=== PATIENT | male | born 1955 | race Caucasian/White ===

== ENCOUNTER → 2017-04-25 10:19 | Outpatient (CLI) | payer BC, SELFPAY ==
[2017-04-25 10:53] LABS: Blood Urea Nitrogen 18 mg/dL (7-18); Creatinine,Serum 0.83 mg/dL (0.70-1.30); Estimated Glomerular Filt Rate 95 ml/min (>60); GFR (African American) 114 ML/MIN (>60)
== END ==
PROVIDERS: PCP Otolaryngology; Visit Provider Otolaryngology
DX: R59.0 Localized enlarged lymph nodes (principal)
CPT/HCPCS: 36415; 82565; 84520

== ENCOUNTER → 2017-05-09 08:33 | Outpatient (CLI) | payer BC, SELFPAY ==
--- NOTE | 2017-05-09 08:41 | CT_ITS ---
CT soft tissue neck w con INDICATION: Neck swelling, difficulty with intubation with possible mass while intubating, enlarged lymph nodes ITS.REASON: neck swelling ORDERING PHYSICIAN: Brendan Stern MD PATIENT AGE: 61 years COMPARISON: None TECHNIQUE: Axial images are obtained with 75 mL's of Isovue-370 contrast. Sagittal and coronal reformatted images are reviewed as well. All CT scans at the facility use one or more dose reduction, viz: automated exposure control; ma/kV adjustment per patient size (including targeted exams where dose is matched to indication; i.e. head); or iterative reconstruction technique. FINDINGS: There is a 3.4 x 3.2 x 2.6 cm fatty mass within the hypopharynx. This is well-circumscribed with only some minimal slight increased density centrally. This is located below the level of the epiglottis and just superior to the vocal folds epicentered within the central and posterior aspect of the hypopharynx but with significant narrowing of the airway anteriorly. This is at the C4-C5 level. This is consistent with a lipoma. There is some slight increased density centrally. A low-grade liposarcoma would be included in the differential diagnosis. There are scattered small nodes within the neck. No dominant adenopathy.. The thyroid gland has an unremarkable appearance. There are few small nodes in the superior mediastinum. Lung apices are clear. There is mild degenerative disc disease at C6-C7. There is moderate mucosal thickening of the ethmoid sinuses with retention cyst in the sphenoid sinuses and bilateral maxillary sinuses measuring up to 2.6 cm in the right maxillary sinus. 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 Low-grade liposarcoma felt to be less likely but not totally excluded due to slight increased density within the central aspect of the lesion. No adenopathy or other significant anomalies.
[2017-05-09 08:51] LABS: Blood Urea Nitrogen 15 mg/dL (7-18); Creatinine,Serum 0.67 mg/dL (0.70-1.30); Estimated Glomerular Filt Rate 121 ml/min (>60); GFR (African American) 146 ML/MIN (>60)
== END ==
PROVIDERS: Family Provider Family Medicine; PCP Otolaryngology; Visit Provider Otolaryngology
DX: R59.0 Localized enlarged lymph nodes (principal)
CPT/HCPCS: 36415; 70491; 82565; 84520; Q9967

== ENCOUNTER 2022-11-21 08:28 | Emergency (ER) | payer BC, SELFPAY ==
[2022-11-21] VITALS (9 sets, daily range): BP systolic 116–162; BP diastolic 70–115; PULSE 57–83; RESP 16; TEMP 36.9; O2SAT 90–97; BMI 28.8
--- NOTE | 2022-11-21 08:43 | PC.NURSE ---
covid/flu sent to lab
[2022-11-21 08:45] LABS: Coronavirus 19, PCR Not Detected (NotDetected); Influenza A, PCR Not Detected (NotDetected); Influenza B, PCR Not Detected (NotDetected)
--- NOTE | 2022-11-21 08:47 | XR_ITS ---
FINAL REPORT CLINICAL HISTORY: fever, diarrhea, ronchi L>R FINDINGS: Two views of the chest were obtained. The heart size and pulmonary vascularity are within normal limits. The mediastinum is normal. There is a 7 cm right midlung mass most worrisome for neoplasm. Localized infection is also a possibility but less likely. There is no pneumothorax. The bony thorax is intact. IMPRESSION: Right mid lung mass worrisome for neoplasm. Chest CT with contrast is recommended for further evaluation. Reviewed, Interpreted and Dictated by Eduard Nye III, MD Transcribed by Tia Bangura Authenticated and [facility]
--- NOTE | 2022-11-21 08:55 | HMH.EDGENADL ---
Discharge Plan Disposition Patient Disposition: Still a Patient Condition: Good Prescriptions Prescriptions: New albuterol sulfate 90 mcg/actuation aerosol powdr breath activated 2 inh inhalation Q4H PRN (Reason: shortness of breath or wheezing) Qty: 1 0RF albuterol sulfate 2.5 mg/0.5 mL solution for nebulization 2.5 mg inhalation Q4H PRN (Reason: bronchospasm) Qty: 30 0RF No Action montelukast [Singulair] 10 mg tablet 10 mg PO QAM Qty: 90 2RF fluticasone propionate [Flonase Allergy Relief] 50 mcg/actuation spray,suspension 1 spray INTRANASAL ONCE Qty: 9.9 4RF Rx Instructions: administer into each nostril Referrals Follow up/Referrals: Shayla Grajeda MD [Staff Physician] - See instructions Jj Coates MD [Primary Care Provider] - See instructions Joie Patel MD [Physician] - See instructions Activity Restrictions/Add. Instructions Additional Instructions/Restrictions: You were evaluated in the emergency department today. Your x-ray and CT scan of your chest are highly concerning for cancer of your right lung. Given this, I recommend very quick outpatient follow-up with your primary care provider, oncology, and pulmonology. I have provided you with information for oncology and pulmonology. Dr. Grajeda's office is to call you with an appointment. If you do not hear from them, please contact them. Please also call Dr. Coates's office to schedule an appointment as soon as possible. Dr. Patel is the rodent exterminator, and he will be scheduling you for an appointment as well. Please return to the emergency department for new or worsening symptoms, such as difficulty breathing, significant lightheadedness, or other concerns. 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 Clinical Impressions Clinical Impression: Lung neoplasm Instructions Patient Instructions: DI for Lung Cancer Discharge ED Provider: Tasia López General Adult HPI General Chief complaint: Fever Stated complaint: fever Time Seen by Provider: 11/21/22 08:39 Mode of Arrival: Ambulatory Source of Information: Patient Limitations: No Limitations Description of Symptoms (Recalled from ER Triage Doc. by RN): Patient complaint of fever and no energy for 3 days. History of Present Illness HPI narrative: This patient is a 67-year-old male who denies significant past medical history presented to the emergency department for evaluation with concern for subjective fevers, lack of energy, and mild diarrhea for approximately 3 days. He denies any other concerns, such as sore throat, cough, congestion, abdominal pain, nausea, vomiting, hematochezia, melena, or other concerns. He denies any rashes, swelling, or wounds. He states that he just feels like he cannot go and has been listless. He does note smoking history. Related Data Previous Rx's Medication Instructions Recorded fluticasone propionate 50 1 spray intranasal ONCE #9.9 grams 04/25/17 mcg/actuation nasal spray,suspension (Flonase Allergy Relief) montelukast 10 mg tablet 10 mg PO QAM #90 tabs 04/25/17 (Singulair) albuterol sulfate 2.5 mg/0.5 mL 2.5 mg (0.5 mL) inhalation Q4H PRN 11/21/22 solution for nebulization bronchospasm #30 ea albuterol sulfate 90 mcg/actuation 2 inh inhalation Q4H PRN shortness 11/21/22 breath activated powder inhaler of breath or wheezing #1 ea Allergies Allergy/AdvReac Type Severity Reaction Status Date / Time No Known Allergies Allergy Verified 05/15/17 11:52 [facility] Disclaimer: The information contained in this section may have been updated after the patient was seen, as this information can be updated by other users. Medical History Dyspnea on exertion Hilar lymphadenopathy Lung mass Mediastinal lymphadenopathy Pneumonia Smoking greater than 30 pack years Social History (Updated 11/21/22 @ 14:04 by Joie Patel MD) Smoking Status: Current every day smoker tobacco type: cigarettes packs per da
[2022-11-21 09:44] LABS: Chloride 104 mmol/L (98-107); Potassium 3.9 mmoL/L (3.5-5.1); Sodium 135 mmol/L (136-145)
[2022-11-21 09:46] LABS: Basophils # 0.1 K/mm3 (0-0.2); Basophils % 1.2 % (0.1-2.0); Eosinophils # 0.3 K/mm3 (0.0-0.4); Eosinophils % 2.6 % (0.1-12.0); Hematocrit 45.3 % (42.0-52.0); Lymphocytes # 2.3 K/mm3 (0.7-4.5); Lymphocytes % 19.8 % (10-50); Mean Corpuscular Hemoglobin 28.8 pg (27.0-31.2); Mean Corpuscular Volume 87.3 fl (80-94); Mean Platelet Volume 9.1 fl (7.4-10.4); Monocytes # 0.7 K/mm3 (0.1-1.0); Monocytes % 6.2 % (1.7-9.3); Neutrophils # 7.9 K/mm3 (1.8-7.8); Neutrophils % 70.1 % (37.0-80.0); Platelet Count 288 K/mm3 (142-424); Red Blood Count 5.19 M/mm3 (4.60-6.20); Red Cell Distribution Width 12.9 % (11.5-17.5); White Blood Count 11.3 K/mm3 (4.8-10.8)
[2022-11-21 09:47] LABS: Alanine Aminotransferase 23 U/L (12-78); Albumin Level 4.1 g/dl (3.5-5.0); Alkaline Phosphatase 61 U/L (38-126); Anion Gap 14.9 mEq/L (5-15); Aspartate Amino Transferase 31 U/L (17-59); Bilirubin,Total 0.5 mg/dl (0.2-1.3); Blood Urea Nitrogen 26 mg/dl (9-20); Calcium 8.5 mg/dl (8.4-10.2); Carbon Dioxide 20 mmol/L (22.0-30.0); Creatinine Clearance Estimated 89 mL/min (50-200); Estimated Glomerular Filt Rate 75 ml/min (>60); GFR (African American) 90 ML/MIN (>60); Globulin 4.1 g/dL (1.3-3.2); Glucose 110 mg/dl (74-100); Total Protein,Serum 8.2 g/dl (6.3-8.2)
--- NOTE | 2022-11-21 10:06 | PC.NURSE ---
Rounded on pt no needs at this time,call light at bs
--- NOTE | 2022-11-21 10:26 | CT_ITS ---
FINAL REPORT CLINICAL HISTORY: Abnormal chest x-ray COMPARISON: Chest x-ray dated 11/21/2022 FINDINGS: Axial CT images of the chest were obtained with contrast. Coronal reformatted images were also obtained. This study was performed with techniques to keep radiation doses as low as reasonably achievable, (ALARA). Individualized dose reduction techniques using automated exposure control or adjustment of mA and/or KV according to the patient's size were employed. There is mediastinal adenopathy. There is a right paratracheal node measuring 5.2 x 4.0 cm. A subcarinal lymph node measures 6 x 3.4 cm. There multiple other enlarged mediastinal lymph nodes. There is mild emphysema. There is an 8.3 x 6.5 cm right hilar mass consistent with neoplasm. Limited images of the upper abdomen reveal moderate ascites. IMPRESSION: 8.3 x 6.5 cm right hilar mass consistent with neoplasm. Mediastinal adenopathy. Reviewed, Interpreted and Dictated by Eduard Nye III, MD Transcribed by Tia Bangura Authenticated and [facility]
--- NOTE | 2022-11-21 12:55 | PC.NURSE ---
spoke with oncologist office for referral for pt to be seen
--- NOTE | 2022-11-21 13:04 | PC.NURSE ---
Paged to speak with
--- NOTE | 2022-11-21 13:56 | EXP.PULM.CON ---
History of Present Illness History of present illness: Mr. Daniel is a 67-year-old male current smoker greater than [id number] smoking history presented to the ER complaining of febrile illness and lack of energy for the last 3 days. Upon evaluation in the ED patient had a CT scan performed that showed lung mass along with mediastinal hilar lymphadenopathy highly concerning for malignancy at this point of time and pulmonary was called for further evaluation and management [facility] Disclaimer: The information contained in this section may have been updated after the patient was seen, as this information can be updated by other users. Medical History Dyspnea on exertion Hilar lymphadenopathy Lung mass Mediastinal lymphadenopathy Pneumonia Smoking greater than 30 pack years Social History Smoking Status: Current every day smoker tobacco type: cigarettes packs per day: 1 alcohol intake: current substance use type: denies use current occupational status: employed Travel in the last 8 weeks: None Review of Systems Constitutional Constitutional: Reports anorexia, Reports body ache(s), Reports fatigue, Reports poor appetite and Reports lethargy Eyes Eyes: Denies eye discharge, Denies dry eyes, Denies irritation and Denies itchy eyes ENT Ears, Nose, Mouth, and Throat: Denies epistaxis, Denies facial pain, Denies lip swelling and Denies throat swelling *Cardiovascular Cardiovascular: Reports dyspnea and Reports dyspnea on exertion *Respiratory Respiratory: Reports chest congestion, Reports cough, Reports dyspnea, Reports dyspnea on exertion, Reports excessive phlegm production and Reports wheezing *Gastrointestinal Gastrointestinal: Denies abdominal pain, Denies belching and Denies cramping *Musculoskeletal Musculoskeletal: Reports back pain, Reports myalgias and Reports other (No small joint swelling or Pain) Psychiatric Psychiatric: Denies homicidal ideation and Denies suicidal ideation Endocrine Endocrine: Reports fatigue and Denies heat intolerance Hematologic/Lymphatic Hematologic/Lymphatic: Denies easy bleeding and Denies lymphadenopathy Allergic/Immunologic Allergic/Immunologic: Denies itchy eyes, Denies lip swelling, Denies throat swelling and Reports wheezing Pulmonology Exam Inpatient Vital signs and Labs for Last 24 Hours: Temp Pulse Resp BP Pulse Ox O2 Del Method 98.4 F 59 L 16 154/90 H 97 Room Air 11/21/22 08:30 11/21/22 13:00 11/21/22 08:30 11/21/22 13:00 11/21/22 13:00 11/21/22 08:30 Laboratory Results - last 24 hr 11/21/22 08:41: SARS-CoV-2 (PCR) Not detected, Influenza A Untype (PCR) Not detected, Influenza Type B (PCR) Not detected 11/21/22 09:00: WBC 11.3 H, RBC 5.19, Hgb 15.0, Hct 45.3, MCV 87.3, MCH 28.8, MCHC 33.0, RDW 12.9, Plt Count 288, MPV 9.1, Neut % (Auto) 70.1, Lymph % (Auto) 19.8, [place] % (Auto) 6.2, Eos % (Auto) 2.6, Baso % (Auto) 1.2, Neut # (Auto) 7.9 H, Lymph # (Auto) 2.3, [place] # (Auto) 0.7, Eos # (Auto) 0.3, Baso # (Auto) 0.1, Sodium 135 L, Potassium 3.9, Chloride 104, Carbon Dioxide 20 L, Anion Gap 14.9, BUN 26 H, Creatinine 1.00, Estimated Creat Clear 89, Estimated GFR 75, Est GFR ( Amer) 90, Glucose 110 H, Calcium 8.5, Total Bilirubin 0.5, AST 31, ALT 23, Alkaline Phosphatase 61, Total Protein 8.2, Albumin 4.1, Globulin 4.1 H, Albumin/Globulin Ratio 1.0 L I & O for Labs for Last 24 Hours: Intake & Output 11/18/22 11/19/22 11/20/22 11/21/22 23:59 23:59 23:59 23:59 Weight 190 lb Constitutional: Present moderate distress Head: Present normocephalic and atraumatic ENT: Present normal exam, normal oropharynx and mucous membranes moist Neck: Present normal inspection and full ROM Respiratory: Present wheezes, crackles, diminished air movement and able to speak in complete sentences Cardiac: Present S1/S2, Tachycardia and radial pulses present GI: Present soft and distention; Absent tenderness or guarding Skin: Pr
--- NOTE | 2022-11-21 14:14 | PC.NURSE ---
Ning from called with pt follow up appointment in office on Nov 26 @ 10:45 and His procedure was scheduled for Dec 02 @ 11:30 but to remind pt before any of this can happen he needs to bring in proof of insurance information, relayed message to pt and also gave him a post it note with appointment information for both days
--- NOTE | 2022-11-21 14:18 | SW/DCPLANNER ---
Patient information/order has been faxed to [facility] for a nebulizer machine. Patient does not have insurance information on him at this time and understands to provide information to [facility] once he returns home.
== END 2022-11-21 14:22 | disposition still patient (30) ==
PROVIDERS: Emergency Provider Emergency Medicine; PCP Family Medicine
DX: R91.8 Other nonspecific abnormal finding of lung field (principal); R59.0 Localized enlarged lymph nodes; F17.210 Nicotine dependence, cigarettes, uncomplicated; R06.09 Other forms of dyspnea; R53.83 Other fatigue
CPT/HCPCS: 71046; 71260; 80053; 85025; 87636; 99284

== ENCOUNTER 2022-12-02 09:50 | Day surgery (SDC) | payer BC, SELFPAY ==
[2022-11-29 13:35] VITALS: BMI 29.7
[2022-12-02] VITALS (9 sets, daily range): BP systolic 104–185; BP diastolic 60–98; PULSE 80–103; RESP 18–22; TEMP 36.1–36.4; O2SAT 92–96
[2022-12-02 10:52] LABS: Anion Gap 10.1 mEq/L (5-15); Blood Urea Nitrogen 19 mg/dl (9-20); Carbon Dioxide 29 mmol/L (22.0-30.0); Chloride 103 mmol/L (98-107); Creatinine Clearance Estimated 91 mL/min (50-200); Estimated Glomerular Filt Rate 97 ml/min (>60); GFR (African American) 117 ML/MIN (>60); Glucose 107 mg/dl (74-100); Potassium 4.1 mmoL/L (3.5-5.1); Sodium 138 mmol/L (136-145)
[2022-12-02 10:55] LABS: Basophils # 0.2 K/mm3 (0-0.2); Basophils % 1.5 % (0.1-2.0); Eosinophils # 0.3 K/mm3 (0.0-0.4); Hematocrit 44.2 % (42.0-52.0); Hemoglobin 15.3 g/dL (14.1-18.0); Lymphocytes # 2.2 K/mm3 (0.7-4.5); Lymphocytes % 22.7 % (10-50); Mean Corpuscular HGB Conc 34.7 g/dL (31.8-35.4); Mean Corpuscular Hemoglobin 30.4 pg (27.0-31.2); Mean Corpuscular Volume 87.6 fl (80-94); Mean Platelet Volume 8.8 fl (7.4-10.4); Monocytes # 0.6 K/mm3 (0.1-1.0); Monocytes % 5.8 % (1.7-9.3); Neutrophils # 6.6 K/mm3 (1.8-7.8); Platelet Count 270 K/mm3 (142-424); Red Blood Count 5.04 M/mm3 (4.60-6.20); Red Cell Distribution Width 12.7 % (11.5-17.5); White Blood Count 9.8 K/mm3 (4.8-10.8)
--- NOTE | 2022-12-02 11:55 | EXP.ANES.CKL ---
[facility] Disclaimer: The information contained in this section may have been updated after the patient was seen, as this information can be updated by other users. Medical History Dyspnea on exertion Hilar lymphadenopathy Lung mass Mediastinal lymphadenopathy Pneumonia Smoking greater than 30 pack years Surgical History History of appendectomy History of surgery on upper extremity History of throat surgery History of tonsillectomy Family History Other Diabetes Family history of cancer Hypertension Social History Smoking Status: Current every day smoker tobacco type: cigarettes packs per day: 1 alcohol intake: former substance use type: denies use current occupational status: employed Travel in the last 8 weeks: None [facility] Anesthesia Checklist Patient Identification Patient Identification: Arm Band, Family and Verbal (Name & ) Structural Data Admitted From: Home Planned Operative Procedure/s: BRONCH w/EBUS Consent for Planned Operative Procedure(s) Verified: Yes Verified Documents: Surgical Consent and History and Physical NPO Status Verified Time NPO: 00:00 Chart Verification Results Verified: CBC, BMP and Chest Xray Additional verifications Patient : No Anesthesia Reactions: No Hx Blood Transfusions: No Blood Transfusion Reaction: No Previous Colonoscopy: No Cardiovascular Assessment Heart Sounds: S1 & S2 Pulse Rhythm: Irregular Peripheral Edema: No Airway Assessment Mallampati Score:: Class III C-Spine Mobility Assessed: Yes TMJ Mobility Assessed: Yes Dentition: Poor Dentition (Many missing. Nothing loose per pt.) Neurological Assessment Level of Consciousness: Awake, Alert and Appropriate Hx Seizures: No Numbness or tingling in extremities: No Anesthesia Plan Anesthesia Risk discussed: Yes Anesthesia Plan: Verified ASA Class: III Anesthesia Type: General
--- NOTE | 2022-12-02 13:44 | XR_ITS ---
FINAL REPORT CLINICAL HISTORY: BRONCH IN OR 1.0 min fluoro time 26.77 mGy FINDINGS: FLUOROSCOPY LESS THAN 1 HOUR HISTORY: Fluoroscopy for bronchoscopic evaluation. FINDINGS: Fluoroscopy was performed for bronchoscopy. A single spot film was obtained. 60 seconds of fluoroscopy time was used. IMPRESSION: As above. Reviewed, Interpreted and Dictated by Eduard Nye III, MD Transcribed by Diya Hernandez Authenticated and [facility]
--- NOTE | 2022-12-02 13:55 | EXP.BRONCH.N ---
Procedure: Date: 12/02/22 Patient Date of :: 1955 Procedure Performed:: Bronchoscopy airway examination, transbronchial and endobronchial lung biopsy, bronchoalveolar lavage, endobronchial ultrasound-guided fine-needle aspiration of lymph node Indications:: Lung mass and lymphadenopathy Performing Provider:: Joie Patel MD Referring Provider:: Dr: Jj Coates MD Sedation:: General anesthesia Procedure:: Bronchoscopy airway examination, transbronchial and endobronchial lung biopsy, bronchoalveolar lavage, endobronchial ultrasound-guided fine-needle aspiration of lymph node: A clean EBUS bronchoscopy was advanced the ET tube and lymph node surveillance was performed. Patient recovered lymphadenopathy station 4 and station 7. Five passes were performed at each forementioned ode station and the respective FNA sample was sent in CytoLyt for cytopathologic examination. EBUS bronchoscopy was retracted and A clean DIAGNOSTIC bronchoscopy was advanced through the ET tube and airways were examined up to subsegmental bronchi. Airways appeared grossly normal except for the noted endobronchial lesion in the right lower lobe bronchus partially occluding the airway lumen. Copious amount of mucoid secretions were suctioned from the left lower lobe bronchus. No evidence of active bleeding/old blood clots noted. Bronchoalveolar lavage was performed in the RIGHT LOWER LOBE with instillation of 60 cc normal saline with return of 30 cc back. BAL fluid was sent for cell count and differential along with bacterial fungal and AFB stain and cultures. Transbronchial biopsy was performed in the RIGHT LOWER LOBE with a total of 5 biopsies performed and were sent in formalin for cytopathologic examination. Endobronchial biopsies were also performed the noted RIGHT LOWER LOBE endobronchial lesion were sent in formalin for cytopathologic examination Patient tolerated the procedure with no immediate acute complications. We will follow the patient in pulmonary clinic in 7 to 10 days. Findings:: Please see the procedure note Recommendations:: Postoperative bronchoscopy instructions. Follow in pulmonary clinic in 5 to 7 days postprocedure Complications:: No acute immediate complication Estimated blood obtained (mL): 15
--- NOTE | 2022-12-02 14:10 | XR_ITS ---
FINAL REPORT CLINICAL HISTORY: post op bronchoscopy COMPARISON: 11/21/2022 FINDINGS: A single portable view of the chest was obtained. The heart size and pulmonary vascularity are within normal limits. There is mediastinal widening worrisome for mediastinal adenopathy. Right mid lung mass again noted. No pneumothorax. The bony thorax is intact. IMPRESSION: No pneumothorax post bronchoscopy. Right mid lung mass again noted. Reviewed, Interpreted and Dictated by Eduard Nye III, MD Transcribed by Guerda Fulton Authenticated and [facility]
--- NOTE | 2022-12-03 13:12 | P.PNANES_ITS ---
[facility] Anesthesia Record Part II Anesthesia Record Part II Discharge Time: 14:24 Destination: Surgical Day Care (OP Surgery) PACU nurse assessment reviewed?: Yes Patient Condition:: Good Anesthesia Complications:: None Swallowing reflex intact?: Yes Airway Patency: Patent Cyanosis?: No Blood Pressure: 166/98 SaO2: 94 Respiratory Rate: 21 Pulse Rate: 90 Temperature: 97.5 F Mental Status: Alert & Oriented Pain level:: 0 Nausea and/or vomitting:: None Intake, IV Amount: 1,000 Hydration: Adequate
[2022-12-03 13:13] VITALS: BP 166/98; PULSE 90; RESP 21; TEMP 36.4; O2SAT 94
== END 2022-12-02 15:07 | disposition home or self-care (01) ==
PROVIDERS: PCP Family Medicine; Visit Provider Internal Medicine Pulmonary Disease
PROC: (CPT 31652; principal; 2022-12-02 11:30)
DX: R91.1 Solitary pulmonary nodule (principal); R91.8 Other nonspecific abnormal finding of lung field; R59.0 Localized enlarged lymph nodes; F17.210 Nicotine dependence, cigarettes, uncomplicated
CPT/HCPCS: 31652; 31624; 31628; 71045; 80048; 85025; 87070; 87102; 87116; 87186; 87205; 87206; J2710

== ENCOUNTER 2022-12-20 13:33 | Emergency (ER) | payer BC, SELFPAY ==
[2022-12-20 13:35] VITALS: BP 156/92; PULSE 96; RESP 16; TEMP 36.4; O2SAT 97; BMI 29.6
--- NOTE | 2022-12-20 13:58 | PC.NURSE ---
NIH score: 0. Bilateral pupils 3mm PERRLA
--- NOTE | 2022-12-20 14:25 | HMH.EDGENADL ---
Discharge Plan Disposition Patient Disposition: Home, Self-Care Condition: Good Prescriptions Prescriptions: No Action amoxicillin-pot clavulanate [Augmentin] 500-125 mg tablet 1 tab PO Q8H 7 Days Qty: 21 0RF ipratropium-albuterol 0.5 mg-3 mg(2.5 mg base)/3 mL solution for nebulization 3 ml inhalation Q8H 90 Days Qty: 540 3RF albuterol sulfate 90 mcg/actuation aerosol powdr breath activated 2 inh inhalation Q4H PRN (Reason: shortness of breath or wheezing) Qty: 1 0RF Referrals Follow up/Referrals: Jj Coates MD [Primary Care Provider] - See instructions Activity Restrictions/Add. Instructions Additional Instructions/Restrictions: You were evaluated in the emergency department today for concerns of double vision/blurry vision. Your vision is 20/70 in both eyes. You only have double vision out of your right eye in the right lower quadrant. This is reassuring against central nervous system causes. Your ultrasound of the eye was also reassuring. You are being referred to Dr. Isaac with ophthalmology for follow-up. Continue taking all home medications as prescribed. Make an appointment with your primary care physician for reevaluation in 2 to 3 days as well. Return to the emergency department with any new, worsening, or otherwise concerning symptoms as discussed. Appointment with Dr. Isaac: Friday 11AM [facility] at [address] [place] [address] Clinical Impressions Clinical Impression: Monocular diplopia of right eye Discharge ED Provider: Rae Ortega General Adult HPI General Chief complaint: Eye Problems Stated complaint: blurry vision Time Seen by Provider: 12/20/22 14:10 Mode of Arrival: Ambulatory Source of Information: Patient Limitations: No Limitations Description of Symptoms (Recalled from ER Triage Doc. by RN): Presents to ED with c/o double peripheral vision out of the right eye. Patient states he had a new lense prescription 4 months ago and has possible cataracts in the right eye. Visual acuity: 20/70 bilaterally. Denies loss of vision or blurred vision. PMH:COPD History of Present Illness HPI narrative: This 67-year-old male presents to the emergency department with concerns of double vision out of the right eye in the right lower quadrant of his vision. Patient states he had his last eye exam about 4 months ago and got new lenses at that time. 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 He states it was also blurry that direction. He states he has not had any additional episodes of this since that time but continues to have double vision in his right lower quadrant of his visual field. He has this whether he is wearing his glasses or not. He is otherwise completely asymptomatic. Related Data Previous Rx's Medication Instructions Recorded albuterol sulfate 90 mcg/actuation 2 inh inhalation Q4H PRN shortness 11/21/22 breath activated powder inhaler of breath or wheezing #1 ea amoxicillin 500 mg-potassium 1 tab PO Q8H 7 days #21 tabs 11/26/22 clavulanate 125 mg tablet (Augmentin) ipratropium 0.5 mg-albuterol 3 mg 3 ml inhalation Q8H 3 months #540 11/26/22 (2.5 mg base)/3 mL nebulization mL soln Allergies Allergy/AdvReac Type Severity Reaction Status Date / Time No Known Allergies Allergy Verified 12/06/22 10:42 [facility] Disclaimer: The information contained in this section may have been updated after the patient was seen, as this information can be updated by other users. Medical History Dyspnea on exertion Hilar lymphadenopathy Lung mass Mediastinal lymphadenopathy Pneumonia Smoking greater than 30 pack years Surgical History (Updated 12/06/22 @ 10:42 by Rashida Soto) History of appendectomy History of bronchoscopy History of surgery on upper extremity History of throat surgery History of tonsillectomy
[2022-12-20 15:27] VITALS: BP 130/87; PULSE 82; RESP 16; TEMP 36.4; O2SAT 98
== END 2022-12-20 15:34 | disposition home or self-care (01) ==
PROVIDERS: Emergency Provider Emergency Medicine; PCP Family Medicine
DX: H53.2 Diplopia (principal); F17.210 Nicotine dependence, cigarettes, uncomplicated
CPT/HCPCS: 99284

== ENCOUNTER → 2022-12-27 10:31 | Outpatient (CLI) | payer BC, SELFPAY ==
[2022-12-27 12:44] LABS: Blood Urea Nitrogen 19 mg/dl (9-20); Estimated Glomerular Filt Rate 97 ml/min (>60); GFR (African American) 117 ML/MIN (>60)
== END ==
PROVIDERS: PCP Family Medicine; Visit Provider Internal Medicine Medical Oncology
DX: C34.90 Malignant neoplasm of unspecified part of unspecified bronchus or lung (principal)
CPT/HCPCS: 36415; 82565; 84520

== ENCOUNTER → 2023-01-01 09:04 | Outpatient (CLI) | payer BC, SELFPAY | PROVIDERS: PCP Family Medicine; Visit Provider Internal Medicine Medical Oncology | DX: C34.90 Malignant neoplasm of unspecified part of unspecified bronchus or lung (principal) ==

== ENCOUNTER → 2023-01-03 06:40 | Outpatient (CLI) | payer BC, SELFPAY ==
--- NOTE | 2023-01-03 07:11 | CT_ITS ---
FINAL REPORT TECHNIQUE: Multiple axial CT sections were performed from the foramen magnum to the vertex. Coronal reformatted images were also obtained. Precontrast and postcontrast injection images were obtained. This study was performed with technique to keep radiation doses as low as reasonably achievable, (ALARA). Individualized dose reduction techniques using automated exposure control or adjustment of mA and/or kV according to the patient size were employed. 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 There is generalized decreased attenuation in the occipital lobes, left greater than right. Bilateral occipital masses are identified. Mass on the left measures 3.0 cm in diameter. Mass on the right is less well seen but appears to represent 2.0 cm. There is a small enhancing mass in the more superior right occipital lobe measuring 7 mm well seen on image 34 of series 7. The ventricles are normal in size. There is no evidence of hemorrhage. No extra-axial fluid collection is seen. There is lobular mucoperiosteal thickening in both maxillary sinuses. No osseous abnormality is seen on the bone window images. IMPRESSION: Masses in the occipital lobes bilaterally with surrounding vasogenic edema, probably due to metastases. If at all possible, pre and post MRI is highly recommended. Reviewed, Interpreted and Dictated by Kurt Tadeo MD Transcribed by Raysa Pablo Authenticated and [facility]
== END ==
PROVIDERS: PCP Family Medicine; Visit Provider Internal Medicine Medical Oncology
DX: C34.90 Malignant neoplasm of unspecified part of unspecified bronchus or lung (principal); Z72.0 Tobacco use
CPT/HCPCS: 70470; Q9967

== ENCOUNTER 2023-01-14 14:56 | Outpatient (CLI) | payer BC, SELFPAY ==
--- NOTE | 2023-01-14 15:31 | PC.NURSE ---
1500- labs drawn per MD Idania via butterfly needle in left ac. needle removed and coban applied. pt tolerated well.
== END 2023-01-14 15:13 | disposition home or self-care (01) ==
LOC: INF 14:58
PROVIDERS: PCP Family Medicine; Visit Provider Internal Medicine
DX: Z45.2 Encounter for adjustment and management of vascular access device; C34.91 Malignant neoplasm of unspecified part of right bronchus or lung
CPT/HCPCS: G0463

== ENCOUNTER 2023-01-29 11:33 | Outpatient (CLI) | payer BC, SELFPAY ==
[2023-01-29 11:37] VITALS: BMI 31.0
--- NOTE | 2023-01-29 11:50 | PC.NURSE ---
1145- cbc and cmp drawn per md order via butterfly needle in right ac, needle removed and coban applied. pt tolerated well.
[2023-01-29 11:58] LABS: Basophils # 0.1 K/mm3 (0-0.2); Basophils % 0.7 % (0.1-2.0); Eosinophils # 0.5 K/mm3 (0.0-0.4); Eosinophils % 3.3 % (0.1-12.0); Hematocrit 42.6 % (42.0-52.0); Lymphocytes % 7.1 % (10-50); Mean Corpuscular HGB Conc 32.8 g/dL (31.8-35.4); Mean Corpuscular Hemoglobin 29.3 pg (27.0-31.2); Mean Corpuscular Volume 89.3 fl (80-94); Mean Platelet Volume 8.8 fl (7.4-10.4); Monocytes # 0.3 K/mm3 (0.1-1.0); Monocytes % 2.3 % (1.7-9.3); Neutrophils # 11.7 K/mm3 (1.8-7.8); Neutrophils % 86.5 % (37.0-80.0); Platelet Count 222 K/mm3 (142-424); Red Blood Count 4.77 M/mm3 (4.60-6.20); Red Cell Distribution Width 13.8 % (11.5-17.5); White Blood Count 13.6 K/mm3 (4.8-10.8)
[2023-01-29 12:00] LABS: Chloride 104 mmol/L (98-107); Potassium 4.3 mmoL/L (3.5-5.1); Sodium 136 mmol/L (136-145)
[2023-01-29 12:03] LABS: Alanine Aminotransferase 35 U/L (12-78); Albumin Level 4.1 g/dl (3.5-5.0); Albumin/Globulin Ratio 1.3 (1.1-1.8); Alkaline Phosphatase 59 U/L (38-126); Anion Gap 11.3 mEq/L (5-15); Aspartate Amino Transferase 30 U/L (17-59); Bilirubin,Total 0.3 mg/dl (0.2-1.3); Blood Urea Nitrogen 29 mg/dl (9-20); Calcium 8.7 mg/dl (8.4-10.2); Carbon Dioxide 25 mmol/L (22.0-30.0); Creatinine Clearance Estimated 95 mL/min (50-200); Estimated Glomerular Filt Rate 97 ml/min (>60); GFR (African American) 117 ML/MIN (>60); Globulin 3.1 g/dL (1.3-3.2); Glucose 128 mg/dl (74-100); MANUAL DIFFERENTIAL MANUAL DIFFERENTIAL (MANUAL DIFF); Total Protein,Serum 7.2 g/dl (6.3-8.2)
[2023-01-29 12:26] LABS: Eosinophils % 3 % (0-3); Lymphocytes % 5 % (10-50); Monocytes % 1 % (2-9); Neutrophils % 91 % (42-76); Platelet Estimate Normal; RBC Morphology Normal; Total Cells Counted 100
== END 2023-01-29 11:49 | disposition home or self-care (01) ==
LOC: INF 11:33
PROVIDERS: Visit Provider Internal Medicine Medical Oncology
DX: C34.91 Malignant neoplasm of unspecified part of right bronchus or lung (principal); Z45.2 Encounter for adjustment and management of vascular access device
CPT/HCPCS: 36415; 80053; 85007; 85025

== ENCOUNTER → 2023-01-30 08:04 | Outpatient (CLI) | payer BC, SELFPAY ==
--- NOTE | 2023-01-30 08:12 | CT_ITS ---
FINAL REPORT TECHNIQUE: Routine axial images were obtained from the lung apices to below the diaphragm following IV contrast administration. Individualized dose reduction techniques using automated exposure control or adjustment of the mA and/or kV according to the patient size were employed. CLINICAL HISTORY: LUNG CANCER COMPARISON: 11/21/2022 FINDINGS: CT CHEST WITH CONTRAST: There are multiple large intrathoracic masses identified in this patient with lung cancer. There is a right paratracheal mass, which measures 6.3 x 4.8 cm in size, given differences in technique similar to the prior exam. There is a large right perihilar mass measuring 8 x 6.4 cm in size, similar to the prior exam. There is a subcarinal enlarged node, 5.4 x 3.3 cm in size, slightly decreased in size since the prior exam. There has been interval development of a right pleural effusion, which measures 2.5 cm in thickness. There are new prevascular nodes measuring 1.9 cm in size. Moderate ascites is identified in the upper abdomen. IMPRESSION: Multiple pulmonary masses identified, the largest in the right perihilar region as described, similar to the prior exam. There has been interval development of a right pleural effusion, and prevascular adenopathy measuring 1.9 cm in diameter. Moderate ascites is now present in the upper abdomen. Reviewed, Interpreted and Dictated by Kurt Tadeo MD Transcribed by Diya Hernandez Authenticated and [facility]
== END ==
PROVIDERS: PCP Family Medicine; Visit Provider Internal Medicine Medical Oncology
DX: C34.90 Malignant neoplasm of unspecified part of unspecified bronchus or lung (principal); Z72.0 Tobacco use
CPT/HCPCS: 71260; Q9967

== ENCOUNTER 2023-02-05 12:06 | Outpatient (CLI) | payer BC, SELFPAY ==
[2023-02-05 12:09] VITALS: BMI 30.9
--- NOTE | 2023-02-05 12:25 | PC.NURSE ---
1216-collected labs via venipuncture stick with butterfly needle in right ac;pt to d/c home and will be called with results
[2023-02-05 12:56] LABS: T4 (Thyroxine) 7.7 ug/dl (5.53-11.0)
[2023-02-05 13:10] LABS: Thyroid Stimulating Hormone 0.96 uIU/mL (0.465-4.68)
== END 2023-02-05 12:20 | disposition home or self-care (01) ==
LOC: INF 12:07
PROVIDERS: Internal Medicine Medical Oncology; PCP Family Medicine; Visit Provider Family Medicine
DX: C34.91 Malignant neoplasm of unspecified part of right bronchus or lung (principal)
CPT/HCPCS: 36415; 84436; 84443

== ENCOUNTER 2023-02-12 09:38 | Outpatient (CLI) | payer BC, SELFPAY ==
[2023-02-12] VITALS (7 sets, daily range): BP systolic 133–150; BP diastolic 70–99; PULSE 63–76; RESP 18; TEMP 36.7; O2SAT 95
[2023-02-12] MEDS: VITAMIN B-12 1,000 MCG 1ML VIAL 1000 MCG IM (10:15)
[2023-02-12] MEDS: PROCHLORPERAZINE 10MG TABLET 10 MG PO (10:15)
[2023-02-12] MEDS: SODIUM CHLORIDE 0.9% 100ML BAG 100 ML IV (10:15)
[2023-02-12] MEDS: CARBOPLATIN IV (10:50)
[2023-02-12] MEDS: SODIUM CHLORIDE 0.9% IV ×2 (10:50→12:08)
[2023-02-12] MEDS: PEMBROLIZUMAB 200 MG in 0.9 % SODIUM CHLORIDE 50 ML 116 MG IV (11:31)
[2023-02-12] MEDS: PEMETREXED DISODIUM IV (12:08)
[2023-02-12] MEDS: SODIUM CHLORIDE 0.9% 10ML FLUSH SYRINGE 10 ML IV (12:09)
== END 2023-02-12 12:45 | disposition home or self-care (01) ==
LOC: INF 09:38
PROVIDERS: PCP Family Medicine; Visit Provider Internal Medicine Medical Oncology
DX: Z51.11 Encounter for antineoplastic chemotherapy (principal); C34.31 Malignant neoplasm of lower lobe, right bronchus or lung; Z79.899 Other long term (current) drug therapy; Z72.0 Tobacco use
CPT/HCPCS: 96411; 96413; 96415; 96417; J9045; J9271; J9305

== ENCOUNTER 2023-03-27 09:46 | Outpatient (CLI) | payer MEDICARE, SELFPAY ==
[2023-03-27] VITALS (7 sets, daily range): BP systolic 134–156; BP diastolic 74–93; PULSE 63–74; RESP 16–19; O2SAT 97; BMI 30.9
[2023-03-27 10:26] LABS: Basophils # 0.1 K/mm3 (0-0.2); Basophils % 0.9 % (0.1-2.0); Eosinophils # 0.3 K/mm3 (0.0-0.4); Eosinophils % 3.8 % (0.1-12.0); Hematocrit 41.9 % (42.0-52.0); Hemoglobin 14.1 g/dL (14.1-18.0); Lymphocytes # 1.7 K/mm3 (0.7-4.5); Lymphocytes % 19.4 % (10-50); Mean Corpuscular HGB Conc 33.6 g/dL (31.8-35.4); Mean Corpuscular Hemoglobin 29.7 pg (27.0-31.2); Mean Corpuscular Volume 88.6 fl (80-94); Mean Platelet Volume 8.3 fl (7.4-10.4); Monocytes # 0.6 K/mm3 (0.1-1.0); Monocytes % 7.2 % (1.7-9.3); Neutrophils # 6.1 K/mm3 (1.8-7.8); Neutrophils % 68.8 % (37.0-80.0); Platelet Count 230 K/mm3 (142-424); Red Blood Count 4.73 M/mm3 (4.60-6.20); Red Cell Distribution Width 15.8 % (11.5-17.5); White Blood Count 8.8 K/mm3 (4.8-10.8)
[2023-03-27 10:36] LABS: Chloride 105 mmol/L (98-107); Potassium 4.4 mmoL/L (3.5-5.1); Sodium 137 mmol/L (136-145)
[2023-03-27 10:38] LABS: Alanine Aminotransferase 22 U/L (12-78); Alkaline Phosphatase 63 U/L (38-126); Aspartate Amino Transferase 29 U/L (17-59); Bilirubin,Total 0.2 mg/dl (0.2-1.3); Blood Urea Nitrogen 25 mg/dl (9-20); Creatinine Clearance Estimated 95 mL/min (50-200); Estimated Glomerular Filt Rate 97 ml/min (>60); GFR (African American) 117 ML/MIN (>60)
[2023-03-27 10:39] LABS: Albumin Level 3.9 g/dl (3.5-5.0); Albumin/Globulin Ratio 1.1 (1.1-1.8); Anion Gap 8.4 mEq/L (5-15); Calcium 8.9 mg/dl (8.4-10.2); Carbon Dioxide 28 mmol/L (22.0-30.0); Globulin 3.4 g/dL (1.3-3.2); Glucose 94 mg/dl (74-100); Total Protein,Serum 7.3 g/dl (6.3-8.2)
[2023-03-27] MEDS: 0.9 % SODIUM CHLORIDE 100 ML IV (11:03)
[2023-03-27] MEDS: SODIUM CHLORIDE 0.9% 10ML FLUSH SYRINGE 10 ML IV (11:03)
[2023-03-27] MEDS: PROCHLORPERAZINE 10MG TABLET 10 MG PO (11:03)
[2023-03-27 11:09] LABS: Thyroid Stimulating Hormone 1.77 uIU/mL (0.465-4.68)
[2023-03-27] MEDS: CARBOPLATIN IV (11:38)
[2023-03-27] MEDS: SODIUM CHLORIDE 0.9% IV ×2 (11:38→12:21)
[2023-03-27] MEDS: PEMETREXED DISODIUM IV (12:21)
[2023-03-27] MEDS: PEMBROLIZUMAB 200 MG in 0.9 % SODIUM CHLORIDE 50 ML 116 MG IV (12:34)
[2023-03-28 14:16] LABS: Adrenocorticotropic Hormone 39.5 pg/mL (7.2-63.3)
== END 2023-03-27 13:40 | disposition home or self-care (01) ==
LOC: INF 09:47
PROVIDERS: PCP Family Medicine; Visit Provider Internal Medicine Medical Oncology
DX: D49.1 Neoplasm of unspecified behavior of respiratory system (principal); Z79.899 Other long term (current) drug therapy; C34.91 Malignant neoplasm of unspecified part of right bronchus or lung; Z51.11 Encounter for antineoplastic chemotherapy
CPT/HCPCS: 80053; 82024; 82533; 84443; 85025; 96411; 96413; 96417; J9045; J9271; J9305

== ENCOUNTER 2023-04-17 09:22 | Outpatient (CLI) | payer MEDICARE, SELFPAY ==
[2023-04-17] VITALS (8 sets, daily range): BP systolic 141–168; BP diastolic 72–86; PULSE 64–77; RESP 16–17; TEMP 36.7; O2SAT 98; BMI 30.9
[2023-04-17 09:58] LABS: Basophils # 0.1 K/mm3 (0-0.2); Basophils % 1.2 % (0.1-2.0); Eosinophils % 0.5 % (0.1-12.0); Hematocrit 40.2 % (42.0-52.0); Hemoglobin 13.2 g/dL (14.1-18.0); Lymphocytes # 1.2 K/mm3 (0.7-4.5); Lymphocytes % 20.2 % (10-50); Mean Corpuscular HGB Conc 32.8 g/dL (31.8-35.4); Mean Corpuscular Volume 94.5 fl (80-94); Mean Platelet Volume 9.1 fl (7.4-10.4); Monocytes # 0.4 K/mm3 (0.1-1.0); Monocytes % 5.9 % (1.7-9.3); Neutrophils # 4.4 K/mm3 (1.8-7.8); Neutrophils % 72.1 % (37.0-80.0); Platelet Count 392 K/mm3 (142-424); Red Blood Count 4.26 M/mm3 (4.60-6.20); Red Cell Distribution Width 16.6 % (11.5-17.5); White Blood Count 6.1 K/mm3 (4.8-10.8)
[2023-04-17 10:12] LABS: Alanine Aminotransferase 31 U/L (12-78); Albumin Level 4.2 g/dl (3.5-5.0); Albumin/Globulin Ratio 1.2 (1.1-1.8); Alkaline Phosphatase 68 U/L (38-126); Anion Gap 11.1 mEq/L (5-15); Aspartate Amino Transferase 32 U/L (17-59); Bilirubin,Total 0.3 mg/dl (0.2-1.3); Blood Urea Nitrogen 31 mg/dl (9-20); Calcium 9.2 mg/dl (8.4-10.2); Carbon Dioxide 27 mmol/L (22.0-30.0); Chloride 104 mmol/L (98-107); Creatinine Clearance Estimated 95 mL/min (50-200); Estimated Glomerular Filt Rate 75 ml/min (>60); GFR (African American) 90 ML/MIN (>60); Globulin 3.5 g/dL (1.3-3.2); Glucose 123 mg/dl (74-100); Potassium 4.1 mmoL/L (3.5-5.1); Sodium 138 mmol/L (136-145); Total Protein,Serum 7.7 g/dl (6.3-8.2)
[2023-04-17] MEDS: 0.9 % SODIUM CHLORIDE 50 ML 100 ML IV (10:36)
[2023-04-17] MEDS: VITAMIN B-12 1,000 MCG 1ML VIAL 1000 MCG (10:36)
[2023-04-17] MEDS: CARBOPLATIN IV (11:13)
[2023-04-17] MEDS: SODIUM CHLORIDE 0.9% IV ×2 (11:13→11:54)
[2023-04-17] MEDS: PEMETREXED DISODIUM IV (11:54)
[2023-04-17] MEDS: PEMBROLIZUMAB 200 MG in 0.9 % SODIUM CHLORIDE 50 ML 100 MG IV (12:14)
== END 2023-04-17 13:20 | disposition home or self-care (01) ==
LOC: INF 09:24
PROVIDERS: PCP Family Medicine; Visit Provider Internal Medicine Medical Oncology
DX: C34.90 Malignant neoplasm of unspecified part of unspecified bronchus or lung (principal); C34.91 Malignant neoplasm of unspecified part of right bronchus or lung; R06.09 Other forms of dyspnea; F17.210 Nicotine dependence, cigarettes, uncomplicated; Z79.899 Other long term (current) drug therapy
CPT/HCPCS: 80053; 85025; 96411; 96413; 96417; J9045; J9271; J9305

== ENCOUNTER 2023-05-06 12:23 | Outpatient (CLI) | payer MEDICARE, SELFPAY ==
[2023-05-06 12:49] VITALS: BMI 29.3
--- NOTE | 2023-05-06 12:54 | CT_ITS ---
FINAL REPORT CLINICAL HISTORY: LUNG CANCER COMPARISON: 01/30/2023 FINDINGS: Axial CT images of the chest were obtained with contrast. Coronal and sagittal reformatted images were also obtained. This study was performed with techniques to keep radiation doses as low as reasonably achievable, (ALARA). Individualized dose reduction techniques using automated exposure control or adjustment of mA and/or KV according to the patient's size were employed. There is improved right paratracheal increased density when compared to the prior exam, on today's exam measuring 31 x 21 mm in size, was previously 63 x 48 mm in size. The subcarinal adenopathy measures 23 mm on today's exam, was previously 54 mm. The right hilar mass has markedly decreased in size, measuring 38 mm in size, was previously 80 mm in size. Other areas of mediastinal and hilar adenopathy are similarly improved. No axillary mass or adenopathy is identified. 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 There is improvement in the size of the right pleural effusion. Limited images of the upper abdomen reveal small to moderate ascites, showing partial but significant improvement. IMPRESSION: Marked improvement in the right paratracheal, subcarinal, and right hilar masses when compared to the prior CT of January 2023. 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 Decrease in size of the right pleural effusion, and small to moderate ascites. Reviewed, Interpreted and Dictated by Eduard Nye III, MD Transcribed by Diya Hernandez Authenticated and [facility]
--- NOTE | 2023-05-06 12:54 | CT_ITS ---
FINAL REPORT TECHNIQUE: Multiple axial CT sections were performed from the foramen magnum to the vertex. Coronal and sagittal reformatted images were also obtained. Precontrast and postcontrast injection images were obtained. This study was performed with technique to keep radiation doses as low as reasonably achievable, (ALARA). Individualized dose reduction techniques using automated exposure control or adjustment of mA and/or kV according to the patient size were employed. CLINICAL HISTORY: LUNG CANCER COMPARISON: 01/03/2023 FINDINGS: CT HEAD WITH AND WITHOUT CONTRAST: The patient has a known history of lung carcinoma. There is improvement in the size of the left occipital mass since the prior CT of December. On today's exam the left occipital mass has decreased to 22 mm in size, was previously 33 mm. There is also decreased enhancement in the adjacent encephalomalacia/edema. In addition, the right occipital mass seen on the prior exam is not seen on today's exam. The right sided parenchymal encephalomalacia is stable. No new mass or focus of contrast-enhancement is seen. No mass effect or midline shift is noted. Left parietal encephalomalacia is again noted. There is mucosal thickening in the paranasal sinuses, and there is worsening opacification of some mastoid air cells. IMPRESSION: Improvement in left occipital mass as described above, with decreased enhancement as well. Right occipital mass is not seen on today's exam. Reviewed, Interpreted and Dictated by Eduard Nye III, MD Transcribed by Diya Hernandez Authenticated and [facility]
[2023-05-06 13:11] LABS: Alanine Aminotransferase 59 U/L (12-78); Albumin Level 4.2 g/dl (3.5-5.0); Albumin/Globulin Ratio 1.3 (1.1-1.8); Alkaline Phosphatase 55 U/L (38-126); Anion Gap 14.9 mEq/L (5-15); Aspartate Amino Transferase 58 U/L (17-59); Bilirubin,Total 0.2 mg/dl (0.2-1.3); Blood Urea Nitrogen 29 mg/dl (9-20); Calcium 8.8 mg/dl (8.4-10.2); Carbon Dioxide 23 mmol/L (22.0-30.0); Chloride 102 mmol/L (98-107); Creatinine Clearance Estimated 90 mL/min (50-200); Estimated Glomerular Filt Rate 75 ml/min (>60); GFR (African American) 90 ML/MIN (>60); Globulin 3.2 g/dL (1.3-3.2); Glucose 132 mg/dl (74-100); Potassium 3.9 mmoL/L (3.5-5.1); Sodium 136 mmol/L (136-145); Total Protein,Serum 7.4 g/dl (6.3-8.2)
[2023-05-06] MEDS: IOPAMIDOL-370 (76%);100ML BOTTLE 75 ML IV (13:44)
== END 2023-05-06 23:59 ==
LOC: RAD 12:24
PROVIDERS: PCP Family Medicine; Visit Provider Internal Medicine Medical Oncology
DX: C34.90 Malignant neoplasm of unspecified part of unspecified bronchus or lung (principal)
CPT/HCPCS: 36415; 70470; 71260; 80053; Q9967

== ENCOUNTER 2023-05-08 10:09 | Outpatient (CLI) | payer MEDICARE, SELFPAY ==
[2023-05-08] VITALS (8 sets, daily range): BP systolic 119–146; BP diastolic 74–94; PULSE 66–72; RESP 16–17; TEMP 36.9; O2SAT 97–99; BMI 30.5
[2023-05-08] MEDS: SODIUM CHLORIDE 0.9% 10ML FLUSH SYRINGE 10 ML IV (10:25)
[2023-05-08 10:40] LABS: Basophils # 0.1 K/mm3 (0-0.2); Basophils % 1.2 % (0.1-2.0); Eosinophils # 0.1 K/mm3 (0.0-0.4); Eosinophils % 1.2 % (0.1-12.0); Hematocrit 36.2 % (42.0-52.0); Hemoglobin 11.8 g/dL (14.1-18.0); Lymphocytes # 2.3 K/mm3 (0.7-4.5); Lymphocytes % 25.5 % (10-50); Mean Corpuscular HGB Conc 32.7 g/dL (31.8-35.4); Mean Corpuscular Hemoglobin 33.1 pg (27.0-31.2); Mean Corpuscular Volume 101.3 fl (80-94); Mean Platelet Volume 8.8 fl (7.4-10.4); Monocytes # 0.7 K/mm3 (0.1-1.0); Monocytes % 8.1 % (1.7-9.3); Neutrophils # 5.7 K/mm3 (1.8-7.8); Platelet Count 242 K/mm3 (142-424); Red Blood Count 3.57 M/mm3 (4.60-6.20); Red Cell Distribution Width 18.5 % (11.5-17.5)
[2023-05-08] MEDS: 0.9 % SODIUM CHLORIDE 100 ML 999 ML IV (10:54)
--- NOTE | 2023-05-08 10:59 | PC.NURSE ---
1055-PT TOOK COMPAZINE 10MG PO FROM OWN MEDS AROUND 1 HR AGO SO HE REFUSED COMPAZINE 10MG PREMED.
[2023-05-08] MEDS: SODIUM CHLORIDE 0.9% IV ×2 (11:26→12:42)
[2023-05-08] MEDS: CARBOPLATIN IV (11:26)
[2023-05-08] MEDS: PEMBROLIZUMAB 200 MG in 0.9 % SODIUM CHLORIDE 50 ML 116 MG IV (12:05)
[2023-05-08] MEDS: PEMETREXED DISODIUM IV (12:42)
== END 2023-05-08 13:20 | disposition home or self-care (01) ==
LOC: INF 10:10
PROVIDERS: Visit Provider Internal Medicine Medical Oncology
DX: C34.90 Malignant neoplasm of unspecified part of unspecified bronchus or lung (principal); C34.91 Malignant neoplasm of unspecified part of right bronchus or lung; R06.09 Other forms of dyspnea; Z79.899 Other long term (current) drug therapy; Z72.0 Tobacco use
CPT/HCPCS: 85025; 96411; 96413; 96417; J9045; J9271; J9305

== ENCOUNTER 2023-05-29 10:43 | Outpatient (CLI) | payer MEDICARE, SELFPAY ==
[2023-05-29 10:45] VITALS: BMI 30.1
[2023-05-29 11:28] LABS: Basophils % 0.5 % (0.1-2.0); Eosinophils # 0.1 K/mm3 (0.0-0.4); Eosinophils % 0.9 % (0.1-12.0); Hematocrit 34.5 % (42.0-52.0); Hemoglobin 11.6 g/dL (14.1-18.0); Lymphocytes # 1.3 K/mm3 (0.7-4.5); Lymphocytes % 18.3 % (10-50); Mean Corpuscular HGB Conc 33.7 g/dL (31.8-35.4); Mean Corpuscular Hemoglobin 35.2 pg (27.0-31.2); Mean Corpuscular Volume 104.4 fl (80-94); Mean Platelet Volume 8.5 fl (7.4-10.4); Monocytes # 0.5 K/mm3 (0.1-1.0); Monocytes % 7.4 % (1.7-9.3); Neutrophils # 5.3 K/mm3 (1.8-7.8); Neutrophils % 72.9 % (37.0-80.0); Platelet Count 200 K/mm3 (142-424); Red Cell Distribution Width 18.5 % (11.5-17.5); White Blood Count 7.2 K/mm3 (4.8-10.8)
[2023-05-29 11:32] LABS: Chloride 105 mmol/L (98-107); Sodium 136 mmol/L (136-145)
[2023-05-29 11:33] LABS: Potassium 4.1 mmoL/L (3.5-5.1)
[2023-05-29 11:35] LABS: Alanine Aminotransferase 34 U/L (12-78); Albumin Level 3.9 g/dl (3.5-5.0); Albumin/Globulin Ratio 1.4 (1.1-1.8); Alkaline Phosphatase 53 U/L (38-126); Anion Gap 8.1 mEq/L (5-15); Aspartate Amino Transferase 35 U/L (17-59); Bilirubin,Total 0.3 mg/dl (0.2-1.3); Blood Urea Nitrogen 33 mg/dl (9-20); Carbon Dioxide 27 mmol/L (22.0-30.0); Creatinine Clearance Estimated 92 mL/min (50-200); Estimated Glomerular Filt Rate 75 ml/min (>60); GFR (African American) 90 ML/MIN (>60); Globulin 2.8 g/dL (1.3-3.2); Total Protein,Serum 6.7 g/dl (6.3-8.2)
[2023-05-29 11:36] LABS: Calcium 9.4 mg/dl (8.4-10.2); Glucose 120 mg/dl (74-100)
[2023-05-29 12:00] VITALS: BP 159/81; PULSE 59; RESP 18; TEMP 36.4; O2SAT 97
[2023-05-29] MEDS: 0.9 % SODIUM CHLORIDE 100 ML 25 ML IV (12:01)
[2023-05-29] MEDS: SODIUM CHLORIDE 0.9% 10ML FLUSH SYRINGE 10 ML IV (12:16)
[2023-05-29 12:50] VITALS: BP 133/68; PULSE 60; RESP 18; O2SAT 97
[2023-05-29] MEDS: PEMBROLIZUMAB 200 MG in 0.9 % SODIUM CHLORIDE 50 ML 116 MG IV (12:50)
[2023-05-29 13:07] LABS: Thyroid Stimulating Hormone 1.05 uIU/mL (0.465-4.68)
[2023-05-29 13:38] VITALS: BP 140/68; PULSE 62; RESP 18; O2SAT 97
[2023-05-29] MEDS: PEMETREXED DISODIUM IV (13:38)
[2023-05-29] MEDS: SODIUM CHLORIDE 0.9% IV (13:38)
[2023-05-29 14:08] VITALS: BP 142/75; PULSE 67; RESP 18; O2SAT 97
[2023-05-30 13:37] LABS: Adrenocorticotropic Hormone <1.5 pg/mL (7.2-63.3)
== END 2023-05-29 14:10 | disposition home or self-care (01) ==
LOC: INF 10:44
PROVIDERS: PCP Family Medicine; Visit Provider Internal Medicine Medical Oncology
DX: C34.90 Malignant neoplasm of unspecified part of unspecified bronchus or lung (principal); Z79.899 Other long term (current) drug therapy
CPT/HCPCS: 80053; 82024; 82533; 84443; 85025; 96411; 96413; J9271; J9305

== ENCOUNTER 2023-06-19 10:11 | Outpatient (CLI) | payer MEDICARE, SELFPAY ==
[2023-06-19 10:24] VITALS: BMI 29.6
[2023-06-19 10:50] LABS: Chloride 106 mmol/L (98-107); Potassium 4.3 mmoL/L (3.5-5.1); Sodium 139 mmol/L (136-145)
[2023-06-19 10:51] LABS: Basophils # 0.1 K/mm3 (0-0.2); Basophils % 0.8 % (0.1-2.0); Eosinophils # 0.1 K/mm3 (0.0-0.4); Eosinophils % 0.6 % (0.1-12.0); Hematocrit 34.4 % (42.0-52.0); Hemoglobin 11.2 g/dL (14.1-18.0); Lymphocytes % 9.6 % (10-50); Mean Corpuscular HGB Conc 32.6 g/dL (31.8-35.4); Mean Corpuscular Hemoglobin 34.6 pg (27.0-31.2); Mean Corpuscular Volume 106.1 fl (80-94); Mean Platelet Volume 8.1 fl (7.4-10.4); Monocytes # 0.4 K/mm3 (0.1-1.0); Monocytes % 3.7 % (1.7-9.3); Neutrophils # 8.5 K/mm3 (1.8-7.8); Neutrophils % 85.3 % (37.0-80.0); Platelet Count 335 K/mm3 (142-424); Red Blood Count 3.24 M/mm3 (4.60-6.20); Red Cell Distribution Width 17.3 % (11.5-17.5); White Blood Count 9.9 K/mm3 (4.8-10.8)
[2023-06-19 10:53] LABS: Alanine Aminotransferase 27 U/L (12-78); Albumin Level 4.1 g/dl (3.5-5.0); Albumin/Globulin Ratio 1.2 (1.1-1.8); Alkaline Phosphatase 61 U/L (38-126); Anion Gap 8.3 mEq/L (5-15); Aspartate Amino Transferase 29 U/L (17-59); Bilirubin,Total 0.4 mg/dl (0.2-1.3); Blood Urea Nitrogen 29 mg/dl (9-20); Carbon Dioxide 29 mmol/L (22.0-30.0); Creatinine Clearance Estimated 91 mL/min (50-200); Estimated Glomerular Filt Rate 84 ml/min (>60); GFR (African American) 102 ML/MIN (>60); Globulin 3.3 g/dL (1.3-3.2); Total Protein,Serum 7.4 g/dl (6.3-8.2)
[2023-06-19 10:54] LABS: Calcium 9.6 mg/dl (8.4-10.2); Glucose 105 mg/dl (74-100)
[2023-06-19 10:59] LABS: MANUAL DIFFERENTIAL MANUAL DIFFERENTIAL (MANUAL DIFF)
[2023-06-19 11:03] VITALS: BP 137/72; PULSE 68; RESP 18; TEMP 36.6; O2SAT 98
[2023-06-19] MEDS: VITAMIN B-12 1,000 MCG 1ML VIAL 1000 MCG (11:03)
[2023-06-19] MEDS: 0.9 % SODIUM CHLORIDE 100 ML IV (11:03)
[2023-06-19] MEDS: PROCHLORPERAZINE 10MG TABLET 10 MG PO (11:03)
[2023-06-19 11:37] VITALS: BP 145/74; PULSE 64; RESP 18; O2SAT 98
[2023-06-19] MEDS: PEMBROLIZUMAB 200 MG in 0.9 % SODIUM CHLORIDE 50 ML 116 MG IV (11:37)
[2023-06-19 12:20] VITALS: BP 131/69; PULSE 63; RESP 18; O2SAT 98
[2023-06-19] MEDS: SODIUM CHLORIDE 0.9% IV (12:20)
[2023-06-19] MEDS: PEMETREXED DISODIUM IV (12:20)
[2023-06-19 12:34] LABS: Lymphocytes % 15 % (10-50); Macrocytosis 2+; Monocytes % 3 % (2-9); Neutrophils % 82 % (42-76); Platelet Estimate Normal; Total Cells Counted 100
[2023-06-19 12:50] VITALS: BP 133/70; PULSE 67; RESP 18; O2SAT 98
[2023-06-19] MEDS: SODIUM CHLORIDE 0.9% 10ML FLUSH SYRINGE 10 ML IV (14:54)
== END 2023-06-19 12:55 | disposition home or self-care (01) ==
LOC: INF 10:12
PROVIDERS: PCP Family Medicine; Visit Provider Internal Medicine Medical Oncology
DX: C34.90 Malignant neoplasm of unspecified part of unspecified bronchus or lung (principal); Z79.899 Other long term (current) drug therapy; F17.210 Nicotine dependence, cigarettes, uncomplicated
CPT/HCPCS: 80053; 85007; 85025; 96411; 96413; J9271; J9305

== ENCOUNTER 2023-06-25 10:26 | Outpatient (CLI) | payer MEDICARE, SELFPAY ==
[2023-06-25 10:32] VITALS: BMI 29.6
[2023-06-25 10:50] LABS: Basophils # 0.1 K/mm3 (0-0.2); Basophils % 1.2 % (0.1-2.0); Eosinophils # 0.1 K/mm3 (0.0-0.4); Hematocrit 32.4 % (42.0-52.0); Hemoglobin 10.7 g/dL (14.1-18.0); Lymphocytes % 17.2 % (10-50); Mean Platelet Volume 8.2 fl (7.4-10.4); Monocytes # 0.1 K/mm3 (0.1-1.0); Monocytes % 2.2 % (1.7-9.3); Neutrophils # 4.5 K/mm3 (1.8-7.8); Neutrophils % 78.4 % (37.0-80.0); Platelet Count 246 K/mm3 (142-424); Red Blood Count 3.15 M/mm3 (4.60-6.20); Red Cell Distribution Width 16.3 % (11.5-17.5); White Blood Count 5.8 K/mm3 (4.8-10.8)
== END 2023-06-25 10:45 | disposition home or self-care (01) ==
LOC: INF 10:28
PROVIDERS: PCP Family Medicine; Visit Provider Internal Medicine Medical Oncology
DX: D49.1 Neoplasm of unspecified behavior of respiratory system (principal)
CPT/HCPCS: 36415; 85025

== ENCOUNTER 2023-07-10 10:08 | Outpatient (CLI) | payer MEDICARE, SELFPAY ==
[2023-07-10 10:13] VITALS: BMI 29.6
[2023-07-10 10:34] LABS: Basophils # 0.2 K/mm3 (0-0.2); Basophils % 1.9 % (0.1-2.0); Eosinophils # 0.2 K/mm3 (0.0-0.4); Eosinophils % 1.9 % (0.1-12.0); Hematocrit 36.3 % (42.0-52.0); Hemoglobin 11.7 g/dL (14.1-18.0); Lymphocytes # 1.5 K/mm3 (0.7-4.5); Lymphocytes % 18.1 % (10-50); Mean Corpuscular HGB Conc 32.1 g/dL (31.8-35.4); Mean Corpuscular Hemoglobin 34.7 pg (27.0-31.2); Mean Corpuscular Volume 108.4 fl (80-94); Mean Platelet Volume 8.1 fl (7.4-10.4); Monocytes # 0.5 K/mm3 (0.1-1.0); Monocytes % 6.4 % (1.7-9.3); Neutrophils # 5.7 K/mm3 (1.8-7.8); Neutrophils % 71.6 % (37.0-80.0); Platelet Count 365 K/mm3 (142-424); Red Blood Count 3.35 M/mm3 (4.60-6.20); Red Cell Distribution Width 16.9 % (11.5-17.5)
[2023-07-10 10:45] LABS: Alanine Aminotransferase 27 U/L (12-78); Albumin Level 4.4 g/dl (3.5-5.0); Albumin/Globulin Ratio 1.1 (1.1-1.8); Alkaline Phosphatase 71 U/L (38-126); Anion Gap 17.2 mEq/L (5-15); Aspartate Amino Transferase 36 U/L (17-59); Bilirubin,Total 0.4 mg/dl (0.2-1.3); Blood Urea Nitrogen 23 mg/dl (9-20); Calcium 9.5 mg/dl (8.4-10.2); Carbon Dioxide 21 mmol/L (22.0-30.0); Chloride 105 mmol/L (98-107); Creatinine Clearance Estimated 83 mL/min (50-200); Estimated Glomerular Filt Rate 67 ml/min (>60); GFR (African American) 81 ML/MIN (>60); Globulin 3.9 g/dL (1.3-3.2); Glucose 125 mg/dl (74-100); Potassium 3.2 mmoL/L (3.5-5.1); Sodium 140 mmol/L (136-145); Total Protein,Serum 8.3 g/dl (6.3-8.2)
[2023-07-10] MEDS: PROCHLORPERAZINE 10MG TABLET 10 MG PO (11:05)
[2023-07-10 11:16] LABS: Thyroid Stimulating Hormone 1.69 uIU/mL (0.465-4.68)
[2023-07-10] MEDS: PEMBROLIZUMAB 200 MG in 0.9 % SODIUM CHLORIDE 50 ML 100 MG IV (11:35)
[2023-07-10] MEDS: 0.9 % SODIUM CHLORIDE 50 ML 100 ML IV (11:35)
[2023-07-10 11:40] VITALS: BP 118/48; PULSE 63; RESP 18; TEMP 36.6; O2SAT 100
[2023-07-10] MEDS: PEMETREXED DISODIUM IV (12:16)
[2023-07-10] MEDS: SODIUM CHLORIDE 0.9% IV (12:16)
[2023-07-10 12:20] VITALS: BP 126/68; PULSE 60; RESP 18
[2023-07-10 12:36] VITALS: RESP 18
[2023-07-10 15:02] VITALS: BP 127/73; PULSE 59; RESP 18; O2SAT 100
== END 2023-07-10 12:45 | disposition home or self-care (01) ==
LOC: INF 10:09
PROVIDERS: PCP Family Medicine; Visit Provider Internal Medicine Medical Oncology
DX: C34.90 Malignant neoplasm of unspecified part of unspecified bronchus or lung (principal); C34.91 Malignant neoplasm of unspecified part of right bronchus or lung; Z79.899 Other long term (current) drug therapy; F17.210 Nicotine dependence, cigarettes, uncomplicated
CPT/HCPCS: 80053; 82024; 82533; 84443; 85025; 96411; 96413; J9271; J9305

== ENCOUNTER 2023-07-28 08:49 | Outpatient (CLI) | payer MEDICARE, SELFPAY ==
--- NOTE | 2023-07-28 08:56 | CT_ITS ---
FINAL REPORT TECHNIQUE: After the administration of intravenous contrast, axial images were obtained through the abdomen and pelvis by computed tomography. This study was performed with technique to keep radiation doses as low as reasonably achievable, (ALARA). Individualized dose reduction techniques using automated exposure control or adjustment of the MA and/or KV according to the patient's size were employed. CLINICAL HISTORY: LUNG CANCER FINDINGS: Abdomen: The liver is normal in size and attenuation. There is mild, nonspecific gallbladder wall thickening. The spleen is unremarkable. The adrenals are normal. The pancreas is unremarkable. The kidneys enhance appropriately. The aorta is normal in caliber. There is a small amount of ascites with worsening stranding of the omentum consistent with omental metastatic disease. Multiple fluid-filled bowel loops are seen in a nonspecific pattern. Pelvis: The appendix is not identified. The urinary bladder is unremarkable. There is a small amount of pelvic ascites. IMPRESSION: Small amount of abdominal and pelvic ascites. Worsening omental stranding consistent with omental metastatic disease. Reviewed, Interpreted and Dictated by Eduard Nye III, MD Transcribed by Shawna Bello Authenticated and [facility]
--- NOTE | 2023-07-28 08:57 | CT_ITS ---
FINAL REPORT CLINICAL HISTORY: LUNG CANCER COMPARISON: 05/06/2023 FINDINGS: Axial CT images of the chest were obtained with contrast. Coronal reformatted images were also obtained. This study was performed with techniques to keep radiation doses as low as reasonably achievable, (ALARA). Individualized dose reduction techniques using automated exposure control or adjustment of mA and/or KV according to the patient''''s size were employed. There is an improved right lower lobe paratracheal mass measuring 35 x 22 mm, previously measured 61 x 46 mm. Subcarinal mass measures 39 x 18 mm, previously measured 65 x 33 mm. Right hilar mass measures 47 x 34 mm, previously measured 18 x 62 mm. Multiple other smaller lymph nodes are seen. Window imaging, a 7 mm right upper lobe pulmonary nodule is seen which is stable from prior exam. There is moderate emphysema. There is a small right pleural effusion. No new mass or nodule is identified. There is probable chronic occlusion of the right brachiocephalic vein. IMPRESSION: Improved adenopathy as above. Probable occlusion of the right brachiocephalic vein. 7 mm stable right upper lobe nodule and new, small right pleural effusion. Reviewed, Interpreted and Dictated by Eduard Nye III, MD Transcribed by Shawna Bello Authenticated and [facility]
--- NOTE | 2023-07-28 08:58 | CT_ITS ---
FINAL REPORT TECHNIQUE: Axial images through the brain were performed after the administration of IV contrast. Coronal reconstructions were submitted. This study was performed with techniques to keep radiation doses as low as reasonably achievable (ALARA). Individualized dose reduction techniques using automated exposure control or adjustment of mA and/or kV according to the patient's size were employed. CLINICAL HISTORY: LUNG CANCER COMPARISON: 05/06/2023 FINDINGS: Areas of bilateral encephalomalacia are again seen. There is a persistent left occipital mass measuring 20 mm, was 22 mm. No new mass or abnormal contrast-enhancement identified. The ventricular size is within normal limits. There is no evidence of shift of the midline structures. No abnormal extra axial fluid collection is identified. There is mucosal thickening of multiple sinuses. There is opacification of multiple mastoid air cells. No skull abnormality is seen on the bone window images. IMPRESSION: Persistent left occipital mass as above. Reviewed, Interpreted and Dictated by Eduard Nye III, MD Transcribed by Guerda Fulton Authenticated and [facility]
[2023-07-28] MEDS: SODIUM CHLORIDE 0.9% 10ML SYR (RAD ONLY) 10 ML IV (10:04)
[2023-07-28] MEDS: IOPAMIDOL-370 (76%);100ML BOTTLE 50 ML IV (10:04)
[2023-07-28] MEDS: IOPAMIDOL-300 (61%) 100ML VIAL 100 ML IV (10:06)
== END 2023-07-28 23:59 | disposition home or self-care (01) ==
LOC: RAD 08:50
PROVIDERS: PCP Family Medicine; Visit Provider Internal Medicine Medical Oncology
DX: C34.90 Malignant neoplasm of unspecified part of unspecified bronchus or lung (principal)
CPT/HCPCS: 70460; 71260; 74177; Q9967

== ENCOUNTER 2023-07-31 08:54 | Outpatient (CLI) | payer MEDICARE, SELFPAY ==
[2023-07-31 09:02] VITALS: BMI 27.9
[2023-07-31 09:55] LABS: Basophils # 0.1 K/mm3 (0-0.2); Basophils % 0.8 % (0.1-2.0); Eosinophils # 0.2 K/mm3 (0.0-0.4); Hematocrit 31.7 % (42.0-52.0); Hemoglobin 10.7 g/dL (14.1-18.0); Lymphocytes % 10.3 % (10-50); Mean Corpuscular HGB Conc 33.9 g/dL (31.8-35.4); Mean Corpuscular Hemoglobin 37.4 pg (27.0-31.2); Mean Corpuscular Volume 110.4 fl (80-94); Mean Platelet Volume 8.7 fl (7.4-10.4); Monocytes # 0.4 K/mm3 (0.1-1.0); Monocytes % 4.3 % (1.7-9.3); Neutrophils # 7.7 K/mm3 (1.8-7.8); Neutrophils % 82.5 % (37.0-80.0); Platelet Count 389 K/mm3 (142-424); Red Blood Count 2.87 M/mm3 (4.60-6.20); Red Cell Distribution Width 16.9 % (11.5-17.5); White Blood Count 9.4 K/mm3 (4.8-10.8)
[2023-07-31 10:10] LABS: Alanine Aminotransferase 33 U/L (12-78); Albumin/Globulin Ratio 1.3 (1.1-1.8); Alkaline Phosphatase 56 U/L (38-126); Aspartate Amino Transferase 44 U/L (17-59); Bilirubin,Total 0.2 mg/dl (0.2-1.3); Blood Urea Nitrogen 26 mg/dl (9-20); Carbon Dioxide 27 mmol/L (22.0-30.0); Chloride 104 mmol/L (98-107); Creatinine Clearance Estimated 86 mL/min (50-200); Estimated Glomerular Filt Rate 84 ml/min (>60); GFR (African American) 102 ML/MIN (>60); Globulin 3.2 g/dL (1.3-3.2); Glucose 105 mg/dl (74-100); Sodium 139 mmol/L (136-145); Total Protein,Serum 7.2 g/dl (6.3-8.2)
[2023-07-31 11:06] VITALS: BP 129/72; PULSE 74; RESP 18; TEMP 36.6; O2SAT 98
[2023-07-31] MEDS: VITAMIN B-12 1,000 MCG 1ML VIAL 1000 MCG (11:06)
[2023-07-31] MEDS: PROCHLORPERAZINE 10MG TABLET 10 MG PO (11:06)
[2023-07-31] MEDS: SODIUM CHLORIDE 0.9% 100ML BAG 100 ML IV (11:07)
[2023-07-31 11:31] VITALS: BP 134/74; PULSE 62; RESP 18; O2SAT 98
[2023-07-31] MEDS: PEMBROLIZUMAB 200 MG in 0.9 % SODIUM CHLORIDE 50 ML 116 MG IV (11:31)
[2023-07-31 12:01] VITALS: BP 147/81; PULSE 70; RESP 18; O2SAT 97
[2023-07-31 12:16] VITALS: BP 139/76; PULSE 65; RESP 18; O2SAT 98
[2023-07-31] MEDS: SODIUM CHLORIDE 0.9% IV (12:16)
[2023-07-31] MEDS: PEMETREXED DISODIUM IV (12:16)
[2023-07-31] MEDS: SODIUM CHLORIDE 0.9% 10ML FLUSH SYRINGE 10 ML IV (12:21)
[2023-07-31 12:40] VITALS: BP 131/77; PULSE 69; RESP 18; O2SAT 98
== END 2023-07-31 12:45 | disposition home or self-care (01) ==
LOC: INF 08:59
PROVIDERS: PCP Family Medicine; Visit Provider Internal Medicine Medical Oncology
DX: C34.90 Malignant neoplasm of unspecified part of unspecified bronchus or lung (principal); C34.91 Malignant neoplasm of unspecified part of right bronchus or lung; R06.09 Other forms of dyspnea; Z79.899 Other long term (current) drug therapy; Z72.0 Tobacco use
CPT/HCPCS: 80053; 85025; 96411; 96413; J3420; J9271; J9305; Q0164

== ENCOUNTER 2023-08-20 09:06 | Outpatient (CLI) | payer MEDICARE, SELFPAY ==
[2023-08-20 09:13] VITALS: BMI 29.3
[2023-08-20 09:31] LABS: Basophils # 0.1 K/mm3 (0-0.2); Basophils % 0.8 % (0.1-2.0); Eosinophils # 0.1 K/mm3 (0.0-0.4); Eosinophils % 0.6 % (0.1-12.0); Hematocrit 34.3 % (42.0-52.0); Lymphocytes # 0.7 K/mm3 (0.7-4.5); Mean Corpuscular Hemoglobin 34.7 pg (27.0-31.2); Mean Corpuscular Volume 108.6 fl (80-94); Mean Platelet Volume 9.2 fl (7.4-10.4); Monocytes # 0.4 K/mm3 (0.1-1.0); Monocytes % 3.6 % (1.7-9.3); Neutrophils # 8.7 K/mm3 (1.8-7.8); Platelet Count 329 K/mm3 (142-424); Red Blood Count 3.16 M/mm3 (4.60-6.20); Red Cell Distribution Width 15.6 % (11.5-17.5); White Blood Count 9.9 K/mm3 (4.8-10.8)
[2023-08-20 09:34] LABS: Chloride 106 mmol/L (98-107); Potassium 4.2 mmoL/L (3.5-5.1)
[2023-08-20 09:36] LABS: Alanine Aminotransferase 30 U/L (12-78); Blood Urea Nitrogen 16 mg/dl (9-20); Creatinine Clearance Estimated 90 mL/min (50-200); Estimated Glomerular Filt Rate 75 ml/min (>60); GFR (African American) 90 ML/MIN (>60)
[2023-08-20 09:37] LABS: Albumin Level 4.1 g/dl (3.5-5.0); Albumin/Globulin Ratio 1.1 (1.1-1.8); Alkaline Phosphatase 77 U/L (38-126); Aspartate Amino Transferase 40 U/L (17-59); Bilirubin,Total 0.2 mg/dl (0.2-1.3); Calcium 9.1 mg/dl (8.4-10.2); Carbon Dioxide 26 mmol/L (22.0-30.0); Globulin 3.8 g/dL (1.3-3.2); Glucose 134 mg/dl (74-100); Total Protein,Serum 7.9 g/dl (6.3-8.2)
[2023-08-20 09:41] LABS: MANUAL DIFFERENTIAL MANUAL DIFFERENTIAL (MANUAL DIFF)
[2023-08-20 10:08] LABS: Thyroid Stimulating Hormone 1.27 uIU/mL (0.465-4.68)
[2023-08-20] MEDS: PROCHLORPERAZINE 10MG TABLET 10 MG PO (10:29)
[2023-08-20 10:36] LABS: Lymphocytes % 11 % (10-50); Macrocytosis 2+; Monocytes % 3 % (2-9); Neutrophils % 86 % (42-76); Platelet Estimate Normal; Total Cells Counted 100
[2023-08-20] MEDS: 0.9 % SODIUM CHLORIDE 50 ML 100 ML IV (10:59)
[2023-08-20] MEDS: PEMBROLIZUMAB 200 MG in 0.9 % SODIUM CHLORIDE 50 ML 116 MG IV (10:59)
[2023-08-20 11:04] VITALS: BP 129/72; PULSE 69; RESP 18; TEMP 36.7; O2SAT 96
[2023-08-20 11:06] LABS: Anion Gap 9.2 mEq/L (5-15); Sodium 137 mmol/L (136-145)
[2023-08-20] MEDS: PEMETREXED DISODIUM IV (11:46)
[2023-08-20] MEDS: SODIUM CHLORIDE 0.9% IV (11:46)
[2023-08-20 11:48] VITALS: RESP 18
[2023-08-20 12:08] VITALS: RESP 18
[2023-08-20 12:13] VITALS: BP 130/74; PULSE 74; RESP 18; O2SAT 96
[2023-08-22 18:10] LABS: Adrenocorticotropic Hormone 3.4 pg/mL (7.2-63.3)
== END 2023-08-20 12:13 | disposition home or self-care (01) ==
LOC: INF 09:07
PROVIDERS: PCP Family Medicine; Visit Provider Internal Medicine Medical Oncology
DX: C34.90 Malignant neoplasm of unspecified part of unspecified bronchus or lung (principal); Z79.620 Long term (current) use of immunosuppressive biologic; Z79.899 Other long term (current) drug therapy; F17.210 Nicotine dependence, cigarettes, uncomplicated; Z51.11 Encounter for antineoplastic chemotherapy
CPT/HCPCS: 80053; 82024; 82533; 84443; 85007; 85025; 85027; 96413; 96417; J9271; J9305; Q0164

== ENCOUNTER 2023-09-10 09:22 | Outpatient (CLI) | payer MEDICARE, SELFPAY ==
[2023-09-10 09:27] VITALS: BMI 28.3
[2023-09-10 09:59] LABS: Basophils # 0.1 K/mm3 (0-0.2); Basophils % 1.1 % (0.1-2.0); Eosinophils # 0.3 K/mm3 (0.0-0.4); Eosinophils % 3.7 % (0.1-12.0); Hematocrit 32.2 % (42.0-52.0); Hemoglobin 10.5 g/dL (14.1-18.0); Lymphocytes # 1.5 K/mm3 (0.7-4.5); Lymphocytes % 17.3 % (10-50); Mean Corpuscular HGB Conc 32.5 g/dL (31.8-35.4); Mean Corpuscular Hemoglobin 34.6 pg (27.0-31.2); Mean Corpuscular Volume 106.3 fl (80-94); Mean Platelet Volume 8.6 fl (7.4-10.4); Monocytes # 0.7 K/mm3 (0.1-1.0); Neutrophils % 69.9 % (37.0-80.0); Platelet Count 432 K/mm3 (142-424); Red Blood Count 3.03 M/mm3 (4.60-6.20); Red Cell Distribution Width 16.7 % (11.5-17.5); White Blood Count 8.6 K/mm3 (4.8-10.8)
[2023-09-10 10:25] LABS: Alanine Aminotransferase 18 U/L (12-78); Albumin Level 3.7 g/dl (3.5-5.0); Alkaline Phosphatase 69 U/L (38-126); Aspartate Amino Transferase 37 U/L (17-59); Bilirubin,Total 0.2 mg/dl (0.2-1.3); Blood Urea Nitrogen 18 mg/dl (9-20); Carbon Dioxide 26 mmol/L (22.0-30.0); Chloride 105 mmol/L (98-107); Creatinine Clearance Estimated 79 mL/min (50-200); Estimated Glomerular Filt Rate 67 ml/min (>60); GFR (African American) 81 ML/MIN (>60); Globulin 3.7 g/dL (1.3-3.2); Glucose 88 mg/dl (74-100); Potassium 3.9 mmoL/L (3.5-5.1); Total Protein,Serum 7.4 g/dl (6.3-8.2)
[2023-09-10 10:48] LABS: Anion Gap 9.9 mEq/L (5-15); Sodium 137 mmol/L (136-145)
[2023-09-10] MEDS: PROCHLORPERAZINE 10MG TABLET 10 MG PO (10:55)
[2023-09-10] MEDS: 0.9 % SODIUM CHLORIDE 100 ML 200 ML IV (11:02)
[2023-09-10] MEDS: PEMBROLIZUMAB 200 MG in 0.9 % SODIUM CHLORIDE 50 ML 116 MG IV (11:31)
[2023-09-10 11:35] VITALS: BP 105/67; PULSE 60; RESP 16; TEMP 35.8; O2SAT 92
[2023-09-10 11:50] VITALS: BP 117/65; PULSE 57; RESP 16
[2023-09-10 12:05] VITALS: BP 122/71; PULSE 69; RESP 16
[2023-09-10] MEDS: PEMETREXED DISODIUM IV (12:12)
[2023-09-10] MEDS: SODIUM CHLORIDE 0.9% IV (12:12)
[2023-09-10 12:20] VITALS: BP 128/51; PULSE 62; RESP 16
[2023-09-10 12:30] VITALS: BP 106/38; PULSE 63; RESP 16
== END 2023-09-10 12:40 | disposition home or self-care (01) ==
LOC: INF 09:23
PROVIDERS: PCP Family Medicine; Visit Provider Internal Medicine Medical Oncology
DX: C34.90 Malignant neoplasm of unspecified part of unspecified bronchus or lung (principal); Z79.620 Long term (current) use of immunosuppressive biologic; Z79.899 Other long term (current) drug therapy; F17.210 Nicotine dependence, cigarettes, uncomplicated; Z51.11 Encounter for antineoplastic chemotherapy
CPT/HCPCS: 36415; 80053; 85025; 96411; 96413; 96417; J9271; J9305; Q0164

== ENCOUNTER 2023-10-01 08:58 | Outpatient (CLI) | payer MEDICARE, OTHER, SELFPAY ==
[2023-10-01 09:05] VITALS: BMI 27.8
[2023-10-01 10:13] LABS: Basophils # 0.1 K/mm3 (0-0.2); Basophils % 1.1 % (0.1-2.0); Eosinophils # 0.2 K/mm3 (0.0-0.4); Eosinophils % 3.6 % (0.1-12.0); Hematocrit 31.4 % (42.0-52.0); Hemoglobin 9.8 g/dL (14.1-18.0); Lymphocytes # 1.2 K/mm3 (0.7-4.5); Lymphocytes % 22.3 % (10-50); Mean Corpuscular HGB Conc 31.4 g/dL (31.8-35.4); Mean Corpuscular Hemoglobin 34.8 pg (27.0-31.2); Mean Platelet Volume 8.5 fl (7.4-10.4); Monocytes # 0.5 K/mm3 (0.1-1.0); Monocytes % 8.8 % (1.7-9.3); Neutrophils # 3.4 K/mm3 (1.8-7.8); Neutrophils % 64.3 % (37.0-80.0); Platelet Count 493 K/mm3 (142-424); Red Blood Count 2.83 M/mm3 (4.60-6.20); Red Cell Distribution Width 17.8 % (11.5-17.5); White Blood Count 5.2 K/mm3 (4.8-10.8)
[2023-10-01 10:40] LABS: Alanine Aminotransferase 27 U/L (12-78); Alkaline Phosphatase 55 U/L (38-126); Anion Gap 10.3 mEq/L (5-15); Aspartate Amino Transferase 59 U/L (17-59); Bilirubin,Total 0.6 mg/dl (0.2-1.3); Blood Urea Nitrogen 22 mg/dl (9-20); Calcium 8.6 mg/dl (8.4-10.2); Carbon Dioxide 20 mmol/L (22.0-30.0); Chloride 109 mmol/L (98-107); Creatinine Clearance Estimated 85 mL/min (50-200); Estimated Glomerular Filt Rate 97 ml/min (>60); GFR (African American) 117 ML/MIN (>60); Globulin 4.1 g/dL (1.3-3.2); Glucose 107 mg/dl (74-100); Potassium 4.3 mmoL/L (3.5-5.1); Sodium 135 mmol/L (136-145); Total Protein,Serum 8.1 g/dl (6.3-8.2)
[2023-10-01 11:10] LABS: Thyroid Stimulating Hormone 1.86 uIU/mL (0.465-4.68)
[2023-10-01 11:23] VITALS: BP 123/69; PULSE 61; RESP 20; TEMP 36.2; O2SAT 98
[2023-10-01 11:54] VITALS: BP 118/66; PULSE 66; RESP 20; O2SAT 98
[2023-10-01 12:46] VITALS: BP 111/64; PULSE 72; RESP 20; O2SAT 97
[2023-10-01 13:16] VITALS: BP 118/78; PULSE 68; RESP 20; O2SAT 98
[2023-10-02 14:42] LABS: Adrenocorticotropic Hormone 8.7 pg/mL (7.2-63.3)
== END 2023-10-01 13:17 | disposition home or self-care (01) ==
LOC: INF 08:59
PROVIDERS: PCP Family Medicine; Visit Provider Internal Medicine Medical Oncology
DX: Z51.11 Encounter for antineoplastic chemotherapy; C34.31 Malignant neoplasm of lower lobe, right bronchus or lung; Z79.899 Other long term (current) drug therapy
CPT/HCPCS: 80053; 82024; 82533; 84443; 85025; 96372; 96411; 96413; J3420; J9271; J9305; Q0164

== ENCOUNTER 2023-10-22 08:37 | Outpatient (CLI) | payer MEDICARE, OTHER, SELFPAY ==
[2023-10-22 08:40] VITALS: BMI 25.9
[2023-10-22 08:56] LABS: Basophils # 0.1 K/mm3 (0-0.2); Basophils % 0.8 % (0.1-2.0); Eosinophils # 0.1 K/mm3 (0.0-0.4); Eosinophils % 1.8 % (0.1-12.0); Hematocrit 33.5 % (42.0-52.0); Hemoglobin 10.7 g/dL (14.1-18.0); Lymphocytes # 1.6 K/mm3 (0.7-4.5); Lymphocytes % 22.6 % (10-50); Mean Corpuscular HGB Conc 32.1 g/dL (31.8-35.4); Mean Corpuscular Hemoglobin 34.6 pg (27.0-31.2); Mean Corpuscular Volume 107.6 fl (80-94); Mean Platelet Volume 8.6 fl (7.4-10.4); Monocytes # 0.7 K/mm3 (0.1-1.0); Monocytes % 9.8 % (1.7-9.3); Neutrophils # 4.5 K/mm3 (1.8-7.8); Platelet Count 512 K/mm3 (142-424); Red Blood Count 3.11 M/mm3 (4.60-6.20); Red Cell Distribution Width 18.1 % (11.5-17.5)
[2023-10-22 09:04] LABS: Albumin Level 4.2 g/dl (3.5-5.0); Chloride 98 mmol/L (98-107); Potassium 3.1 mmoL/L (3.5-5.1); Sodium 136 mmol/L (136-145)
[2023-10-22 09:07] LABS: Alanine Aminotransferase 27 U/L (12-78); Albumin/Globulin Ratio 1.1 (1.1-1.8); Alkaline Phosphatase 88 U/L (38-126); Anion Gap 11.1 mEq/L (5-15); Aspartate Amino Transferase 40 U/L (17-59); Bilirubin,Total 0.4 mg/dl (0.2-1.3); Blood Urea Nitrogen 19 mg/dl (9-20); Carbon Dioxide 30 mmol/L (22.0-30.0); Creatinine Clearance Estimated 75 mL/min (50-200); Estimated Glomerular Filt Rate 67 ml/min (>60); GFR (African American) 81 ML/MIN (>60); Total Protein,Serum 8.2 g/dl (6.3-8.2)
[2023-10-22 09:08] LABS: Calcium 8.9 mg/dl (8.4-10.2); Glucose 126 mg/dl (74-100)
[2023-10-22 10:40] VITALS: BP 108/60; PULSE 58; RESP 18; TEMP 36.4; O2SAT 99
[2023-10-22 11:05] VITALS: BP 109/67; PULSE 57; RESP 18; O2SAT 99
[2023-10-22 11:35] VITALS: BP 111/67; PULSE 55; RESP 20; O2SAT 99
[2023-10-22 11:49] VITALS: BP 105/55; PULSE 55; RESP 20; O2SAT 98
[2023-10-22 12:20] VITALS: BP 109/59; PULSE 59; RESP 20; O2SAT 98
== END 2023-10-22 12:30 | disposition home or self-care (01) ==
LOC: INF 08:38
PROVIDERS: PCP Family Medicine; Visit Provider Internal Medicine Medical Oncology
DX: C34.31 Malignant neoplasm of lower lobe, right bronchus or lung; Z51.11 Encounter for antineoplastic chemotherapy; Z79.899 Other long term (current) drug therapy
CPT/HCPCS: 80053; 85025; 96411; 96413; J9271; J9305; Q0164

== ENCOUNTER 2023-10-28 10:50 | Outpatient (CLI) | payer MEDICARE, OTHER, SELFPAY | END 2023-10-28 23:59 | disposition home or self-care (01) | LOC: LAB 10:52 → INF 10:55 | PROVIDERS: PCP Family Medicine; Visit Provider Surgery | DX: D49.1 Neoplasm of unspecified behavior of respiratory system (principal) ==

== ENCOUNTER 2023-10-31 09:55 | Outpatient (CLI) | payer MEDICARE, OTHER, SELFPAY ==
--- NOTE | 2023-10-31 10:11 | ECG_ITS ---
APPROVED REPORT Exam: Resting ECG HR:61 bpm ECG Measurements Heart Rate 61 AXES NH 180 P 83 QRSd 101 QRS 47 QT 420 T 38 QTc 423 Conclusion SINUS RHYTHM POSSIBLE ANTERIOR MYOCARDIAL INFARCTION , PROBABLY OLD [30 ms Q WAVE IN V3/V4, OR R < 0.2 mV IN V4] BORDERLINE ECG UNCONFIRMED REPORT Electronically signed by : Guillermo Watson MD 11/01/2023 08:33:28
== END 2023-10-31 23:59 | disposition home or self-care (01) ==
LOC: PREOP 09:57
PROVIDERS: Visit Provider Surgery
DX: Z01.810 Encounter for preprocedural cardiovascular examination (principal); Z45.2 Encounter for adjustment and management of vascular access device; C34.90 Malignant neoplasm of unspecified part of unspecified bronchus or lung
CPT/HCPCS: 93005

== ENCOUNTER 2023-11-03 08:43 | Day surgery (SDC) | payer MEDICARE, OTHER, SELFPAY ==
[2023-10-31 10:04] VITALS: BMI 26.6
[2023-11-03] VITALS (9 sets, daily range): BP systolic 105–129; BP diastolic 64–74; PULSE 60–80; RESP 16–18; TEMP 36.1–36.8; O2SAT 95–98
--- NOTE | 2023-11-03 09:32 | XR_ITS ---
FINAL REPORT CLINICAL HISTORY: pre-op, port ploacement COMPARISON: 12/02/2022 FINDINGS: A portable view of the chest was obtained. Cardiac and mediastinal silhouettes are within normal limits. There has been interval improvement in the right perihilar opacity. There is no new infiltrate, pleural effusion or pneumothorax. IMPRESSION: Interval improvement right perihilar opacity. Reviewed, Interpreted and Dictated by Sabi Tan MD Transcribed by Courtney Morales Authenticated and [facility]
--- NOTE | 2023-11-03 09:37 | P.PNANES_ITS ---
[facility] Disclaimer: The information contained in this section may have been updated after the patient was seen, as this information can be updated by other users. Medical History Pneumonia Dyspnea on exertion Smoking greater than 30 pack years Mediastinal lymphadenopathy Hilar lymphadenopathy Lung mass Surgical History History of bronchoscopy History of appendectomy History of tonsillectomy History of throat surgery History of surgery on upper extremity Family History Other Diabetes Family history of cancer Hypertension Social History Smoking Status: Current every day smoker tobacco type: cigarettes packs per day: 1 alcohol intake: former substance use type: denies use current occupational status: employed and retired Travel in the last 8 weeks: None [facility] Anesthesia Checklist Patient Identification Patient Identification: Arm Band and Verbal (Name & ) Structural Data Admitted From: Home Planned Operative Procedure/s: Port a cath placement Consent for Planned Operative Procedure(s) Verified: Yes Verified Documents: Surgical Consent and History and Physical NPO Status Verified Time NPO: 00:00 Chart Verification Results Verified: CBC and BMP Additional verifications Anesthesia Reactions: No Hx Blood Transfusions: No Blood Transfusion Reaction: No Airway Assessment Mallampati Score:: Class IV C-Spine Mobility Assessed: Yes TMJ Mobility Assessed: Yes Dentition: Poor Dentition (Missing teeth) Neurological Assessment Level of Consciousness: Awake Hx Seizures: No Numbness or tingling in extremities: No Anesthesia Plan Anesthesia Risk discussed: Yes Anesthesia Plan: Verified ASA Class: III Anesthesia Type: General
[2023-11-03 09:40] LABS: Anion Gap 7.1 mEq/L (5-15); Blood Urea Nitrogen 38 mg/dl (9-20); Calcium 8.9 mg/dl (8.4-10.2); Carbon Dioxide 28 mmol/L (22.0-30.0); Chloride 106 mmol/L (98-107); Creatinine Clearance Estimated 74 mL/min (50-200); Estimated Glomerular Filt Rate 67 ml/min (>60); GFR (African American) 81 ML/MIN (>60); Glucose 99 mg/dl (74-100); Potassium 3.1 mmoL/L (3.5-5.1); Sodium 138 mmol/L (136-145)
[2023-11-03] MEDS: CEFAZOLIN SODIUM 1 GM in 0.9 % SODIUM CHLORIDE 50 ML IV (11:10)
[2023-11-03] MEDS: ROPIVACAINE 0.5% 30ML VIAL 150 MG (11:26)
[2023-11-03] MEDS: SODIUM CHLORIDE 0.9% 20ML VIAL 40 ML IV (11:26)
[2023-11-03] MEDS: LIDOCAINE 1% 20ML MDV 20 ML (11:26)
--- NOTE | 2023-11-03 11:42 | EXP.OP.NOTE ---
Date of procedure: 11/03/23 Pre-op Diagnosis:: Metastatic lung cancer, need for venous access Post-op Diagnosis:: Same Procedure performed:: Attempt at placement of left subclavian venous access port Surgeon:: Eduard Bautista MD SENIOR EDUCATION SPECIALIST:: Mellisa Rodarte Anesthesia: GETA Estimated blood loss (mL): 10 Clinical Note:: Patient is a 67-year-old male referred by Dr. Emerson for port placement. He was diagnosed with right-sided lung adenocarcinoma in November 2022. He did have metastases to the head and underwent radiation treatment last January. There is also noted to be possible omental involvement. He has been on chemotherapy. CT scanning has shown right hilar mass with adenopathy with high-grade stenosis with near complete occlusion of the right brachiocephalic vein and upper SVC. There were multiple collaterals. Due to issues with venous access surgery was asked for placement of port. He was seen as a surgical consultation on 10/28/2023. Arrangements were made for attempt at venous access port placement. His CT scan was reviewed and given the potential of upper SVC occlusion and right brachiocephalic occlusion plan was for attempt at left subclavian access. It was explained to the patient however that port placement may not be possible or achievable. Operative findings:: He had evidence of occlusion of SVC and brachiocephalic. Operative note:: Consent was obtained and patient was taken the operating room. He was positioned in supine position. General anesthesia was induced via LMA. Bilateral upper neck and chest was prepped and draped in the standard surgical fashion. Patient was positioned in Trendelenburg position. Given the findings on his CT scan plan was made for attempt at access in the left subclavian. Local anesthetic was infiltrated. 18-gauge needle was inserted which was directed posterior to the clavicle. There was good return of venous blood. Guidewire was inserted. Fluoroscopy was used. Guidewire would not pass beyond the left subclavian. There was evidence of brachiocephalic occlusion. Several additional attempts were made in which the vein was aspirated but guidewire repeatedly would not thread. Given his venous anatomy to avoid potential complications the procedure was terminated. He may require complex venous access at tertiary facility if necessary. Clean dry sterile dressing was applied. Condition: stable Disposition: PACU Complications:: None immediately apparent
--- NOTE | 2023-11-03 11:48 | XR_ITS ---
FINAL REPORT CLINICAL HISTORY: PORT A CATH 1.9 alesha 23.24 fl time 0.00 mGy/alesha FINDINGS: FLUOROSCOPY LESS THAN 1 HOUR HISTORY: Fluoroscopy guidance. FINDINGS: Fluoroscopic guidance was provided for Port-A-Cath placement. A single spot film was obtained. A total of 1.9 minutes of fluoroscopy time were used. DAP: 23.24 mGy IMPRESSION: As above. Reviewed, Interpreted and Dictated by Sabi Tan MD Transcribed by Guerda Fulton Authenticated and [facility]
--- NOTE | 2023-11-03 11:49 | XR_ITS ---
FINAL REPORT CLINICAL HISTORY: post surgical procedure failed port a cath procedure COMPARISON: 10/23/2023 FINDINGS: A portable view of the chest was obtained. Cardiac and mediastinal silhouettes are stable. The right perihilar opacity is unchanged. No port was placed. There is no pleural effusion or pneumothorax. IMPRESSION: Unchanged right perihilar opacity. No pneumothorax post procedure. Reviewed, Interpreted and Dictated by Sabi Tan MD Transcribed by Guerda Fulton Authenticated and [facility]
--- NOTE | 2023-11-03 11:50 | EXP.ANES.I ---
[facility] Anesthesia Record Part I Anesthesia Record I Intake, IV Amount: 1,000 Hydration: Adequate Estimated blood loss (mL): 10 Urine output (mL): 0 Blood Products used (#): none Blood Pressure: 115/64 SaO2: 98 Pulse Rate: 63 Airway Patency: Patent Respiratory Rate: 16 Temperature: 97.1 F Patient is:: Awake (Talking after removal of oral airway @ 11:51), Oral/Nasal airway (10.0 upon arrival to PACU) and Stable Stable to PACU at:: 11:50
--- NOTE | 2023-11-03 12:44 | P.PNANES_ITS ---
[facility] Anesthesia Record Part II Anesthesia Record Part II Discharge Time: 12:15 Destination: Surgical Day Care (OP Surgery) PACU nurse assessment reviewed?: Yes Patient Condition:: Good Anesthesia Complications:: None Swallowing reflex intact?: Yes Airway Patency: Patent Cyanosis?: No Blood Pressure: 129/74 SaO2: 98 Respiratory Rate: 16 Pulse Rate: 62 Temperature: 98.2 F Mental Status: Alert & Oriented Pain level:: 0 Nausea and/or vomitting:: None Intake, IV Amount: 1,000 Hydration: Adequate
== END 2023-11-03 12:46 | disposition home or self-care (01) ==
PROVIDERS: PCP Family Medicine; Visit Provider Surgery
PROC: (CPT 36571; principal; 2023-11-03 10:45)
DX: C34.91 Malignant neoplasm of unspecified part of right bronchus or lung (principal); C79.31 Secondary malignant neoplasm of brain; Z53.09 Procedure and treatment not carried out because of other contraindication; I77.1 Stricture of artery; Z72.0 Tobacco use
CPT/HCPCS: 36571; 36415; 71045; 76000; 80048; 96374; J3490; C1788; J1100; J1642; J2250; J2405; J3010

== ENCOUNTER 2023-11-07 08:32 | Outpatient (CLI) | payer MEDICARE, OTHER, SELFPAY ==
--- NOTE | 2023-11-07 08:35 | CT_ITS ---
FINAL REPORT TECHNIQUE: After the administration of oral and intravenous contrast, axial images were obtained through the abdomen and pelvis by computed tomography. The study was performed with techniques to keep radiation dose as low as reasonably achievable, (ALARA). Individual dose reduction techniques using automated exposure control or adjustment of mA and/or kV according to the patient's size were employed. CLINICAL HISTORY: lung cancer COMPARISON: 07/28/2023 FINDINGS: Abdomen: A small right pleural effusion is present, slightly larger than seen on the prior CT. The liver parenchyma is homogeneous, and enlarged, measuring up to 21 cm in length.. The gallbladder is present. The spleen, pancreas, adrenals and kidneys appear unremarkable. The aorta is normal in caliber. The amount of ascites present in the abdomen has increased since the prior CT. Pelvis: The appendix is not identified. The urinary bladder is incompletely distended. The omental stranding seen on the prior CT is less evident. A small amount of pelvic free fluid is present. IMPRESSION: Increased amount of ascites is present when compared to the prior CT of July 27. The omental stranding noted on the prior CT is less evident on today's examination. Reviewed, Interpreted and Dictated by Kurt Tadeo MD Transcribed by Diya Hernandez Authenticated and . [facility]
--- NOTE | 2023-11-07 08:35 | CT_ITS ---
FINAL REPORT TECHNIQUE: Routine axial images were obtained from the lung apices to below the diaphragm following IV contrast administration. Individualized dose reduction techniques using automated exposure control or adjustment of the mA and/or kV according to the patient size were employed. CLINICAL HISTORY: lung cancer COMPARISON: 07/28/2023 FINDINGS: CT CHEST WITH CONTRAST: There is ill-defined confluent right paratracheal adenopathy, visually stable. There is a discrete precarinal lymph node, 2.5 x 2.3 cm in size, also stable when compared to the prior exam. There is abnormal subcarinal soft tissue, measuring up to 2.3 cm in size. There is a soft tissue mass in the right perihilar region, measuring 4.2 x 2.5 cm in size, slightly smaller than seen on the prior exam. There is a small right pleural effusion, larger than seen on the prior exam. There is a right upper lobe pulmonary nodule measuring 7 mm in size, stable, best seen on image #28. No new pulmonary nodules are identified. There is moderate ascites present as well, more evident than seen on the prior exam. No pericardial effusions are seen. IMPRESSION: Paratracheal, precarinal, and subcarinal adenopathy remains present and is unchanged in appearance since the prior CT of July 27. There is a right perihilar region focus of adenopathy that is slightly smaller than seen on the previous exam. There is a right pleural effusion, slightly larger than seen on the previous exam. There is also more prominent ascites as well. Right upper lobe pulmonary nodule roslyn unchanged, and no new nodules are identified. Reviewed, Interpreted and Dictated by Kurt Tadeo MD Transcribed by Diya Hernandez Authenticated and [facility]
--- NOTE | 2023-11-07 08:36 | CT_ITS ---
FINAL REPORT TECHNIQUE: Multiple axial CT sections were performed from the foramen magnum to the vertex. Coronal and sagittal reformatted images were also obtained. Postcontrast injection images were obtained. This study was performed with technique to keep radiation doses as low as reasonably achievable, (ALARA). Individualized dose reduction techniques using automated exposure control or adjustment of mA and/or kV according to the patient size were employed. CLINICAL HISTORY: LUNG CANCER COMPARISON: 07/28/2023 FINDINGS: CT HEAD WITH CONTRAST: Mild global atrophy is once again identified. There is no evidence of hemorrhage. There are several regions of vasogenic edema again seen intracranially. There is a right posterior parietal area of vasogenic edema, with a faintly enhancing 11 mm focus, not significantly changed since the prior CT of July. There is a left occipital region of vasogenic edema, with a faintly enhancing approximately 20 mm focus, also not significantly changed. There is a second left occipital parietal area of vasogenic edema, with an underlying presumed metastatic lesion not well-visualized. No extra-axial fluid collection is seen. There is severe lobular mucoperiosteal thickening in the maxillary, ethmoid, sphenoid, and frontal sinuses consistent with pansinusitis. No osseous abnormality is seen on the bone window images. IMPRESSION: Several regions of vasogenic edema are seen as described above, and faint areas of enhancement are noted consistent with underlying metastases in this patient with known lung cancer. The overall appearance is not significantly changed since the prior CT of July 27. Reviewed, Interpreted and Dictated by Kurt Tadeo MD Transcribed by Diya Hernandez Authenticated and . [facility]
[2023-11-07] MEDS: IOPAMIDOL-370 (76%);100ML BOTTLE 75 ML IV (09:45)
[2023-11-07] MEDS: SODIUM CHLORIDE 0.9% 10ML SYR (RAD ONLY) 10 ML IV (09:45)
== END 2023-11-07 23:59 | disposition home or self-care (01) ==
LOC: RAD 08:32
PROVIDERS: PCP Family Medicine; Visit Provider Internal Medicine Medical Oncology
DX: C34.90 Malignant neoplasm of unspecified part of unspecified bronchus or lung (principal)
CPT/HCPCS: 70460; 71260; 74177; Q9967

== ENCOUNTER 2023-11-13 09:12 | Outpatient (CLI) | payer MEDICARE, OTHER, SELFPAY ==
[2023-11-13 09:17] VITALS: BMI 26.6
--- NOTE | 2023-11-13 12:07 | XR_ITS ---
FINAL REPORT CLINICAL HISTORY: PICC PLACEMENT COMPARISON: 11/03/2023 FINDINGS: A left PICC line has been placed in the interval since the prior chest x-ray of November 02. The tip of the catheter is in the upper superior vena cava. There is no evidence of effusion or pneumothorax. There are persistent increased markings in the right lung base, that may represent pneumonia, partially improved since the prior exam. Mediastinum is unremarkable. Heart size is normal. IMPRESSION: PICC line tip is present in the upper superior vena cava without evidence of pneumothorax. Persistent increased markings in the right lung base, possibly pneumonia, partially improved since the prior exam. Reviewed, Interpreted and Dictated by Krishna Lenz MD Transcribed by Diya Hernandez Authenticated and [facility]
[2023-11-13 12:35] LABS: Basophils % 0.7 % (0.1-2.0); Eosinophils # 0.1 K/mm3 (0.0-0.4); Hematocrit 33.6 % (42.0-52.0); Hemoglobin 10.5 g/dL (14.1-18.0); Lymphocytes # 1.1 K/mm3 (0.7-4.5); Lymphocytes % 23.8 % (10-50); Mean Corpuscular HGB Conc 31.2 g/dL (31.8-35.4); Mean Corpuscular Hemoglobin 35.4 pg (27.0-31.2); Mean Corpuscular Volume 113.5 fl (80-94); Mean Platelet Volume 9.4 fl (7.4-10.4); Monocytes # 0.3 K/mm3 (0.1-1.0); Neutrophils # 3.1 K/mm3 (1.8-7.8); Neutrophils % 67.5 % (37.0-80.0); Platelet Count 428 K/mm3 (142-424); Red Blood Count 2.96 M/mm3 (4.60-6.20); Red Cell Distribution Width 17.9 % (11.5-17.5); White Blood Count 4.6 K/mm3 (4.8-10.8)
[2023-11-13 12:41] LABS: Chloride 108 mmol/L (98-107); Sodium 136 mmol/L (136-145)
[2023-11-13 12:44] LABS: Alanine Aminotransferase 20 U/L (12-78); Albumin/Globulin Ratio 1.1 (1.1-1.8); Alkaline Phosphatase 75 U/L (38-126); Aspartate Amino Transferase 39 U/L (17-59); Bilirubin,Total 0.4 mg/dl (0.2-1.3); Blood Urea Nitrogen 15 mg/dl (9-20); Calcium 9.3 mg/dl (8.4-10.2); Carbon Dioxide 23 mmol/L (22.0-30.0); Creatinine Clearance Estimated 80 mL/min (50-200); Estimated Glomerular Filt Rate 96 ml/min (>60); GFR (African American) 117 ML/MIN (>60); Globulin 3.7 g/dL (1.3-3.2); Glucose 84 mg/dl (74-100); Total Protein,Serum 7.7 g/dl (6.3-8.2)
[2023-11-13 13:15] LABS: Thyroid Stimulating Hormone 3.06 uIU/mL (0.465-4.68)
[2023-11-13] MEDS: PROCHLORPERAZINE 10MG TABLET 10 MG PO (13:17)
[2023-11-13] MEDS: 0.9 % SODIUM CHLORIDE 100 ML IV (13:17)
[2023-11-13 13:49] VITALS: BP 118/64; PULSE 58; RESP 17; TEMP 36.1
[2023-11-13] MEDS: PEMBROLIZUMAB 200 MG in 0.9 % SODIUM CHLORIDE 50 ML 100 MG IV (13:49)
[2023-11-13 14:04] VITALS: BP 106/59; PULSE 62; RESP 16
--- NOTE | 2023-11-13 14:14 | PC.NURSE ---
1030 - FELCIITAS TOMAS RN ATTEMPTED TO PLACE IV X3 WITH NO SUCCESS. RECEIVED ORDER FROM DR BERNABE FOR PICC PLACEMENT.
[2023-11-13 14:19] VITALS: BP 106/59; PULSE 62; RESP 16
[2023-11-13 14:34] VITALS: BP 130/69; PULSE 61; RESP 16
[2023-11-13] MEDS: SODIUM CHLORIDE 0.9% IV (14:41)
[2023-11-13] MEDS: PEMETREXED DISODIUM IV (14:41)
[2023-11-13 14:55] VITALS: BP 116/70; PULSE 64; RESP 16
[2023-11-14 13:39] LABS: Adrenocorticotropic Hormone 42.8 pg/mL (7.2-63.3)
--- NOTE | 2023-11-17 14:52 | DIET.NUTRFU ---
This RD received a consult for wt loss, reviewed file. He has lung CA with mets, sees Dr. Emerson for tx. Completed 4 cycles of chemo in April. CBW is 75kg, down 13kg since 06/24 and 17kg since . He reports he has changed he diet to mostly fruits and vegetables. He is also drinking 2 ensures daily, but sometimes gives him diarrhea. Suggested premier protein instead or buying a protein pwd and adding to food he is consuming. He reports he likes eggs/beans and cottage cheese but does not eat much meat. Has been eating breakfast at fast food restaurants in town which does not prefer but he feels he has to eat, suggested a sit down restaurant instead. He requested some nutritional information mailed instead of coming in for apt. Will send him a milkshake recipe handout, wt gain tips and suggestions along with contact information to follow-up as needed
== END 2023-11-13 15:10 | disposition home or self-care (01) ==
LOC: INF 09:13
PROVIDERS: PCP Family Medicine; Visit Provider Internal Medicine Medical Oncology
DX: R91.8 Other nonspecific abnormal finding of lung field (principal); Z79.899 Other long term (current) drug therapy
CPT/HCPCS: 36410; 71045; 80053; 82024; 82533; 84443; 85025; 96411; 96413; C1751; J9271; J9305; Q0164

== ENCOUNTER 2023-11-20 10:04 | Outpatient (CLI) | payer MEDICARE, OTHER, SELFPAY ==
[2023-11-20 10:22] VITALS: BMI 25.2
[2023-11-20 10:35] VITALS: BP 113/61; PULSE 89; RESP 18; TEMP 36.5; O2SAT 100
[2023-11-20] MEDS: ONDANSETRON 4MG/2ML VIAL 8 MG IV (10:40)
[2023-11-20] MEDS: 0.9 % SODIUM CHLORIDE 1000ML 1,000 ML 999 ML IV (10:40)
[2023-11-20 10:55] VITALS: BP 105/65; PULSE 85; RESP 18; O2SAT 99
[2023-11-20 11:40] VITALS: BP 109/58; PULSE 82; RESP 18; O2SAT 99
--- NOTE | 2023-11-20 11:44 | XR_ITS ---
FINAL REPORT CLINICAL HISTORY: abdominal pain, vomiting COMPARISON: CT dated 11/07/2023 FINDINGS: A PA view of the chest was obtained. The mediastinum is unremarkable. There is an opacity in the right perihilar region consistent with known mass. There is no free air beneath the diaphragm. Upright and supine views of the abdomen reveal a nonspecific, nonobstructive bowel gas pattern. There are calcifications in projection of both kidneys consistent with bilateral stones. IMPRESSION: Bilateral nephrolithiasis. Known right perihilar mass again identified. Please see report of recent CT. Reviewed, Interpreted and Dictated by Kurt Tadeo MD Transcribed by Raysa Pablo Authenticated and [facility] [place]
[2023-11-20] MEDS: CATHFLO 2MG VIAL 2 MG IV ×2 (11:45→13:05)
[2023-11-20 12:18] VITALS: BP 116/59; PULSE 83; RESP 18; O2SAT 99
[2023-11-20 13:05] VITALS: BP 103/60; PULSE 91; RESP 18; O2SAT 100
[2023-11-20 14:00] VITALS: BP 96/58; PULSE 78; RESP 18; O2SAT 99
== END 2023-11-20 14:00 | disposition home or self-care (01) ==
PROVIDERS: PCP Family Medicine; Visit Provider Internal Medicine Medical Oncology
DX: C34.91 Malignant neoplasm of unspecified part of right bronchus or lung (principal); R10.9 Unspecified abdominal pain; R11.2 Nausea with vomiting, unspecified; R53.1 Weakness
CPT/HCPCS: 36593; 74021; 96360; 96361; 96374; 96375; J2405; J2997; J7030

== ENCOUNTER 2023-11-27 09:37 | Outpatient (CLI) | payer MEDICARE, OTHER, SELFPAY | END 2023-11-27 10:45 | disposition home or self-care (01) | LOC: INF 09:39 | PROVIDERS: Visit Provider Internal Medicine Medical Oncology | DX: Z45.2 Encounter for adjustment and management of vascular access device (principal) | CPT/HCPCS: 96523 ==

== ENCOUNTER 2023-12-04 09:16 | Outpatient (CLI) | payer MEDICARE, OTHER, SELFPAY ==
[2023-12-04 09:21] VITALS: BMI 25.2
[2023-12-04 09:49] LABS: Basophils # 0.1 K/mm3 (0-0.2); Basophils % 0.9 % (0.1-2.0); Eosinophils % 0.6 % (0.1-12.0); Hematocrit 27.1 % (42.0-52.0); Hemoglobin 9.2 g/dL (14.1-18.0); Lymphocytes % 16.2 % (10-50); Mean Corpuscular Hemoglobin 35.1 pg (27.0-31.2); Mean Corpuscular Volume 103.1 fl (80-94); Mean Platelet Volume 9.7 fl (7.4-10.4); Monocytes # 0.5 K/mm3 (0.1-1.0); Monocytes % 8.2 % (1.7-9.3); Neutrophils # 4.4 K/mm3 (1.8-7.8); Neutrophils % 74.2 % (37.0-80.0); Platelet Count 444 K/mm3 (142-424); Red Blood Count 2.62 M/mm3 (4.60-6.20); Red Cell Distribution Width 17.1 % (11.5-17.5); White Blood Count 5.9 K/mm3 (4.8-10.8)
[2023-12-04 09:58] LABS: Albumin Level 3.6 g/dl (3.5-5.0); Chloride 102 mmol/L (98-107); Sodium 136 mmol/L (136-145)
[2023-12-04 10:01] LABS: Alanine Aminotransferase 26 U/L (12-78); Albumin/Globulin Ratio 1.1 (1.1-1.8); Alkaline Phosphatase 60 U/L (38-126); Aspartate Amino Transferase 36 U/L (17-59); Bilirubin,Total 0.4 mg/dl (0.2-1.3); Blood Urea Nitrogen 29 mg/dl (9-20); Carbon Dioxide 26 mmol/L (22.0-30.0); Creatinine Clearance Estimated 59 mL/min (50-200); Estimated Glomerular Filt Rate 55 ml/min (>60); GFR (African American) 67 ML/MIN (>60); Globulin 3.4 g/dL (1.3-3.2)
[2023-12-04 10:02] LABS: Calcium 8.9 mg/dl (8.4-10.2); Glucose 113 mg/dl (74-100)
--- NOTE | 2023-12-04 10:20 | PC.NURSE ---
1025-spoke with malathi belle for dr. ospina, pt chemo treatment to be held this week per md order
--- NOTE | 2023-12-04 11:16 | PC.NURSE ---
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
--- NOTE | 2023-12-04 12:04 | DIET.NUTRFU ---
saw patient during infusion today, he has added in 1 milkshake daily along with egg/biscuit and gravy and 2 sandwiches. Still losing weight down 12# in 2 weeks. recommended to add in another shake, switch to whole milk and add whey protein into foods like mashed potatoes/cream soups/gravy mix. Weight again in 1-2 weeks
== END 2023-12-04 12:00 | disposition home or self-care (01) ==
LOC: INF 09:18
PROVIDERS: PCP Family Medicine; Visit Provider Internal Medicine Medical Oncology
DX: R91.8 Other nonspecific abnormal finding of lung field (principal)
CPT/HCPCS: 36415; 80053; 85025; 96523

== ENCOUNTER 2023-12-11 09:06 | Outpatient (CLI) | payer MEDICARE, OTHER, SELFPAY | END 2023-12-11 09:20 | disposition home or self-care (01) | LOC: INF 09:07 | PROVIDERS: PCP Family Medicine; Visit Provider Internal Medicine Medical Oncology | DX: Z45.2 Encounter for adjustment and management of vascular access device (principal) | CPT/HCPCS: 96523 ==

== ENCOUNTER 2023-12-18 09:14 | Outpatient (CLI) | payer MEDICARE, OTHER, SELFPAY | END 2023-12-18 09:30 | disposition home or self-care (01) | LOC: INF 09:15 | PROVIDERS: PCP Family Medicine; Visit Provider Internal Medicine Medical Oncology | DX: Z45.2 Encounter for adjustment and management of vascular access device (principal) | CPT/HCPCS: 96523 ==

== ENCOUNTER 2023-12-25 09:03 | Outpatient (CLI) | payer MEDICARE, OTHER, SELFPAY ==
[2023-12-25 09:34] LABS: Basophils # 0.1 K/mm3 (0-0.2); Basophils % 1.5 % (0.1-2.0); Eosinophils # 0.1 K/mm3 (0.0-0.4); Eosinophils % 2.1 % (0.1-12.0); Hematocrit 32.5 % (42.0-52.0); Hemoglobin 10.8 g/dL (14.1-18.0); Lymphocytes # 1.4 K/mm3 (0.7-4.5); Lymphocytes % 22.5 % (10-50); Mean Corpuscular HGB Conc 33.3 g/dL (31.8-35.4); Mean Corpuscular Hemoglobin 36.1 pg (27.0-31.2); Mean Corpuscular Volume 108.5 fl (80-94); Mean Platelet Volume 8.7 fl (7.4-10.4); Monocytes # 0.4 K/mm3 (0.1-1.0); Neutrophils # 4.2 K/mm3 (1.8-7.8); Neutrophils % 66.9 % (37.0-80.0); Platelet Count 264 K/mm3 (142-424); Red Blood Count 2.99 M/mm3 (4.60-6.20); White Blood Count 6.2 K/mm3 (4.8-10.8)
[2023-12-25 09:38] LABS: Albumin Level 3.7 g/dl (3.5-5.0); Chloride 113 mmol/L (98-107); Potassium 3.9 mmoL/L (3.5-5.1); Sodium 139 mmol/L (136-145)
[2023-12-25 09:41] LABS: Alanine Aminotransferase 15 U/L (12-78); Albumin/Globulin Ratio 1.1 (1.1-1.8); Alkaline Phosphatase 53 U/L (38-126); Anion Gap 8.9 mEq/L (5-15); Aspartate Amino Transferase 30 U/L (17-59); Bilirubin,Total 0.4 mg/dl (0.2-1.3); Blood Urea Nitrogen 29 mg/dl (9-20); Carbon Dioxide 21 mmol/L (22.0-30.0); Estimated Glomerular Filt Rate 84 ml/min (>60); GFR (African American) 102 ML/MIN (>60); Globulin 3.3 g/dL (1.3-3.2)
[2023-12-25 09:42] LABS: Calcium 8.7 mg/dl (8.4-10.2); Glucose 121 mg/dl (74-100)
--- NOTE | 2023-12-25 11:30 | PC.NURSE ---
12/25/23 1020 pt escorted to specialty clinic to attend appt with pt to return for tx.
== END 2023-12-25 11:20 | disposition home or self-care (01) ==
LOC: INF 09:04
PROVIDERS: PCP Family Medicine; Visit Provider Internal Medicine Medical Oncology
DX: D49.1 Neoplasm of unspecified behavior of respiratory system (principal)
CPT/HCPCS: 36592; 80053; 85025; 96523

== ENCOUNTER 2024-01-01 09:04 | Outpatient (CLI) | payer MEDICARE, OTHER, SELFPAY | END 2024-01-01 09:40 | disposition home or self-care (01) | LOC: INF 09:05 | PROVIDERS: PCP Family Medicine; Visit Provider Internal Medicine Medical Oncology | DX: Z45.2 Encounter for adjustment and management of vascular access device (principal) | CPT/HCPCS: 96523 ==

== ENCOUNTER 2024-01-08 08:43 | Outpatient (CLI) | payer MEDICARE, OTHER, SELFPAY | END 2024-01-08 09:00 | disposition home or self-care (01) | LOC: INF 08:44 | PROVIDERS: PCP Family Medicine; Visit Provider Internal Medicine Medical Oncology | DX: C34.90 Malignant neoplasm of unspecified part of unspecified bronchus or lung (principal); Z45.9 Encounter for adjustment and management of unspecified implanted device | CPT/HCPCS: 96523 ==

== ENCOUNTER 2024-01-12 06:02 | Outpatient (CLI) | payer MEDICARE, OTHER, SELFPAY ==
--- NOTE | 2024-01-12 06:31 | CT_ITS ---
FINAL REPORT TECHNIQUE: Thin section axial images are obtained through the abdomen and pelvis after intravenous contrast. Reconstruction images were obtained from the axial data. Exam was performed using dose reduction techniques. CLINICAL HISTORY: lung mass COMPARISON: 11/07/2023 FINDINGS: LIVER: Homogeneous. No focal lesion. GALLBLADDER/BILIARY SYSTEM: Gallbladder is present. No gallstones. No biliary dilatation. SPLEEN: Unremarkable. PANCREAS: Unremarkable. ADRENALS: Unremarkable. SYSTEM: No hydronephrosis, renal mass, or renal stone. Unremarkable urinary bladder. Prostate mildly enlarged. Pelvic organs are otherwise unremarkable for age. GI TRACT: No small bowel obstruction or dilatation. Appendix not visualized. No secondary signs of appendicitis. Colon is mildly fluid-filled but otherwise unremarkable. LYMPH NODES/RETROPERITONEUM/MESENTERY: Worsening abnormal attenuation within the omentum and mesentery. Peritoneal metastasis a concern. No abdominal aortic aneurysm. OTHER: Remaining soft tissues without acute abnormality. BONES: No acute osseous abnormality. IMPRESSION: Worsening ascites, malignant ascites not excluded. Worsening abnormal attenuation of the omentum and mesentery. Peritoneal metastasis not excluded. Reviewed, Interpreted and Dictated by Sabi Tan MD Transcribed by Shawna Bello Authenticated and [facility]
--- NOTE | 2024-01-12 06:31 | CT_ITS ---
FINAL REPORT TECHNIQUE: Thin section axial images were obtained from the thoracic inlet through the upper abdomen after intravenous contrast injection. Reconstruction images were obtained from the axial data. Exam was performed using dose reduction technique. This study was performed with techniques to keep radiation doses as low as reasonably achievable (ALARA). Individualized dose reduction techniques using automated exposure control or adjustment of mA and/or kV according to the patient's size were employed. CLINICAL HISTORY: lung mass COMPARISON: 11/07/2023 FINDINGS: No axillary adenopathy is identified. A high right paratracheal node measures 16 mm, was previously 19 mm. There is a more inferior right paratracheal node, which measures 26 mm, was previously 35 mm. There is a right perihilar mass lesion, that measures 45 x 40 mm, was previously 43 x 38 mm, likely stable secondary to slice selection. A right pleural effusion remains present and is unchanged in appearance. There is no left pleural effusion or pericardial effusion present. There are several subcentimeter right pleural nodules, seen on image #14, stable when compared to the prior exam. There is a 7 mm nodule best seen on image #27, in the right upper lobe, also stable. There are interlobular septal thickening and ground glass opacities in the right lower lobe, not significantly changed. Lymphangitic tumor spread is not excluded. There is a slight increase in upper abdominal ascites when compared to the prior exam. No acute osseous abnormality. IMPRESSION: There is slight improvement in the right paratracheal adenopathy when compared to the prior exam. There is a slight increase in upper abdominal ascites when compared to the prior exam. The remainder of the chest examination is essentially stable when compared to the prior exam of 11/07/2023. Reviewed, Interpreted and Dictated by Sabi Tan MD Transcribed by Diya Hernandez Authenticated and [facility]
[2024-01-12] MEDS: SODIUM CHLORIDE 0.9% 50ML BAG 50 ML IV (06:49)
[2024-01-12] MEDS: BARIUM SULFATE(READI-CAT2);450ML BOTTLE 450 ML PO (06:50)
[2024-01-12] MEDS: IOPAMIDOL-370 (76%);100ML BOTTLE 75 ML IV (06:50)
== END 2024-01-12 23:59 | disposition home or self-care (01) ==
LOC: RAD 06:03
PROVIDERS: PCP Family Medicine; Visit Provider Internal Medicine Medical Oncology
DX: R91.8 Other nonspecific abnormal finding of lung field (principal); D49.1 Neoplasm of unspecified behavior of respiratory system
CPT/HCPCS: 71260; 74177; Q9967

== ENCOUNTER 2024-01-14 08:21 | Outpatient (CLI) | payer MEDICARE, OTHER, SELFPAY | END 2024-01-14 08:51 | disposition home or self-care (01) | LOC: INF 08:22 | PROVIDERS: PCP Family Medicine; Visit Provider Internal Medicine Medical Oncology | DX: C34.90 Malignant neoplasm of unspecified part of unspecified bronchus or lung (principal) | CPT/HCPCS: 96523 ==

== ENCOUNTER 2024-01-21 09:50 | Outpatient (CLI) | payer MEDICARE, OTHER, SELFPAY | END 2024-01-21 10:08 | disposition home or self-care (01) | LOC: INF 09:52 | PROVIDERS: PCP Family Medicine; Visit Provider Internal Medicine Medical Oncology | DX: Z48.00 Encounter for change or removal of nonsurgical wound dressing (principal) | CPT/HCPCS: 96523 ==

== ENCOUNTER 2024-01-28 08:47 | Outpatient (CLI) | payer MEDICARE, OTHER, SELFPAY | END 2024-01-28 09:30 | disposition home or self-care (01) | LOC: INF 08:48 | PROVIDERS: PCP Family Medicine; Visit Provider Internal Medicine Medical Oncology | DX: Z45.2 Encounter for adjustment and management of vascular access device (principal) | CPT/HCPCS: 96523 ==

== ENCOUNTER 2024-02-03 09:30 | Outpatient (CLI) | payer MEDICARE, OTHER, SELFPAY ==
--- NOTE | 2024-02-03 09:31 | US_ITS ---
FINAL REPORT CLINICAL HISTORY: .PT SCHED FOR PARA-- INSUFFICIENT FLUID FOR PARA PER BILL ROSSI FINDINGS: US LIMITED ABDOMEN Clinical history: Patient presents for paracentesis. Findings: Ultrasound imaging obtained in all 4 quadrants demonstrates only minimal ascitic fluid. The amount of fluid was insufficient to allow for safe performance of a paracentesis. IMPRESSION: Insufficient fluid for safe performance of a paracentesis. Films reviewed , interpreted and dictated by Dr. Lenz. Transcribed by Bill Sterling PA-C. Reviewed, Interpreted and Dictated by Krishna Lenz MD Transcribed by ENID Colon Authenticated and [facility]
== END 2024-02-03 23:59 | disposition home or self-care (01) ==
LOC: RAD 09:31
PROVIDERS: PCP Family Medicine; Visit Provider Internal Medicine Medical Oncology
DX: R18.8 Other ascites (principal); C34.31 Malignant neoplasm of lower lobe, right bronchus or lung; F17.210 Nicotine dependence, cigarettes, uncomplicated
CPT/HCPCS: 76705

== ENCOUNTER 2024-02-04 09:37 | Outpatient (CLI) | payer MEDICARE, OTHER, SELFPAY ==
[2024-02-04 11:11] LABS: Blood Urea Nitrogen 36 mg/dl (9-20); Estimated Glomerular Filt Rate 67 ml/min (>60); GFR (African American) 81 ML/MIN (>60)
== END 2024-02-04 09:45 | disposition home or self-care (01) ==
PROVIDERS: PCP Family Medicine; Visit Provider Internal Medicine Medical Oncology
DX: D49.1 Neoplasm of unspecified behavior of respiratory system (principal)
CPT/HCPCS: 36415; 82565; 84520; 96523

== ENCOUNTER 2024-02-05 07:26 | Outpatient (CLI) | payer MEDICARE, SELFPAY ==
--- NOTE | 2024-02-05 07:27 | CT_ITS ---
FINAL REPORT TECHNIQUE: Axial images through the brain were performed after the administration of IV contrast. Coronal reconstructions were submitted. This study was performed with techniques to keep radiation doses as low as reasonably achievable (ALARA). Individualized dose reduction techniques using automated exposure control or adjustment of mA and/or kV according to the patient's size were employed. CLINICAL HISTORY: lung cancer COMPARISON: 11/07/2023 FINDINGS: Encephalomalacia and mild edema are seen in the left occipital lobe and are stable from the prior exam. There is a probable underlying enhancing focus measuring up to 20 mm which is unchanged. Minimal increased edema is seen within the right parietal occipital region with an underlying enhancing focus measuring up to 15 mm, likely metastasis. There are no new sites of edema. No hemorrhage is seen. There is no significant midline shift. No skull abnormality is seen on the bone window images. IMPRESSION: Stable left occipital edema with underlying subtle enhancing lesion. Mild worsening right parieto-occipital edema with underlying lesion, stable. No new abnormality identified. Reviewed, Interpreted and Dictated by Krishna Lenz MD Transcribed by Guerda Fulton Authenticated and . [facility]
[2024-02-05] MEDS: IOPAMIDOL-300 (61%) 100ML VIAL 100 ML IV (08:17)
[2024-02-05] MEDS: SODIUM CHLORIDE 0.9% 10ML SYR (RAD ONLY) 10 ML IV (08:17)
== END 2024-02-05 23:59 | disposition home or self-care (01) ==
LOC: RAD 07:27
PROVIDERS: PCP Family Medicine; Visit Provider Internal Medicine Medical Oncology
DX: C34.31 Malignant neoplasm of lower lobe, right bronchus or lung (principal); F17.210 Nicotine dependence, cigarettes, uncomplicated
CPT/HCPCS: 70460; G0463; Q9967

== ENCOUNTER 2024-03-11 07:42 | Outpatient (CLI) | payer MEDICARE, OTHER, SELFPAY ==
--- NOTE | 2024-03-11 07:51 | CT_ITS ---
FINAL REPORT TECHNIQUE: Routine axial images were obtained from the lung apices to below the diaphragm following IV contrast administration. Individualized dose reduction techniques using automated exposure control or adjustment of the mA and/or kV according to the patient size were employed. CLINICAL HISTORY: hx of cancer (brain and lung) COMPARISON: 01/12/2024 FINDINGS: CT CHEST WITH CONTRAST: CT examination of the chest once again demonstrates a right upper lobe mass extending to the hilum, on today's examination measuring 3.5 x 3.0 cm in size, slightly decreased in size since the prior exam. Right paratracheal and precarinal adenopathy remains present, and is either stable or slightly improved when compared to the prior exam. A precarinal node was previously 2.7 cm, and measures 2.3 cm on today's exam. Subcarinal adenopathy measures 3 cm, stable. A moderate-sized right pleural effusion is noted, which has increased in size since the prior exam. There is linear scarring present in the right upper lobe and right lower lobe, stable. IMPRESSION: Right upper lobe mass extending to the hilum is slightly decreased in size when compared to the prior exam. There is also slight improvement in precarinal adenopathy. Subcarinal adenopathy is stable. There is an increase in size of the right pleural effusion when compared to the prior exam. Reviewed, Interpreted and Dictated by Kurt Tadeo MD Transcribed by Diya Hernandez Authenticated and . [facility]
--- NOTE | 2024-03-11 07:51 | CT_ITS ---
FINAL REPORT TECHNIQUE: After the administration of oral and intravenous contrast, axial images were obtained through the abdomen and pelvis by computed tomography. The study was performed with techniques to keep radiation dose as low as reasonably achievable, (ALARA). Individual dose reduction techniques using automated exposure control or adjustment of mA and/or kV according to the patient's size were employed. CLINICAL HISTORY: hx of cancer (brain and lung) COMPARISON: 01/12/2024 FINDINGS: Abdomen: Moderate ascites is present, slightly increased when compared to the prior exam of 01/12/2024. The liver parenchyma is homogeneous. The gallbladder is present. The spleen, pancreas, adrenals and kidneys appear unremarkable. The aorta is normal in caliber. There are multiple small retroperitoneal nodes once again identified, stable when compared to the prior exam. Mesenteric stranding is once again noted, slightly greater in the right abdomen compared with the left. Once again, these findings are worrisome for malignant ascites and peritoneal metastases. Pelvis: The appendix is not identified. The urinary bladder is partially contracted. Ascites is noted in the pelvis as well. IMPRESSION: Moderate ascites is present in the abdomen and pelvis, slightly increased when compared to the prior exam. Malignant ascites cannot be excluded. Correlation with paracentesis and cytology examination may be helpful. Mesenteric stranding is once again identified, worrisome for peritoneal metastases. The overall appearance is stable. Reviewed, Interpreted and Dictated by Kurt Tadeo MD Transcribed by Diya Hernandez Authenticated and [facility]
[2024-03-11 08:15] LABS: Blood Urea Nitrogen 32 mg/dl (9-20); Estimated Glomerular Filt Rate 75 ml/min (>60); GFR (African American) 90 ML/MIN (>60)
[2024-03-11] MEDS: SODIUM CHLORIDE 0.9% 10ML SYR (RAD ONLY) 10 ML IV (08:49)
[2024-03-11] MEDS: IOPAMIDOL-370 (76%);100ML BOTTLE 75 ML IV (08:49)
== END 2024-03-11 23:59 | disposition home or self-care (01) ==
LOC: RAD 07:44
PROVIDERS: PCP Family Medicine; Visit Provider Internal Medicine Medical Oncology
DX: C34.91 Malignant neoplasm of unspecified part of right bronchus or lung (principal)
CPT/HCPCS: 36415; 71260; 74177; 82565; 84520; Q9967

== ENCOUNTER 2024-03-16 09:19 | Outpatient (CLI) | payer MEDICARE, OTHER, SELFPAY ==
--- NOTE | 2024-03-16 09:19 | US_ITS ---
FINAL REPORT CLINICAL HISTORY: rt pleural effusion -- rt thoracentesis -- pablo ROSSI -- 650 ml FINDINGS: ULTRASOUND-GUIDED THORACENTESIS HISTORY: Pleural effusion. ATTENDING PHYSICIAN: Dr. Tadeo PHYSICIAN RESIDENT INSPECTOR: Pablo Sterling PA-C TECHNIQUE: Informed consent was obtained from the patient. The indications and complications were discussed with the patient prior to beginning the procedure. This included, but was not limited to pain, bleeding, infection, and pneumothorax requiring chest tube placement. The right back was then prepped and draped in sterile fashion. 1% Lidocaine was used for local anesthesia. Utilizing sonographic guidance, a standard thoracentesis needle and sheath were inserted into the pleural space and approximately 750 mL of clear pleural fluid was successfully removed without complication. The patient tolerated the procedure well. IMPRESSION: Technically successful sonographic guided right-sided thoracentesis as above. Films reviewed , interpreted and dictated by Dr. Tadeo. Transcribed by Pablo Sterling PA-C. Reviewed, Interpreted and Dictated by Kurt Tadeo MD Transcribed by ENID Colon Authenticated and [facility]
--- NOTE | 2024-03-16 09:53 | XR_ITS ---
FINAL REPORT TECHNIQUE: Chest PA & Lateral CLINICAL HISTORY: POST THORA COMPARISON: 11/13/2023 FINDINGS: 2 views of the chest were performed. The heart size is normal. The mediastinum is within normal limits. There is linear scar or atelectasis in the right perihilar region. Chronic changes are seen at the lung bases. There is a trace right pleural effusion. There is no pneumothorax. The bony thorax appears intact. IMPRESSION: No pneumothorax post thora. Linear scar or atelectasis right perihilar region. Reviewed, Interpreted and Dictated by Kurt Tadeo MD Transcribed by Guerda Fulton Authenticated and [facility]
[2024-03-16 10:00] VITALS: BP 130/69; PULSE 61; RESP 18; TEMP 36.5; O2SAT 97
--- NOTE | 2024-03-16 10:15 | PC.NURSE ---
patient ambulated from radiology to post op after thoracentesis. report from Shayla Figueredo. Procedure completed with no complications. verbal order to monitor patient for 45 minutes then discharge home per Rodri Bello. VS stable. patient alert and oriented x4. sitting in chair.
[2024-03-16 10:37] VITALS: BP 120/74; PULSE 56; RESP 18; O2SAT 98
[2024-03-18 09:36] LABS: Glucose, Body Fluid 74 mg/dL (.); LD, Body Fluid 206 IU/L (.); Protein, Body Fluid 4.5 g/dL (.)
== END 2024-03-16 10:45 | disposition home or self-care (01) ==
PROVIDERS: PCP Family Medicine; Visit Provider Internal Medicine Medical Oncology
DX: R18.8 Other ascites (principal); C34.31 Malignant neoplasm of lower lobe, right bronchus or lung
CPT/HCPCS: 32555; 71046; 82945; 83615; 84155; 88112; 88305

== ENCOUNTER 2024-04-06 09:30 | Outpatient (CLI) | payer MEDICARE, SELFPAY ==
[2024-04-06 09:53] LABS: Basophils # 0.1 K/mm3 (0-0.2); Basophils % 1.7 % (0.1-2.0); Eosinophils # 0.2 K/mm3 (0.0-0.4); Eosinophils % 2.4 % (0.1-12.0); Hemoglobin 12.8 g/dL (14.1-18.0); Lymphocytes # 1.8 K/mm3 (0.7-4.5); Lymphocytes % 23.3 % (10-50); Mean Corpuscular HGB Conc 32.8 g/dL (31.8-35.4); Mean Corpuscular Hemoglobin 29.1 pg (27.0-31.2); Mean Corpuscular Volume 88.6 fl (80-94); Mean Platelet Volume 10.2 fl (7.4-10.4); Monocytes # 0.5 K/mm3 (0.1-1.0); Monocytes % 6.9 % (1.7-9.3); Neutrophils # 4.9 K/mm3 (1.8-7.8); Neutrophils % 65.4 % (37.0-80.0); Platelet Count 278 K/mm3 (142-424); Red Cell Distribution Width 12.6 % (11.5-17.5); White Blood Count 7.5 K/mm3 (4.8-10.8)
--- NOTE | 2024-04-06 11:22 | PC.NURSE ---
04/06/24 0940 Pt presents post md appt to have labs drawn. Venipuncture performed to pt's lt ac x 1 stick using butterfly access needle. Blood drawn and needle withdrawn, site secured with 2x2 gauze and coban. Specimen sent to lab for analysis. Pt able to ambulate self to private vehicle.
[2024-04-06 11:26] LABS: Albumin Level 4.5 g/dl (3.5-5.0); Chloride 103 mmol/L (98-107); Potassium 3.9 mmoL/L (3.5-5.1); Sodium 139 mmol/L (136-145)
[2024-04-06 11:29] LABS: Alanine Aminotransferase 21 U/L (12-78); Albumin/Globulin Ratio 1.1 (1.1-1.8); Alkaline Phosphatase 75 U/L (38-126); Anion Gap 10.9 mEq/L (5-15); Aspartate Amino Transferase 32 U/L (17-59); Bilirubin,Total 0.4 mg/dl (0.2-1.3); Blood Urea Nitrogen 28 mg/dl (9-20); Calcium 9.2 mg/dl (8.4-10.2); Carbon Dioxide 29 mmol/L (22.0-30.0); Estimated Glomerular Filt Rate 60 ml/min (>60); GFR (African American) 73 ML/MIN (>60); Glucose 90 mg/dl (74-100); Total Protein,Serum 8.5 g/dl (6.3-8.2)
== END 2024-04-06 09:50 | disposition home or self-care (01) ==
LOC: INF 09:32
PROVIDERS: PCP Family Medicine; Visit Provider Internal Medicine Medical Oncology
DX: D49.1 Neoplasm of unspecified behavior of respiratory system (principal)
CPT/HCPCS: 36415; 80053; 85025

== ENCOUNTER 2024-04-29 06:20 | Outpatient (CLI) | payer MEDICARE, SELFPAY ==
--- NOTE | 2024-04-29 06:43 | CT_ITS ---
FINAL REPORT TECHNIQUE: Axial CT of the brain with contrast. Coronal and sagittal reformatted images were obtained. This study was performed with techniques to keep radiation doses as low as reasonably achievable, (ALARA). Individualized dose reduction techniques using automated exposure control or adjustment of mA and/or kV according to the patient's size were employed. CLINICAL HISTORY: lung cancer COMPARISON: 02/05/2024 FINDINGS: There is decreased attenuation in the medial left occipital and right posterior parietal regions, similar to the prior exam of January 2024. The overall appearance on today's examination appears more similar to encephalomalacia rather than underlying masses. No definite focal enhancement is identified. There is no acute mass effect or midline shift. There is ex vacuo enlargement of the left occipital horn of the lateral ventricle, also stable. There is no extra-axial or intraparenchymal hemorrhage. The posterior fossa is without acute abnormality. The basilar cisterns are preserved. There is extensive lobular mucoperiosteal thickening in the paranasal sinuses and the mastoid air cells, right greater than left, also seen on the prior exam. The soft tissues are without acute abnormality. No acute osseous abnormality is identified. No abnormal contrast enhancement. IMPRESSION: Decreased attenuation in the medial left occipital and right posterior parietal lobes, similar to the prior exam as described. The appearance on the current examination is more consistent with changes of encephalomalacia as no significant parenchymal enhancement is seen. No new foci of abnormal density are seen intracranially. Reviewed, Interpreted and Dictated by Kurt Tadeo MD Transcribed by Diay Hernandez Authenticated and [facility]
[2024-04-29] MEDS: SODIUM CHLORIDE 0.9% 10ML SYR (RAD ONLY) 10 ML IV (07:09)
[2024-04-29] MEDS: IOPAMIDOL-370 (76%);100ML BOTTLE 100 ML IV (07:09)
== END 2024-04-29 23:59 | disposition home or self-care (01) ==
LOC: RAD 06:21
PROVIDERS: PCP Family Medicine; Visit Provider Internal Medicine Medical Oncology
DX: R59.0 Localized enlarged lymph nodes (principal); C34.91 Malignant neoplasm of unspecified part of right bronchus or lung
CPT/HCPCS: 70460; Q9967

== ENCOUNTER 2024-05-27 08:35 | Outpatient (CLI) | payer MEDICARE, OTHER, SELFPAY ==
[2024-05-27 09:07] LABS: Basophils # 0.1 K/mm3 (0-0.2); Basophils % 1.9 % (0.1-2.0); Eosinophils # 0.2 K/mm3 (0.0-0.4); Eosinophils % 2.9 % (0.1-12.0); Lymphocytes # 1.8 K/mm3 (0.7-4.5); Lymphocytes % 26.6 % (10-50); Mean Corpuscular HGB Conc 33.3 g/dL (31.8-35.4); Mean Corpuscular Hemoglobin 29.7 pg (27.0-31.2); Mean Corpuscular Volume 89.1 fl (80-94); Mean Platelet Volume 10.1 fl (7.4-10.4); Monocytes # 0.6 K/mm3 (0.1-1.0); Monocytes % 8.1 % (1.7-9.3); Neutrophils # 4.2 K/mm3 (1.8-7.8); Neutrophils % 60.2 % (37.0-80.0); Nucleated Red Blood Cells # 0 10^3/uL; Nucleated Red Blood Cells % 0 %; Platelet Count 270 K/mm3 (142-424); Red Blood Count 4.04 M/mm3 (4.60-6.20); Red Cell Distribution Width 13.6 % (11.5-17.5); Red Cell Distribution Width-SD 44.1 fL; White Blood Count 6.9 K/mm3 (4.8-10.8)
[2024-05-27 10:06] LABS: Alanine Aminotransferase 13 U/L (12-78); Albumin Level 4.1 g/dl (3.5-5.0); Alkaline Phosphatase 69 U/L (38-126); Anion Gap 14.5 mEq/L (5-15); Aspartate Amino Transferase 25 U/L (17-59); Bilirubin,Total 0.6 mg/dl (0.2-1.3); Blood Urea Nitrogen 29 mg/dl (9-20); Calcium 9.4 mg/dl (8.4-10.2); Carbon Dioxide 27 mmol/L (22.0-30.0); Chloride 102 mmol/L (98-107); Estimated Glomerular Filt Rate 75 ml/min (>60); GFR (African American) 90 ML/MIN (>60); Globulin 4.1 g/dL (1.3-3.2); Glucose 94 mg/dl (74-100); Potassium 4.5 mmoL/L (3.5-5.1); Sodium 139 mmol/L (136-145); Total Protein,Serum 8.2 g/dl (6.3-8.2)
--- NOTE | 2024-05-27 10:15 | CT_ITS ---
FINAL REPORT TECHNIQUE: After the administration of intravenous contrast, axial images through the chest were performed by computed tomography.This study was performed with techniques to keep radiation doses as low as reasonably achievable, (ALARA). Individualized dose reduction techniques using automated exposure control or adjustment of mA and/or kV according to the patient''s size were employed. CLINICAL HISTORY: LUNG MASS COMPARISON: 03/11/2024 FINDINGS: There is a peripheral nodule in the anterior right upper lobe measuring 6 mm which is unchanged with surrounding scarring. A spiculated mass in the right perihilar mid lung is present. The central component measures 42 x 35 mm and is unchanged. The left lung is clear. Interstitial prominence in the periphery of the right lower lobe could represent scarring or, less likely, lymphangitic tumor spread. Mild adenopathy in the right paratracheal region and AP window is stable. Right hilar adenopathy is unchanged. Right lower lobe peribronchial lymph node on image 48 of series 4 measures 16 mm and previously measured 17 mm. Right subcarinal adenopathy measuring 27 x 21 mm is essentially unchanged. An enlarged right precarinal lymph node measuring 24 x 24 mm is stable. There is a small right pleural effusion. Occlusion of the left innominate vein is noted. IMPRESSION: Right lower lobe mass with intrathoracic adenopathy is unchanged. Small right pleural effusion is mildly improved. Stable, persistent intrathoracic disease. Reviewed, Interpreted and Dictated by Krishna Lenz MD Transcribed by Guerda Fulton Authenticated and [facility]
--- NOTE | 2024-05-27 10:15 | CT_ITS ---
FINAL REPORT TECHNIQUE: IV contrast enhanced exam. Coronal and sagittal images were obtained and reviewed. This study was performed with techniques to keep radiation doses as low as reasonably achievable, (ALARA). Individualized dose reduction techniques using automated exposure control or adjustment of mA and/or kV according to the patient''s size were employed. CLINICAL HISTORY: LUNG MASS COMPARISON: 03/11/2024 FINDINGS: Abdomen: The solid organs are negative. There is moderate ascites in the upper abdomen which is slightly worse. Soft tissue density along the anterior liver, best seen on images 42-61 of series 5 are compatible with peritoneal tumor. Similar findings are also seen in the left upper quadrant. There is no adenopathy. The gallbladder is contracted. Pelvis: The appendix is normal. Moderate ascites is slightly worse. No pelvic adenopathy is seen. Pelvic bowel loops are unremarkable. IMPRESSION: Mild worsening of ascites attributed to peritoneal tumor with peritoneal tumor implants newly seen from previous exam. No evidence of liver or adrenal metastases. Reviewed, Interpreted and Dictated by Krishna Lenz MD Transcribed by Guerda Fulton Authenticated and [facility]
[2024-05-27] MEDS: SODIUM CHLORIDE 0.9% 10ML SYR (RAD ONLY) 10 ML IV (10:54)
[2024-05-27] MEDS: BARIUM SULFATE(READI-CAT2);450ML BOTTLE 450 ML PO (10:54)
[2024-05-27] MEDS: IOPAMIDOL-370 (76%);100ML BOTTLE 75 ML IV (10:54)
== END 2024-05-27 23:59 | disposition home or self-care (01) ==
LOC: RAD 08:36
PROVIDERS: PCP Family Medicine; Visit Provider Internal Medicine Medical Oncology
DX: C34.91 Malignant neoplasm of unspecified part of right bronchus or lung (principal)
CPT/HCPCS: 36415; 71260; 74177; 80053; 85025; Q9967

== ENCOUNTER 2024-07-29 07:37 | Outpatient (CLI) | payer MEDICARE, OTHER, SELFPAY ==
--- OUTSIDE RECORDS SUMMARY | 2024-07-29 07:41 | XMS_ITS | Clinical Summary ---
Author Organization Healthcare Address [address] [place] [address] Care Team Providers Care Production Metal Sprayer Name Role Phone Jj Coates MD Primary Care Provider +1- [phone] Family History Medical History Relation Name Comments Melanoma Father FH: melanoma Relation Name Status Comments Father Social History Tobacco Use Types Packs/Day Years Used Date Smoking Tobacco: Every Day Sex and Gender Information Value Date Recorded Sex Assigned at Not on file Legal Sex Male 6:48 PM EDT Gender Identity Not on file Sexual Orientation Not on file Last Filed Vital Signs Vital Sign Reading Time Taken Comments Blood Pressure 135/93 06/06/2017 8:31 AM EDT Pulse 63 06/06/2017 8:31 AM EDT Temperature - - Respiratory Rate - - Oxygen Saturation - - Inhaled Oxygen Concentration - - Weight 90.7 kg (200 lb) 06/06/2017 8:31 AM EDT Height 172.7 cm (5' 8 ) 06/06/2017 8:31 AM EDT Body Mass Index 30.41 06/06/2017 8:31 AM EDT Plan of Treatment Not on file Care Teams Production Metal Sprayer Relationship Specialty Start Date End Date Jj Coates MD [address] [place] [id number] PCP - General 06/30/20
--- OUTSIDE RECORDS SUMMARY | 2024-07-29 07:41 | XMS_ITS | Referral Summary ---
Author Organization [facility] In iatives Address [address] [place] [address] Care Team Providers Care Supply Chain Engineer Name Role Phone Unavailable Primary Care Provider Unavailabl e Social History Tobacco Use Types Packs/Day Years Used Date Smoking Tobacco: Never Assessed Interpersonal Safety Answer Date Record ed Family or friends hurt you Not on file 03/07 Family or friends insult you Not on file Family or friends threaten you Not on file 0 03/07/2023 Family or friends scream or curse at you Not on file 03/07/2023 Housing Stability Answer Date Recorded Living situation today Not on file Living situation problems Not on file 2023 Food Insecurity Answer Date Recorded Food run out past 12 months Not on file 02/17 Food did not last past 12 months Not on file 03/07/2023 Employment Answer Date Recorded Help finding and keeping a job Not on file 0 03/07/2023 Family and Community Support Answer Charles e Recorded Help with Day to Day Activities Not on file 03/07/2023 Feeling Lonely or Isolated Not on file 03/07 Educational Attainment Answer Date Jacob rded Speak language other than Urdu at home Not on file 03/07/2023 Want help with school or training Not on file 03/07/2023 Depression Answer Date Recorded PHQ-2 Risk Not on file 03/07/2023 Disabilities Answer Date Recorded Difficulty concentrating Not on file 024 Difficulty doing errands alone Not on file 0 03/07/2023 Substance Use Answer Date Recorded Used prescription meds for non-medical reasons N ot on file 03/07/2023 Used illegal drugs past 12 months Not on file 03/07/2023 Sex and Gender Information Value Date Recorded Sex Assigned at Not on file Legal Sex Male 12:05 PM CDT Gender Identity Not on file Sexual Orientation Not on file Plan of Treatment Not on file
--- OUTSIDE RECORDS SUMMARY | 2024-07-29 07:41 | XMS_ITS | Clinical Summary ---
Author Organization [facility] In iatives Address [address] [place] [address] Care Team Providers Care Juice Bar Team Member Name Role Phone Unavailable Primary Care Provider [...] Date Jacob rded Speak language other than Polish at home Not on file 03/07/2023 Want [...] Orientation Not on file Plan of Treatment Health Maintenance Due Date Last Done Comments CT Colonography 1956 Colonoscopy 1956 Colorectal Cancer Screening 1956 FOBT/FIT 1956 Fit-DNA (Cologuard) 1956 Sigmoidoscopy 1956 Depression Screening (12+) 1968 Tobacco Cessation Counseling and Screening (12+) 1968 Hepatitis C Screening 1974 Pneumococcal 50+ years (1 of 1 - PCV) 2006 Shingles Vaccine (Zoster) (1 of 2) 2006 COVID-19 VACCINE ( season) 2023 02/01/2021, 07/16/2020, 06/15/2020 Falls Risk Screening 02/18/2024 Influenza Vaccine (Season Ended) 2024 DTAP/TDAP/TD VACCINES (3 - T d or Tdap) 04/15/2027 04/15/2017, 07/18/2016 Respiratory Syncytial Virus (RSV) Adult or (1 - 1-dose 75+ series) 11/07/2031
--- NOTE | 2024-07-29 08:00 | CT_ITS ---
FINAL REPORT TECHNIQUE: Axial CT of the brain with contrast. Coronal reformatted images were obtained. This study was performed with techniques to keep radiation doses as low as reasonably achievable, (ALARA). Individualized dose reduction techniques using automated exposure control or adjustment of mA and/or kV according to the patient's size were employed. CLINICAL HISTORY: hx of Lung Neoplasm, checking to see if it has spread into the brain COMPARISON: 04/29/2024 FINDINGS: There is mild diffuse atrophy. There is extensive decreased attenuation in the deep white matter. Encephalomalacia is identified in the right posterior parietal lobe and left occipital lobe. No definite enhancing mass is identified. There is extensive mucoperiosteal thickening in both maxillary, ethmoid, and sphenoid sinuses. There is extensive opacification of the mastoid air cells, right greater than left. IMPRESSION: Stable areas of encephalomalacia. No definite enhancing masses. Chronic pansinusitis with bilateral mastoid sinusitis. Reviewed, Interpreted and Dictated by Kurt Tadeo MD Transcribed by Raysa Pablo Authenticated and [facility]
[2024-07-29 08:02] LABS: Blood Urea Nitrogen 33 mg/dl (9-20); Estimated Glomerular Filt Rate 75 ml/min (>60); GFR (African American) 90 ML/MIN (>60)
[2024-07-29] MEDS: SODIUM CHLORIDE 0.9% 10ML SYR (RAD ONLY) 10 ML IV (08:52)
[2024-07-29] MEDS: IOPAMIDOL-300 (61%) 100ML VIAL 100 ML IV (08:52)
== END 2024-07-29 23:59 | disposition home or self-care (01) ==
LOC: RAD 07:38
PROVIDERS: PCP Family Medicine; Visit Provider Internal Medicine Medical Oncology
DX: D49.1 Neoplasm of unspecified behavior of respiratory system (principal); G93.89 Other specified disorders of brain; J32.4 Chronic pansinusitis; J32.8 Other chronic sinusitis
CPT/HCPCS: 36415; 70460; 82565; 84520; Q9967

== ENCOUNTER 2024-08-05 10:57 | Outpatient (CLI) | payer MEDICARE, SELFPAY ==
--- OUTSIDE RECORDS SUMMARY | 2024-08-05 11:00 | XMS_ITS | Clinical Summary ---
Author Organization [facility] In iatives Address [address] [place] [address] Care Team Providers Care Mma Fighter Name Role Phone Unavailable Primary Care Provider [...] Date Jacob rded Speak language other than Slovak at home Not on file 03/07/2023 Want [...]
--- OUTSIDE RECORDS SUMMARY | 2024-08-05 11:00 | XMS_ITS | Clinical Summary ---
Author Organization Healthcare Address [address] [place] [address] Care Team Providers Care Spares Scheduler Name Role Phone Jj Coates MD Primary Care Provider +1- [phone] Family History Medical History Relation Name Comments [...] of Treatment Not on file Care Teams Spares Scheduler Relationship Specialty Start Date End Date Jj Coates MD [address] [place] [id number] PCP - General 06/30/20
--- OUTSIDE RECORDS SUMMARY | 2024-08-05 11:00 | XMS_ITS | Referral Summary ---
Author Organization [facility] In [facility]atives Address [address] [place] [address] Care Team Providers Care Splicer Apprentice Name Role Phone Unavailable Primary Care Provider [...] Date Jacob rded Speak language other than Frisian at home Not on file 03/07/2023 Want [...]
[2024-08-05 11:41] LABS: Basophils # 0.1 K/mm3 (0-0.2); Basophils % 1.4 % (0.1-2.0); Eosinophils # 0.2 Kmm3 (0.0-0.4); Eosinophils % 2.2 % (0.1-12.0); Hematocrit 37.4 % (42.0-52.0); Hemoglobin 12.6 g/dL (14.1-18.0); Immature Granulocytes # 0.01 10^3uL; Immature Granulocytes % 0.1 %; Lymphocytes # 1.3 K/mm3 (0.7-4.5); Lymphocytes % 16.4 % (10-50); Mean Corpuscular HGB Conc 33.7 g/dL (31.8-35.4); Mean Corpuscular Hemoglobin 31.1 pg (27.0-31.2); Mean Corpuscular Volume 92.3 fl (80-94); Mean Platelet Volume 10.2 fl (7.4-10.4); Monocytes # 0.5 K/mm3 (0.1-1.0); Monocytes % 6.7 % (1.7-9.3); Neutrophils # 5.6 K/mm3 (1.8-7.8); Neutrophils % 73.2 % (37.0-80.0); Nucleated Red Blood Cells # 0 10^3/uL; Nucleated Red Blood Cells % 0 %; Platelet Count 275 K/mm3 (142-424); Red Blood Count 4.05 M/mm3 (4.60-6.20); Red Cell Distribution Width 15.6 % (11.5-17.5); Red Cell Distribution Width-SD 53.1 fL; White Blood Count 7.6 K/mm3 (4.8-10.8)
[2024-08-05 12:04] LABS: Albumin Level 4.1 g/dl (3.5-5.0); Chloride 103 mmol/L (98-107); Potassium 4.2 mmoL/L (3.5-5.1); Sodium 134 mmol/L (136-145)
[2024-08-05 12:07] LABS: Alanine Aminotransferase 19 U/L (12-78); Albumin/Globulin Ratio 1.1 (1.1-1.8); Alkaline Phosphatase 49 U/L (38-126); Anion Gap 10.2 mEq/L (5-15); Aspartate Amino Transferase 41 U/L (17-59); Bilirubin,Total 0.4 mg/dl (0.2-1.3); Blood Urea Nitrogen 27 mg/dl (9-20); Carbon Dioxide 25 mmol/L (22.0-30.0); Estimated Glomerular Filt Rate 84 ml/min (>60); GFR (African American) 102 ML/MIN (>60); Globulin 3.6 g/dL (1.3-3.2); Total Protein,Serum 7.7 g/dl (6.3-8.2)
[2024-08-05 12:08] LABS: Calcium 8.8 mg/dl (8.4-10.2); Glucose 150 mg/dl (74-100)
== END 2024-08-05 23:59 | disposition home or self-care (01) ==
LOC: LAB 10:57
PROVIDERS: PCP Family Medicine; Visit Provider Internal Medicine Medical Oncology
DX: D49.1 Neoplasm of unspecified behavior of respiratory system (principal)
CPT/HCPCS: 36415; 80053; 85025

== ENCOUNTER 2024-08-31 06:53 | Outpatient (CLI) | payer MEDICARE, OTHER, SELFPAY ==
--- OUTSIDE RECORDS SUMMARY | 2024-08-31 06:54 | XMS_ITS | Clinical Summary ---
Author Organization [employer] ([place], [place], [place], [place]) Address [address] [place] [address] Care Team Providers Care Grain Mill Products Inspector Name Role Phone Unavailable Primary Care Provider Unavailabl e Social History Tobacco Use Types Packs/Day Years Used Date Smoking Tobacco: Never Assessed Food Insecurity Answer Date Recorded Food run [...] Date Jacob rded Speak language other than Croatian at home Not on file 03/07/2023 Want help with school or training Not on file 03/07/2023 Substance Use Answer Date Recorded Used [...] 06/15/2020 Falls Risk Screening 02/18/2024 Influenza Vaccine (#1) 2024 DTAP/TDAP/TD VACCINES (3 - T d or Tdap) 04/15/2027 04/15/2017, 07/18/2016 Respiratory Syncytial Virus (RSV) Adult or (1 - 1-dose 75+ series) 11/07/2031
--- OUTSIDE RECORDS SUMMARY | 2024-08-31 06:54 | XMS_ITS | Referral Summary ---
Author Organization [employer] ([place], [place], [place], [place]) Address [address] [place] [address] Care Team Providers Care Real Estate Subagent Name Role Phone Unavailable Primary Care Provider [...]
--- OUTSIDE RECORDS SUMMARY | 2024-08-31 06:54 | XMS_ITS | Clinical Summary ---
Author Organization Healthcare Address [address] [place] [address] Care Team Providers Care Avionics Electronics Technician Name Role Phone Jj Coates MD Primary Care Provider +1- [phone] Family History Medical History Relation Name Comments [...] of Treatment Not on file Care Teams Avionics Electronics Technician Relationship Specialty Start Date End Date Jj Coates MD [address] [place] [id number] PCP - General 06/30/20
[2024-08-31] MEDS: IOPAMIDOL-370 (76%);100ML BOTTLE 75 ML IV (07:27)
[2024-08-31] MEDS: SODIUM CHLORIDE 0.9% 10ML SYR (RAD ONLY) 10 ML IV (07:27)
--- NOTE | 2024-08-31 08:00 | CT_ITS ---
FINAL REPORT TECHNIQUE: After the administration of intravenous contrast, axial images through the chest were performed by computed tomography.This study was performed with techniques to keep radiation doses as low as reasonably achievable, (ALARA). Individualized dose reduction techniques using automated exposure control or adjustment of mA and/or kV according to the patient''s size were employed. CLINICAL HISTORY: lung neoplasm COMPARISON: 05/27/2024 FINDINGS: Multifocal mediastinal adenopathy is noted. A lower right paratracheal node measuring 24 x 22 mm is stable. Right subcarinal adenopathy measuring 25 x 20 mm previously measured 27 x 21 mm. No new sites of adenopathy. The heart size is normal. There is no pericardial effusion. There is a moderate right pleural effusion which has increased from the previous study. Right perihilar soft tissue mass measuring 4.1 x 2.9 cm previously measured 4.2 x 3.5 cm. There are a few peripheral nodular opacities in the right upper lobe which are stable, largest measuring up to 8 mm. IMPRESSION: Stable to minimally improved right hilar lesion along with adenopathy. Right pleural effusion is worse. Reviewed, Interpreted and Dictated by Krishna Lenz MD Transcribed by Guerda Fulton Authenticated and [facility]
--- NOTE | 2024-08-31 08:00 | CT_ITS ---
FINAL REPORT TECHNIQUE: IV contrast enhanced exam This study was performed with techniques to keep radiation doses as low as reasonably achievable, (ALARA). Individualized dose reduction techniques using automated exposure control or adjustment of mA and/or kV according to the patient''s size were employed. CLINICAL HISTORY: lung neoplasm COMPARISON: 05/27/2024 FINDINGS: Abdomen: Solid organs are unremarkable. The previously noted peritoneal disease in the anterior right upper quadrant is not readily evident on today's exam and considered improved. Peritoneal tumor in the left upper quadrant has also improved/resolved. Small ascites is improved. There is no adenopathy. Small amount of residual peritoneal tumor in the right omental along the inferior liver margin is stable. Bowel is unremarkable. Pelvis: Moderate ascites is similar to the previous exam. No pelvic adenopathy or mass identified. IMPRESSION: Improved peritoneal tumor, particularly in the perihepatic region. Mild improved ascites. No solid organ metastasis. Reviewed, Interpreted and Dictated by Krishna Lenz MD Transcribed by Guerda Fulton Authenticated and [facility]
== END 2024-08-31 23:59 | disposition home or self-care (01) ==
LOC: RAD 06:53
PROVIDERS: PCP Family Medicine; Visit Provider Internal Medicine Medical Oncology
DX: D49.0 Neoplasm of unspecified behavior of digestive system (principal); D49.1 Neoplasm of unspecified behavior of respiratory system; J90 Pleural effusion, not elsewhere classified; R18.8 Other ascites; R59.0 Localized enlarged lymph nodes
CPT/HCPCS: 71260; 74177; Q9967

== ENCOUNTER 2024-09-08 07:32 | Outpatient (CLI) | payer MEDICARE, SELFPAY ==
--- OUTSIDE RECORDS SUMMARY | 2024-09-08 07:34 | XMS_ITS | Clinical Summary ---
Author Organization [employer] ([place], [place], [place], [place]) Address [address] [place] [address] Care Team Providers Care Clay Transporter Name Role Phone Unavailable Primary Care Provider [...] Date Jacob rded Speak language other than Kinyarwanda at home Not on file 03/07/2023 Want [...]
--- OUTSIDE RECORDS SUMMARY | 2024-09-08 07:34 | XMS_ITS | Referral Summary ---
Author Organization [employer] ([place], [place], [place], [place]) Address [address] [place] [address] Care Team Providers Care Tax Examining Technician Name Role Phone Unavailable Primary Care Provider [...] Date Jacob rded Speak language other than Macedonian at home Not on file 03/07/2023 Want [...]
--- OUTSIDE RECORDS SUMMARY | 2024-09-08 07:34 | XMS_ITS | Clinical Summary ---
[facility] Address [address] [place] [address] Care Team Providers Care Air Brake Operator Name Role Phone Jj Coates MD Primary Care Provider Allergies No known active allergies Immunizations Immunization Administration Dates Next Due Tdap 04/15/2017 Social History Tobacco Use Types Packs/Day Years Used Date Smoking Tobacco: Every Day Cigarettes Alcohol Use Standard Drinks/Week Comments No 0 (1 standard drink = 0.6 oz pur e alcohol) Abuse Screen Answer Date Recorded Unsafe at Home or Work/School Not on file Feels Threatened by Someone? Not on file 01/2023 Does Anyone Keep You from Co ntacting Others or Doint Things Outside the Home? Not on file 11/28/2022 Physical Sign of Abuse Present Not on file 1 Housing Stability Answer Date Recorded Current Living Arrangements Not on file 11/17 Potentially Unsafe Housing Conditions Not on gary e 11/28/2022 Family and Community Support Answer Charles e Recorded Help with Day-to-Day Activities Not on file 11/28/2022 Lonely or Isolated Not on file 11/28/2022 Employment Answer Date Recorded Do you want help finding or keeping work or a angelo b? Not on file 11/28/2022 Disabilities Answer Date Recorded Concentrating, Remembering, or Making Decisions Difficulty Not on file 11/28/2022 Doing Errands Independently Difficulty Not on fi le 11/28/2022 Education Answer Date Recorded Help with school or training? Not on file Preferred Language Not on file 11/28/2022 Sex and Gender Information Value Date Recorded Sex Assigned at Not on file Legal Sex Male 8:04 AM EST Gender Identity Not on file Sexual Orientation Not on file Last Filed Vital Signs Vital Sign Reading Time Taken Comments Blood Pressure 187/81 04/15/2017 8:04 AM EST Pulse 62 04/15/2017 8:04 AM EST Temperature 36.9 C (98.4 F) 04/15/2017 8:04 AM EST Respiratory Rate 18 04/15/2017 8:04 AM EST Oxygen Saturation 98% 04/15/2017 8:04 AM EST Inhaled Oxygen Concentration - - Weight 88.5 kg (195 lb) 04/15/2017 8:04 AM EST Height 172.7 cm (5' 8 ) 04/15/2017 8:04 AM EST Body Mass Index 29.65 04/15/2017 8:04 AM EST Plan of Treatment Health Maintenance Due Date Last Done Comments ANNUAL PHYSICAL 1955 HEPATITIS C SCREENING 1955 COLOGUARD 2001 COLON CANCER SCREENING 5 YEAR SIGMOIDOSCOPY 2001 COLONOSCOPY [address] CANCER SCREENING 2001 CT COLONOGRAPHY 2001 FECAL OCCULT BLOOD TEST 2001 FIT Testing (1 year) 2001 Pneumococcal Vaccine 50+ (1 of 1 - PCV) 2006 ZOSTER VACCINE (1 of 2) 2006 AAA SCREEN ONCE 2021 COVID-19 Vaccine (1 - 2023- season) 2023 INFLUENZA VACCINE 11/17/2024 TDAP/TD VACCINES (2 - Td or Tdap) 04/15/[address] [place] [address] [facility] [place] [id number] [facility] COMP[facility] Care Teams Air Brake Operator Relationship Specialty Start Date End Date Jj Coates MD [address] [facility] [address] [place] [id number] PCP - General Family Medicine 04/15/17
--- OUTSIDE RECORDS SUMMARY | 2024-09-08 07:34 | XMS_ITS | Clinical Summary ---
Author Organization Healthcare Address [address] [place] [address] Care Team Providers Care Lacquer Sizer Name Role Phone Jj Coates MD Primary Care Provider +1- [phone] Family History Medical History Relation Name Comments [...] of Treatment Not on file Care Teams Lacquer Sizer Relationship Specialty Start Date End Date Jj Coates MD [address] [place] [phone] PCP - General 06/30/20
[2024-09-08 08:48] VITALS: BP 133/73; PULSE 56; RESP 18; TEMP 36.6; O2SAT 98
[2024-09-08 08:56] VITALS: BMI 22.1
--- NOTE | 2024-09-08 09:26 | XR_ITS ---
FINAL REPORT CLINICAL HISTORY: Thoracentesis--s/p rt-- COMPARISON: 03/16/2024 FINDINGS: PA and lateral views of the chest were obtained. There is a moderate right pleural effusion. Right perihilar opacity could represent pneumonia or mass. The left lung is clear. The mediastinum has a normal appearance. The cardiac silhouette is unremarkable. IMPRESSION: Abnormalities in the right chest. Chest CT correlation recommended or follow-up chest x-ray. Reviewed, Interpreted and Dictated by Krishna Lenz MD Transcribed by Guerda Fulton Authenticated and [facility]
[2024-09-08 09:45] VITALS: BP 135/75; PULSE 51; RESP 16; TEMP 36.1; O2SAT 97
[2024-09-08 10:00] VITALS: BP 133/70; PULSE 50; RESP 16; TEMP 36.1; O2SAT 98
--- NOTE | 2024-09-08 10:00 | US_ITS ---
FINAL REPORT CLINICAL HISTORY: lung neoplasm -- RT PLEURAL EFFUSION -- RT THORACENTESIS -- BILL ROSSI -- 350 ML FINDINGS: ULTRASOUND-GUIDED THORACENTESIS HISTORY: Pleural effusion. ATTENDING PHYSICIAN: Dr. Lenz PHYSICIAN ALLEY TENDER: Bill Sterling PA-C TECHNIQUE: Informed consent was obtained from the patient. The indications and complications were discussed with the patient prior to beginning the procedure. This included, but was not limited to pain, bleeding, infection, and pneumothorax requiring chest tube placement. The right back was then prepped and draped in sterile fashion. 1% Lidocaine was used for local anesthesia. Utilizing sonographic guidance, a standard thoracentesis needle and sheath were inserted into the pleural space and approximately 350 mL of pleural fluid was successfully removed without complication. The patient tolerated the procedure well. IMPRESSION: Technically successful sonographic guided right-sided thoracentesis as above. Films reviewed , interpreted and dictated by Dr. Lenz. Transcribed by Bill Sterling PA-C. Reviewed, Interpreted and Dictated by Krishna Lenz MD Transcribed by ENID Colon Authenticated and [facility]
[2024-09-08 10:15] VITALS: BP 146/84; PULSE 52; RESP 16; TEMP 36.1; O2SAT 98
[2024-09-08 10:30] VITALS: BP 140/76; PULSE 61; RESP 16; TEMP 36.1; O2SAT 99
[2024-09-08 10:45] VITALS: BP 135/75; PULSE 64; RESP 16; TEMP 36.1; O2SAT 99
== END 2024-09-08 10:45 | disposition home or self-care (01) ==
PROVIDERS: PCP Family Medicine; Visit Provider Internal Medicine Medical Oncology
DX: R91.8 Other nonspecific abnormal finding of lung field (principal); D49.1 Neoplasm of unspecified behavior of respiratory system; R59.0 Localized enlarged lymph nodes
CPT/HCPCS: 32555; 71046

== ENCOUNTER 2024-11-03 07:19 | Outpatient (CLI) | payer MEDICARE, SELFPAY ==
--- NOTE | 2024-11-03 07:15 | CT_ITS ---
FINAL REPORT TECHNIQUE: Multiple axial CT sections were performed from the foramen magnum to the vertex. Coronal reformatted images were also obtained. Precontrast and postcontrast injection images were obtained. This study was performed with technique to keep radiation doses as low as reasonably achievable, (ALARA). Individualized dose reduction techniques using automated exposure control or adjustment of mA and/or kV according to the patient size were employed. 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 Old lacunar infarct is seen in the left calvin. The ventricles are normal in size. There is no evidence of hemorrhage. No masses are identified. No extra-axial fluid collection is seen. No osseous abnormality is seen on the bone window images. There is a polyp or mucous retention cyst in the sphenoid sinus. Mucous retention cysts are seen in the bilateral maxillary sinuses. Postcontrast images demonstrate no abnormal enhancement. IMPRESSION: Chronic changes as above. No acute intracranial abnormality or evidence of metastatic brain disease. Reviewed, Interpreted and Dictated by Krishna Lenz MD Transcribed by Shawna Bello Authenticated and [facility]
--- OUTSIDE RECORDS SUMMARY | 2024-11-03 07:21 | XMS_ITS | Clinical Summary ---
Author Organization Healthcare Address [address] [place] [address] Care Team Providers Care Outdoor Pursuits Instructor Name Role Phone Jj Coates MD Primary Care Provider +1- [phone] Family History Medical History Relation Name Comments [...] of Treatment Not on file Care Teams Outdoor Pursuits Instructor Relationship Specialty Start Date End Date Jj Coates MD [address] [place] [id number] PCP - General 06/30/20
--- OUTSIDE RECORDS SUMMARY | 2024-11-03 07:21 | XMS_ITS | Clinical Summary ---
Author Organization [facility] Address [address] [place] [address] Care Team Providers Care Glass Grinder Name Role Phone Jj Coates MD Primary [...] 2021 COVID-19 Vaccine (1 - 2023- season) 2024 INFLUENZA VACCINE 11/17/2024 TDAP/TD VACCINES (2 - Td or Tdap) 04/15/[address] [place] [address] [facility] [place] [id number] [facility] [place] WORKERS COMPENSATION [facility] ROSARIO Care Teams Glass Grinder Relationship Specialty Start Date End Date Jj Coates MD [address] [facility] [address] [place] [id number] PCP - General Family Medicine 04/15/17
[2024-11-03 07:43] LABS: Blood Urea Nitrogen 22 mg/dl (9-20); Creatinine,Serum 0.90 mg/dl (0.66-1.25); Estimated Glomerular Filt Rate 84 ml/min (>60); GFR (African American) 102 ML/MIN (>60)
[2024-11-03] MEDS: SODIUM CHLORIDE 0.9% 10ML SYR (RAD ONLY) 10 ML IV (08:38)
[2024-11-03] MEDS: IOPAMIDOL-300 (61%) 100ML VIAL 100 ML IV (08:38)
== END 2024-11-03 23:59 | disposition home or self-care (01) ==
LOC: RAD 07:20
PROVIDERS: PCP Family Medicine; Visit Provider Internal Medicine Medical Oncology
DX: D49.1 Neoplasm of unspecified behavior of respiratory system (principal); J34.1 Cyst and mucocele of nose and nasal sinus; R93.0 Abnormal findings on diagnostic imaging of skull and head, not elsewhere classified; R59.0 Localized enlarged lymph nodes; Z86.73 Personal history of transient ischemic attack (TIA), and cerebral infarction without residual deficits
CPT/HCPCS: 36415; 70470; 82565; 84520; Q9967

== ENCOUNTER 2024-11-04 10:15 | Outpatient (CLI) | payer MEDICARE, SELFPAY ==
--- OUTSIDE RECORDS SUMMARY | 2024-11-04 10:19 | XMS_ITS | Referral Summary ---
Author Organization [employer] ([place], [place], [place], [place]) Address [address] [place] [address] Care Team Providers Care Molder Vacuum Name Role Phone Unavailable Primary Care Provider [...] Date Jacob rded Speak language other than Divehi at home Not on file 03/07/2023 Want [...]
--- OUTSIDE RECORDS SUMMARY | 2024-11-04 10:19 | XMS_ITS | Clinical Summary ---
Author Organization [employer] ([place], [place], [place], [place]) Address [address] [place] [address] Care Team Providers Care Waxer Floor Name Role Phone Unavailable Primary Care Provider [...] Date Jacob rded Speak language other than Maltese at home Not on file 03/07/2023 Want [...] Shingles Vaccine (Zoster) (1 of 2) 2006 Falls Risk Screening 02/18/2024 COVID-19 VACCINE ( season) 2024 02/01/2021, 07/16/2020, 06/15/2020 Influenza Vaccine (#1) 2024 DTAP/TDAP/TD VACCINES (3 - T d or Tdap) 04/15/2027 04/15/2017, 07/18/2016 Respiratory Syncytial Virus (RSV) Adult or (1 - 1-dose 75+ series) 11/07/2031
--- OUTSIDE RECORDS SUMMARY | 2024-11-04 10:19 | XMS_ITS | Clinical Summary ---
Author Organization Healthcare Address [address] [place] [address] Care Team Providers Care Purchasing/Receiving Name Role Phone Jj Coates MD Primary Care Provider +1- [phone] Family History Medical History Relation Name Comments [...] of Treatment Not on file Care Teams Purchasing/Receiving Relationship Specialty Start Date End Date Jj Coates MD [address] [place] [phone] PCP - General 06/30/20
--- OUTSIDE RECORDS SUMMARY | 2024-11-04 10:19 | XMS_ITS | Clinical Summary ---
Author Organization [facility] Address [address] [place] [address] Care Team Providers Care Interactive Graphic Designer Name Role Phone Jj Coates MD Primary [...] Tdap) 04/15/[address] [place] [address] [facility] PPO [place] [id number] [facility] WORKERS COMPENSATION BLUE [facility]ST [facility] ROSARIO Care Teams Interactive Graphic Designer Relationship Specialty Start Date End Date Jj Coates MD [address] [place] [facility] [address] [place] [id number] PCP - General Family Medicine 04/15/17
[2024-11-04 10:30] LABS: Hematocrit 36.2 % (42.0-52.0); Hemoglobin 11.9 g/dL (14.1-18.0); Immature Granulocytes % 0.4 %; Mean Corpuscular HGB Conc 32.9 g/dL (31.8-35.4); Mean Corpuscular Hemoglobin 29.8 pg (27.0-31.2); Mean Corpuscular Volume 90.5 fl (80-94); Nucleated Red Blood Cells % 0 %; Platelet Count 301 K/mm3 (142-424); Red Blood Count 4.00 M/mm3 (4.60-6.20); Red Cell Distribution Width-SD 40.7 fL; White Blood Count 7.1 K/mm3 (4.8-10.8)
[2024-11-04 11:03] LABS: Alanine Aminotransferase 12 U/L (12-78); Albumin Level 4.2 g/dl (3.5-5.0); Albumin/Globulin Ratio 1.2 (1.1-1.8); Alkaline Phosphatase 62 U/L (38-126); Anion Gap 11.0 mEq/L (5-15); Aspartate Amino Transferase 22 U/L (17-59); Bilirubin,Total 0.3 mg/dl (0.2-1.3); Blood Urea Nitrogen 25 mg/dl (9-20); Calcium 9.1 mg/dl (8.4-10.2); Carbon Dioxide 29 mmol/L (22.0-30.0); Chloride 98 mmol/L (98-107); Creatinine,Serum 1.00 mg/dl (0.66-1.25); Estimated Glomerular Filt Rate 75 ml/min (>60); GFR (African American) 90 ML/MIN (>60); Globulin 3.6 g/dL (1.3-3.2); Glucose 72 mg/dl (74-100); Potassium 4.0 mmoL/L (3.5-5.1); Sodium 134 mmol/L (136-145); Total Protein,Serum 7.8 g/dl (6.3-8.2)
== END 2024-11-04 23:59 | disposition home or self-care (01) ==
LOC: LAB 10:16
PROVIDERS: PCP Family Medicine; Visit Provider Internal Medicine Medical Oncology
DX: C34.90 Malignant neoplasm of unspecified part of unspecified bronchus or lung (principal)
CPT/HCPCS: 36415; 80053; 85025

== ENCOUNTER 2024-11-30 07:05 | Outpatient (CLI) | payer MEDICARE, OTHER, SELFPAY ==
--- OUTSIDE RECORDS SUMMARY | 2024-11-30 07:07 | XMS_ITS | Clinical Summary ---
Author Organization [employer] ([place], [place], [place], [place]) Address [address] [place] [address] Care Team Providers Care Plater Helper Name Role Phone Unavailable Primary Care Provider [...] Date Jacob rded Speak language other than Korean at home Not on file 03/07/2023 Want [...]
--- OUTSIDE RECORDS SUMMARY | 2024-11-30 07:07 | XMS_ITS | Clinical Summary ---
Author Organization Healthcare Address [address] [place] [address] Care Team Providers Care Manager Employee Relations Name Role Phone Jj Coates MD Primary Care Provider +1- [phone] Family History Medical History Relation Name Comments [...] of Treatment Not on file Care Teams Manager Employee Relations Relationship Specialty Start Date End Date Jj Coates MD [address] [place] [phone] PCP - General 06/30/20
--- OUTSIDE RECORDS SUMMARY | 2024-11-30 07:07 | XMS_ITS | Referral Summary ---
Author Organization [employer] ([place], [place], [place], [place]) Address [address] [place] [address] Care Team Providers Care Wire Hanger Name Role Phone Unavailable Primary Care Provider [...] Date Jacob rded Speak language other than Georgian at home Not on file 03/07/2023 Want [...]
--- OUTSIDE RECORDS SUMMARY | 2024-11-30 07:07 | XMS_ITS | Clinical Summary ---
Author Organization [facility] Address [address] [place] [address] Care Team Providers Care Spinning And Winding Supervisor Name Role Phone Jj Coates MD Primary [...] of 2) 2006 AAA SCREEN ONCE 2021 INFLUENZA VACCINE 09/17/2024 COVID-19 Vaccine (1 - 2023- season) 2024 TDAP/TD VACCINES (2 - Td or Tdap) 04/15/[address] [place] [address] [facility] [place] [id number] [facility] WORKERS COMPENSATION BLUE [facility] ROSARIO Care Teams Spinning And Winding Supervisor Relationship Specialty Start Date End Date Jj Coates MD [address] [facility] [address] [place] [id number] PCP - General Family Medicine 04/15/17
[2024-11-30] MEDS: SODIUM CHLORIDE 0.9% 10ML SYR (RAD ONLY) 10 ML IV (07:38)
[2024-11-30] MEDS: IOPAMIDOL-370 (76%);100ML BOTTLE 75 ML IV (07:38)
--- NOTE | 2024-11-30 08:45 | CT_ITS ---
FINAL REPORT TECHNIQUE: Pre-and postcontrast axial imaging of the abdomen and pelvis was obtained.This study was performed with techniques to keep radiation doses as low as reasonably achievable, (ALARA). Individualized dose reduction technique using automated exposure control or adjustment of mA and/or kV according to the patient's size were employed. CLINICAL HISTORY: Lung Cancer COMPARISON: 08/31/2024 FINDINGS: The liver is homogeneous. No focal hepatic lesion is identified. The gallbladder is present. The spleen, adrenal glands, and pancreas are unremarkable. There is no hydronephrosis or solid renal mass. On precontrast imaging, no renal stones are identified. Abdominal GI tract is unremarkable. There is no lymphadenopathy. There is no evidence of small bowel obstruction. Appendix is not identified but there are no secondary findings to suggest appendicitis. No acute colon abnormality is identified. There is stable abnormal soft tissue in the omentum. There is stable abdominal and pelvic ascites. There is no new lymphadenopathy. No acute osseous abnormalities identified. IMPRESSION: Stable exam. Stable peritoneal metastatic disease. Stable ascites. Reviewed, Interpreted and Dictated by Sabi Tan MD Transcribed by Raysa Pablo Authenticated and [facility]
--- NOTE | 2024-11-30 08:45 | CT_ITS ---
FINAL REPORT TECHNIQUE: Axial images through the chest was performed with and without contrast. Reconstructed images were obtained and reviewed. This study was performed with techniques to keep radiation doses as low as reasonably achievable, (ALARA). Individualized dose reduction techniques using automated exposure control or adjustment of mA and/or kV according to the patient's size were employed. CLINICAL HISTORY: Lung Cancer COMPARISON: 08/31/2024 FINDINGS: There is no axilla lymphadenopathy. There is abnormal soft tissue along the right paratracheal margin and AP window which is stable. Precarinal lymph node measures 24 mm, was 23 mm. Subcarinal lymphadenopathy measures 34 mm, was 34 mm. There is no left hilar lymphadenopathy. Right hilar soft tissue is similar to prior. There is distal esophageal wall thickening which is nonspecific, radiation esophagitis is not excluded. Right pleural effusion is unchanged. There is no left effusion or pericardial effusion. There are 2 small posterior right upper lobe nodules on images 17 and 18 of series 8 which are unchanged. There is a right infrahilar masslike opacity measuring 4 cm on image 44, was 4 cm. There is right lower lobe airspace disease that is unchanged, could represent atelectasis versus pneumonia. Subpleural left upper lobe nodule measures 4 mm is stable on series 8, image 25. There is no acute osseous abnormality. IMPRESSION: Stable right hilar mass and mediastinal lymphadenopathy. Stable right effusion and right lower lobe airspace disease. Wall thickening of the distal esophagus, esophagitis not excluded. Right upper lobe nodules are unchanged. Reviewed, Interpreted and Dictated by Sabi Tan MD Transcribed by Raysa Pablo Authenticated and [facility]
== END 2024-11-30 23:59 | disposition home or self-care (01) ==
LOC: RAD 07:06
PROVIDERS: PCP Family Medicine; Visit Provider Internal Medicine Medical Oncology
DX: C34.01 Malignant neoplasm of right main bronchus (principal); C78.6 Secondary malignant neoplasm of retroperitoneum and peritoneum; J90 Pleural effusion, not elsewhere classified; J98.4 Other disorders of lung; R91.8 Other nonspecific abnormal finding of lung field; R59.0 Localized enlarged lymph nodes; K22.89 Other specified disease of esophagus; R18.8 Other ascites
CPT/HCPCS: 71270; 74178; Q9967

== ENCOUNTER 2024-12-03 12:40 | Outpatient (CLI) | payer MEDICARE, OTHER, SELFPAY ==
--- NOTE | 2024-12-03 12:49 | PC.NURSE ---
1249-collected labs via venipuncture stick in left ac with butterfly needle; pt to appt
[2024-12-03 13:04] LABS: Hematocrit 33.4 % (42.0-52.0); Hemoglobin 10.9 g/dL (14.1-18.0); Immature Granulocytes % 0.3 %; Mean Corpuscular HGB Conc 32.6 g/dL (31.8-35.4); Mean Corpuscular Hemoglobin 29.2 pg (27.0-31.2); Mean Corpuscular Volume 89.5 fl (80-94); Nucleated Red Blood Cells % 0 %; Platelet Count 283 K/mm3 (142-424); Red Blood Count 3.73 M/mm3 (4.60-6.20); Red Cell Distribution Width-SD 42.6 fL; White Blood Count 6.0 K/mm3 (4.8-10.8)
[2024-12-03 13:15] LABS: Albumin Level 3.7 g/dl (3.5-5.0); Chloride 98 mmol/L (98-107); Sodium 134 mmol/L (136-145)
[2024-12-03 13:16] LABS: Potassium 4.4 mmoL/L (3.5-5.1)
[2024-12-03 13:18] LABS: Alanine Aminotransferase 14 U/L (12-78); Albumin/Globulin Ratio 1.0 (1.1-1.8); Alkaline Phosphatase 64 U/L (38-126); Anion Gap 11.4 mEq/L (5-15); Aspartate Amino Transferase 26 U/L (17-59); Blood Urea Nitrogen 27 mg/dl (9-20); Carbon Dioxide 29 mmol/L (22.0-30.0); Creatinine,Serum 0.90 mg/dl (0.66-1.25); Estimated Glomerular Filt Rate 84 ml/min (>60); GFR (African American) 102 ML/MIN (>60); Globulin 3.7 g/dL (1.3-3.2); Total Protein,Serum 7.4 g/dl (6.3-8.2)
[2024-12-03 13:19] LABS: Calcium 8.4 mg/dl (8.4-10.2); Glucose 108 mg/dl (74-100)
[2024-12-03 13:31] LABS: Bilirubin,Total < 0.1 mg/dl (0.2-1.3)
== END 2024-12-03 23:59 | disposition home or self-care (01) ==
PROVIDERS: PCP Internal Medicine Medical Oncology; Visit Provider Family Medicine
DX: C34.90 Malignant neoplasm of unspecified part of unspecified bronchus or lung (principal)
CPT/HCPCS: 36415; 80053; 85025

== ENCOUNTER 2025-02-04 11:12 | Outpatient (CLI) | payer MEDICARE, OTHER, SELFPAY ==
--- NOTE | 2025-02-04 10:30 | CT_ITS ---
FINAL REPORT TECHNIQUE: Axial CT of the brain with contrast. Coronal reformatted images were obtained. This study was performed with techniques to keep radiation doses as low as reasonably achievable, (ALARA). Individualized dose reduction techniques using automated exposure control or adjustment of mA and/or kV according to the patient's size were employed. CLINICAL HISTORY: lung neoplasm COMPARISON: 11/03/2024 FINDINGS: There is an old left BLOWER ROOM ATTENDANT infarct and old right parietal infarct. The ventricles are normal in size. There is no evidence of hemorrhage. No masses are identified. No extra-axial fluid collection is seen. No osseous abnormality is seen on the bone window images. There is a polyp or mucous retention cyst in the sphenoid sinus. Mucous retention cysts are seen in the bilateral maxillary sinuses. There is no abnormal enhancement. IMPRESSION: Chronic changes as above. No acute intracranial abnormality or evidence of metastatic brain disease. If the patient is a candidate for MRI, contrast-enhanced MRI is recommended as a more sensitive study. Reviewed, Interpreted and Dictated by Krishna Lenz MD Transcribed by Guerda Fulton Authenticated and [facility]
--- OUTSIDE RECORDS SUMMARY | 2025-02-04 11:15 | XMS_ITS | Clinical Summary ---
Author Organization [facility] Address [address] [place] [address] Care Team Providers Care Placement Secretary Name Role Phone Jj Coates MD Primary [...] Tdap) 04/15/[address] [place] [address] [facility] [place] [id number] [facility] [place] BLUE [facility]IO Care Teams Placement Secretary Relationship Specialty Start Date End Date Jj Coates MD [address] [place] [facility] [address] [place] [id number] PCP - General Family Medicine 04/15/17
--- OUTSIDE RECORDS SUMMARY | 2025-02-04 11:15 | XMS_ITS | Clinical Summary ---
Author Organization [employer] ([place], [place], [place], [place], [place]) Address [address] [place] [address] Care Team Providers Care Photographic Artist Name Role Phone Unavailable Primary Care Provider [...] Date Jacob rded Speak language other than Greek at home Not on file 03/07/2023 Want [...]
--- OUTSIDE RECORDS SUMMARY | 2025-02-04 11:15 | XMS_ITS | Clinical Summary ---
Author Organization Healthcare Address [address] [place] [address] Care Team Providers Care Slotter Operator Helper Name Role Phone Jj Coates MD Primary Care Provider +1- [phone] Family History Medical History Relation Name Comments [...] of Treatment Not on file Care Teams Slotter Operator Helper Relationship Specialty Start Date End Date Jj Coates MD [address] [place] [id number] PCP - General 06/30/20
--- OUTSIDE RECORDS SUMMARY | 2025-02-04 11:15 | XMS_ITS | Referral Summary ---
Author Organization [employer] ([place], [place], [place], [place], [place]) Address [address] [place] [address] Care Team Providers Care Hand Slitter Name Role Phone Unavailable Primary Care Provider [...] Date Jacob rded Speak language other than Turkmen at home Not on file 03/07/2023 Want [...]
[2025-02-04 11:26] LABS: Hematocrit 38.5 % (42.0-52.0); Hemoglobin 12.8 g/dL (14.1-18.0); Immature Granulocytes % 0.4 %; Mean Corpuscular HGB Conc 33.2 g/dL (31.8-35.4); Mean Corpuscular Hemoglobin 29.2 pg (27.0-31.2); Mean Corpuscular Volume 87.7 fl (80-94); Nucleated Red Blood Cells % 0 %; Platelet Count 357 K/mm3 (142-424); Red Blood Count 4.39 M/mm3 (4.60-6.20); Red Cell Distribution Width-SD 40.5 fL; White Blood Count 7.0 K/mm3 (4.8-10.8)
[2025-02-04 12:17] LABS: Albumin Level 4.7 g/dl (3.5-5.0); Chloride 101 mmol/L (98-107); Potassium 4.2 mmoL/L (3.5-5.1); Sodium 137 mmol/L (136-145)
[2025-02-04 12:20] LABS: Alanine Aminotransferase 12 U/L (12-78); Albumin/Globulin Ratio 1.2 (1.1-1.8); Alkaline Phosphatase 72 U/L (38-126); Anion Gap 15.2 mEq/L (5-15); Aspartate Amino Transferase 21 U/L (17-59); Bilirubin,Total 0.4 mg/dl (0.2-1.3); Blood Urea Nitrogen 32 mg/dl (9-20); Calcium 10.1 mg/dl (8.4-10.2); Carbon Dioxide 25 mmol/L (22.0-30.0); Creatinine,Serum 1.00 mg/dl (0.66-1.25); Estimated Glomerular Filt Rate 74 ml/min (>60); GFR (African American) 90 ML/MIN (>60); Globulin 3.8 g/dL (1.3-3.2); Glucose 100 mg/dl (74-100); Total Protein,Serum 8.5 g/dl (6.3-8.2)
[2025-02-04] MEDS: IOPAMIDOL-370 (76%);100ML BOTTLE 75 ML IV (12:56)
[2025-02-04] MEDS: SODIUM CHLORIDE 0.9% 10ML SYR (RAD ONLY) 10 ML IV (12:56)
== END 2025-02-04 23:59 | disposition home or self-care (01) ==
LOC: RAD 11:13
PROVIDERS: PCP Family Medicine; Visit Provider Internal Medicine Medical Oncology
DX: C34.90 Malignant neoplasm of unspecified part of unspecified bronchus or lung (principal); J34.1 Cyst and mucocele of nose and nasal sinus; R93.0 Abnormal findings on diagnostic imaging of skull and head, not elsewhere classified; Z86.73 Personal history of transient ischemic attack (TIA), and cerebral infarction without residual deficits
CPT/HCPCS: 36415; 70460; 80053; 85025; Q9967

== ENCOUNTER 2025-02-15 10:40 | Outpatient (CLI) | payer MEDICARE, OTHER, SELFPAY ==
--- OUTSIDE RECORDS SUMMARY | 2025-02-15 11:04 | XMS_ITS | Referral Summary ---
Author Organization [employer] ([place], [place], [place], [place], [place]) Address [address] [place] [address] Care Team Providers Care Principal Process Engineer Name Role Phone Unavailable Primary Care [...] Date Jacob rded Speak language other than German at home Not on file 03/07/2023 Want [...]
--- OUTSIDE RECORDS SUMMARY | 2025-02-15 11:04 | XMS_ITS | Clinical Summary ---
Author Organization Healthcare Address [address] [place] [address] Care Team Providers Care Staff Pharmacist Hospital Name Role Phone Ricky Coates MD Primary Care Provider [phone] Family History Medical History Relation Name Comments [...] of Treatment Not on file Care Teams Staff Pharmacist Hospital Relationship Specialty Start Date End Date Ricky Coates MD [facility] [id number] PCP - General 06/30/20
--- OUTSIDE RECORDS SUMMARY | 2025-02-15 11:04 | XMS_ITS | Clinical Summary ---
Author Organization [employer] ([place], [place], [place], [place], [place]) Address [address] [place] [address] Care Team Providers Care Dentist Attendant Name Role Phone Unavailable Primary Care Provider [...] Date Jacob rded Speak language other than Citizen [place] at home Not on file 03/07/2023 Want [...]
--- OUTSIDE RECORDS SUMMARY | 2025-02-15 11:04 | XMS_ITS | Clinical Summary ---
[facility] Organization [facility] Address [address] [place] [address] Care Team Providers Care Swager Operator Name Role Phone Jj Coates MD [...] Tdap) 04/15/[id number] [place] [address] [facility] [place] [id number] [facility] [employer] [facility] Care Teams Swager Operator Relationship Specialty Start Date End Date Jj Coates MD [address] [place] [facility] [address] [place] [address] PCP - General Family Medicine 04/15/17
[2025-02-15 11:22] LABS: Ammonia < 9 umol/L (9-30)
[2025-02-15 12:28] LABS: Thyroid Stimulating Hormone 1.98 uIU/mL (0.465-4.68)
[2025-02-15 12:46] LABS: Vitamin B12 648 pg/mL (239-931)
== END 2025-02-15 23:59 | disposition home or self-care (01) ==
LOC: LAB 10:43
PROVIDERS: PCP Family Medicine; Visit Provider Internal Medicine Medical Oncology
DX: C34.90 Malignant neoplasm of unspecified part of unspecified bronchus or lung (principal); F03.90 Unspecified dementia, unspecified severity, without behavioral disturbance, psychotic disturbance, mood disturbance, and anxiety
CPT/HCPCS: 36415; 82140; 82607; 84443